=== PATIENT | female | born 1945 | race African-American/Black ===

== ENCOUNTER → 2016-11-25 | Outpatient (CLI) | payer MEDICARE ==
[~2016-11-25] MED LIST: ASPI81 PO; ASPI81CH CHEW; HUMA100I SC; HUMALOG SQ; IRON18TA2 PO; LANTUS2P SQ; LEVO.05 PO; PLAV75TA PO; SYNT50TA PO; blood pressure med
[2016-11-25 09:53] LABS: BACTERIA, URINE RARE /hpf; BLOOD, URINE NEG (NEG); GLUCOSE,URINE 70 mg/dL (NEG); KETONE, URINE NEG (NEG); MUCUS URINE FEW /lpf (OCC); NITRITE,URINE NEG (NEG); PH, URINE 5.5 (5.0-8.5); URINE COLOR LIGHT-YELLOW (YELLW/STRAW)
[2016-11-25 09:56] LABS: BASOPHIL % 0.6 % (0.0-2.0); EOSINOPHIL # 0.1 TH/MM3 (0-0.4); EOSINOPHIL % 1.3 % (0.0-4.0); HEMO FLAGS DIFF FINAL; LYMPH % 29.7 % (9.0-44.0); MEAN CELL VOLUME 88.9 FL (80.0-100.0); MEAN CORPUSCULAR HEMOGLOBIN 28.8 PG (27.0-34.0); MEAN CORPUSCULAR HGB CONC 32.4 % (32.0-36.0); MONO % 8.4 % (0.0-8.0); PLATELET COUNT 146 TH/MM3 (150-450); RED BLOOD COUNT 4.49 MIL/MM3 (4.00-5.30); RED CELL DISTRIBUTION WIDTH 13.6 % (11.6-17.2); WHITE BLOOD COUNT 6.7 TH/MM3 (4.0-11.0)
[2016-11-25 10:50] LABS: ALKALINE PHOSPHATASE 163 U/L (45-117); ALT (GPT) 17 U/L (10-53); ANION GAP 7 MEQ/L (5-15); AST (GOT) 6 U/L (15-37); BICARBONATE 31.7 MEQ/L (21.0-32.0); BLOOD UREA NITROGEN 31 MG/DL (7-18); CHLORIDE 100 MEQ/L (98-107); GLOMERULAR FILTRATION RATE 48 ML/MIN (>89); GLUCOSE,FASTING 184 MG/DL (74-99); POTASSIUM 3.5 MEQ/L (3.5-5.1); SODIUM (NA) 139 MEQ/L (136-145); TOTAL BILIRUBIN ADULT 0.2 MG/DL (0.2-1.0)
[2016-11-25 15:51] LABS: HEMOGLOBIN A1a 1.2 %; HEMOGLOBIN A1b 1.3 %; HEMOGLOBIN Ao 75.2 %; HEMOGLOBIN F 1.8 %; HEMOGLOBIN LA1C 2.8 %
== END ==
LOC: CLAB 08:57
PROVIDERS: ATTEND Family Medicine
DX: E03.8 Other specified hypothyroidism (principal); E11.65 Type 2 diabetes mellitus with hyperglycemia; E53.8 Deficiency of other specified B group vitamins
CPT/HCPCS: 36415; 80053; 81001; 82043; 82306; 82607; 82746; 83036; 84443; 85025

== ENCOUNTER → 2017-02-16 | Outpatient (CLI) | payer MEDICARE ==
[2017-02-16 09:38] LABS: ANION GAP 5 MEQ/L (5-15); BICARBONATE 30.2 MEQ/L (21.0-32.0); BLOOD UREA NITROGEN 21 MG/DL (7-18); CHLORIDE 107 MEQ/L (98-107); GLOMERULAR FILTRATION RATE 57 ML/MIN (>89); GLUCOSE,FASTING 275 MG/DL (74-99); POTASSIUM 4.2 MEQ/L (3.5-5.1); SODIUM (NA) 142 MEQ/L (136-145)
[2017-02-16 16:41] LABS: HEMOGLOBIN A1a 1.1 %; HEMOGLOBIN A1b 1.1 %; HEMOGLOBIN Ao 78.4 %; HEMOGLOBIN F 1.4 %; HEMOGLOBIN LA1C 3.3 %
== END ==
LOC: CLAB 08:42
DX: E10.65 Type 1 diabetes mellitus with hyperglycemia (principal)
CPT/HCPCS: 36415; 80048; 83036

== ENCOUNTER 2017-03-20 07:55 | Emergency (ER) | payer MEDICARE ==
[~2017-03-20] VITALS: Ht 165.1 cm; Wt 95.0 kg
[~2017-03-20 07:55] MED LIST changes: -ASPI81CH CHEW; -HUMALOG SQ; -IRON18TA2 PO; -LEVO.05 PO
[2017-03-20 07:57] VITALS: BP 175/92; PULSE 82; RESP 16; TEMP 98.2; O2SAT 99
[2017-03-20] MEDS ORDERED: HUMALOG SQ (08:20)
[2017-03-20] MEDS ORDERED: LANTUS2P SQ (08:20)
[2017-03-20] MEDS ORDERED: LEVO.05 PO (08:20)
[2017-03-20] MEDS ORDERED: IRON18TA2 PO (08:20)
[2017-03-20] MEDS ORDERED: ASPI81CH CHEW (08:20)
[2017-03-20 08:22] VITALS: BP 175/81; PULSE 73; RESP 18; O2SAT 95
[2017-03-20] MEDS ORDERED: SODIUM CHLOR 0.9% 1000 ML INJ 1,000 ML IV ONE (08:36)
--- NOTE | 2017-03-20 08:43 | PD ---
HPI . Leg cramps Chief Complaint: Neuro Symptoms/ Deficits Time Seen by Provider: 08:30 Travel History International Travel<30 days: No Contact w/Intl Traveler<30days: No Traveled to known affect area: No History of Present Illness HPI Patient presents complaining with leg cramps. Onset 3 days ago. Symptoms occur mainly at night. No obvious causative factor. Unrelieved by a muscle relaxant. No exacerbating factor. Symptoms are severe. She does report a positive previous similar history. Patient reports that she is currently on an antibiotic for urinary tract infection. Otherwise, there have been no recent changes to her medications. She is not having any vomiting or diarrhea. She has not been exerting herself excessively in the heat. PFSH Past Medical History Heart Rhythm Problems: No Cancer: No Cardiac Catheterization: Yes (thinks possibly) Cardiovascular Problems: Yes High Cholesterol: Yes Chest Pain: Yes Congestive Heart Failure: No Coronary Artery Disease: Yes Diabetes: Yes Patient Takes Glucophage: No Diminished Hearing: No GERD: Yes Glaucoma: Yes Genitourinary: No Hepatitis: No Hiatal Hernia: Yes Heparin Induced Thrombocytopen: No Hypertension: Yes Medical other: No Musculoskeletal: No Neurologic: Yes (NEUROPATHY) Psychiatric: No Reproductive: No Respiratory: No Thyroid Disease: Yes ?: Not Menopausal: Yes Past Surgical History Abdominal Surgery: Yes (CHOLECYSTECTOMY) Cholecystectomy: Yes Coronary Artery Bypass Graft: No Eye Surgery: Yes (LASER SURGERY BOTH EYES,CATARACT SX RIGHT EYE) Gynecologic Surgery: Yes (HYSTERECTOMY) Hysterectomy: Yes Pacemaker: No Other Surgery: Yes Family History Family Myocardial Infarction: No Social History Alcohol Use: No Tobacco Use: No Substance Use: No Allergies-Medications (Allergen,Severity, Reaction): Uncoded Allergies: DYE (Allergy, Severe, DYE GIVEN TO HER BY DR FRAZIER-PT WILL FIND OUT NAME OF DYE , 02/04/16) 08-19-09 "iv dye", "throat swelling, itching" Reported Meds & Prescriptions Reported Meds & Active Scripts Active Reported Iron (Ferrous Fumarate) 18 Mg Tab 18 Mg PO BID Synthroid (Levothyroxine Sodium) 50 Mcg Tab 50 Mcg PO DAILY Lantus Inj (Insulin Glargine) 1,000 Unit/10 Ml Vial 20 Units SQ BID Humalog Inj (Insulin Human Lispro) 1,000 Unit/10 Ml Vial 15 Units SQ TIDAC Aspirin 81 Mg Chew 81 Mg CHEW DAILY Review of Systems Except as stated in HPI: all other systems reviewed are Neg General / Constitutional: No: Fever, Chills Gastrointestinal: Positive: Nausea, No: Vomiting, Diarrhea Musculoskeletal: Positive: Cramping Physical Exam Narrative GENERAL: Patient is awake and alert and does not appear to be in any distress. SKIN: Warm and dry. HEAD: Atraumatic. Normocephalic. EYES: Pupils equal and round. Extraocular movements are intact. ENT: No nasal bleeding or discharge. Mucous membranes pink and moist. NECK: Trachea midline. Neck is supple. CARDIOVASCULAR: Regular rate and rhythm. Heart sounds are normal. RESPIRATORY: No accessory muscle use. Lungs are clear with full air movement throughout. GASTROINTESTINAL: Abdomen soft, non-tender, nondistended. MUSCULOSKELETAL: No obvious deformities. No edema. Legs are nontender to palpation. No swelling noted. No abnormal coloration. NEUROLOGICAL: Awake and alert. No obvious cranial nerve deficits. Motor grossly within normal limits. Normal speech. PSYCHIATRIC: Appropriate mood and affect; insight and judgment normal. Data Data Last Documented VS Vital Signs Date Time Temp Pulse Resp B/P Pulse Ox O2 Delivery O2 Flow Rate FiO2 03/20/17 08:22 73 18 175/81 95 03/20/17 07:57 98.2 Orders Electrocardiogram (03/20/17 ) Basic Metabolic Panel (Bmp) (03/20/17 08:36) Complete Blood Count With Diff (03/20/17 08:36) Magnesium (Mg) (03/20/17 08:36) Urinalysis - C+S If Indicated (03/20/17 08:36) Iv Access Insert/Monitor (03/20/17 08:36) Sodium Chloride 0.9% Flush (Ns Flush) (03/20/17 08:45) Sodium Chlor 0.9% 1000 Ml Inj (Ns 1000 M (03/20/17 08:36) Lorazepam Inj (Ativan Inj) (03/20/17 08:45) Urine Culture (03/20/17 08:46) Labs Laboratory Tests Test 03/20/17 08:46 White Blood Count 9.5 TH/MM3 Red Blood Count 4.37 MIL/MM3 Hemoglobin 12.9 GM/DL Hematocrit 38.8 % Mean Corpuscular Volume 88.8 FL Mean Corpuscular Hemoglobin 29.6 PG Mean Corpuscular Hemoglobin 33.3 % Concent Red Cell Distribution Width 14.0 % Platelet Count 176 TH/MM3 Mean Platelet Volume 10.8 FL Neutrophils (%) (Auto) 72.6 % Lymphocytes (%) (Auto) 19.6 % Monocytes (%) (Auto) 5.8 % Eosinophils (%) (Auto) 1.6 % Basophils (%) (Auto) 0.4 % Neutrophils # (Auto) 6.9 TH/MM3 Lymphocytes # (Auto) 1.9 TH/MM3 Monocytes # (Auto) 0.6 TH/MM3 Eosinophils # (Auto) 0.1 TH/MM3 Basophils # (Auto) 0.0 TH/MM3 CBC Comment DIFF FINAL Differential Comment Urine Color ORANGE Urine Turbidity CLEAR Urine pH 5.5 Urine Specific [place] 1.014 Urine Protein 100 mg/dL Urine Glucose (UA) NEG mg/dL Urine Ketones NEG mg/dL Urine Occult Blood TRACE Urine Nitrite POS Urine Bilirubin NEG Urine Urobilinogen 2.0 MG/DL Urine Leukocyte Esterase NEG Urine RBC 2 /hpf Urine WBC 3 /hpf Urine Squamous Epithelial 1 /hpf Cells Urine Bacteria RARE /hpf Urine Mucus FEW /lpf Microscopic Urinalysis Comment CULTURE INDICATED Sodium Level 140 MEQ/L Potassium Level 4.1 MEQ/L Chloride Level 104 MEQ/L Carbon Dioxide Level 31.5 MEQ/L Anion Gap 5 MEQ/L Blood Urea Nitrogen 29 MG/DL Creatinine 1.46 MG/DL Estimat Glomerular Filtration 43 ML/MIN Rate Random Glucose 76 MG/DL Calcium Level 8.6 MG/DL Magnesium Level 2.1 MG/DL [facility] Medical Decision Making Medical Screen Exam Complete: Yes Emergency Medical Condition: Yes Medical Record Reviewed: Yes (medical history is significant for hypertension, diabetes, hyperlipidemia, CHF, TIA, coronary artery disease and diverticulosis) Interpretation(s) EKG shows a sinus rhythm with left ventricular hypertrophy. Differential Diagnosis Differential diagnosis of leg pain includes but is not limited to lumbar radiculopathy, arthritis, myalgias, DVT. Narrative Course Patient presents for evaluation of nocturnal leg cramps. CBC & BMP Diagram 03/20/17 08:46 UA shows positive nitrite with rare bacteria and 3 white cells. The patient is currently being treated for a UTI. I have not found any electrolyte abnormalities to explain her nocturnal leg cramps. She will be advised to do stretching exercises prior to bed and to take a vitamin B complex supplement. Diagnosis Primary Impression: Nocturnal leg cramps Patient Instructions: General Instructions, Leg Cramps (ED) Additional Instructions: Stretcher leg muscles nightly before bed. By an [id number] B complex vitamin and take as directed. Disposition: 01 DISCHARGE HOME Condition: Stable Irene Armas MD March 20, 2017 08:43
[2017-03-20] MEDS ORDERED: SODIUM CHLORIDE 0.9% FLUSH 10 ML FLUSH IVF PRN (08:45)
[2017-03-20] MEDS ORDERED: LORazepam 2 MG/ML VIAL IV PUSH ONE (08:45)
[2017-03-20 09:13] LABS: AUTOMATED NEUTROPHIL # 6.9 TH/MM3 (1.8-7.7); BASOPHIL % 0.4 % (0.0-2.0); EOSINOPHIL # 0.1 TH/MM3 (0-0.4); EOSINOPHIL % 1.6 % (0.0-4.0); HEMATOCRIT 38.8 % (35.0-46.0); HEMO FLAGS DIFF FINAL; LYMPH % 19.6 % (9.0-44.0); LYMPHOCYTE # 1.9 TH/MM3 (1.0-4.8); MEAN CELL VOLUME 88.8 FL (80.0-100.0); MEAN CORPUSCULAR HEMOGLOBIN 29.6 PG (27.0-34.0); MEAN CORPUSCULAR HGB CONC 33.3 % (32.0-36.0); MONO % 5.8 % (0.0-8.0); NEUT % 72.6 % (16.0-70.0); PLATELET COUNT 176 TH/MM3 (150-450); RED BLOOD COUNT 4.37 MIL/MM3 (4.00-5.30); WHITE BLOOD COUNT 9.5 TH/MM3 (4.0-11.0)
[2017-03-20 09:22] LABS: BACTERIA, URINE RARE /hpf; BLOOD, URINE TRACE (NEG); COMMENT (UR) CULTURE INDICATED; CULTURE IF INDICATED CULTURE INDICATED; GLUCOSE,URINE NEG (NEG); KETONE, URINE NEG (NEG); MUCUS URINE FEW /lpf (OCC); NITRITE,URINE POS (NEG); PH, URINE 5.5 (5.0-8.5); SQUAMOUS EPITHELIAL CELL URINE 1 /hpf (0-5); URINE COLOR ORANGE (YELLW/STRAW)
[2017-03-20 09:35] LABS: BICARBONATE 31.5 MEQ/L (21.0-32.0); MAGNESIUM 2.1 MG/DL (1.5-2.5); POTASSIUM 4.1 MEQ/L (3.5-5.1)
[2017-03-20 10:21] VITALS: BP 160/64
--- NOTE | 2017-03-20 15:03 | EKG ---
Date Performed: 03/20/2017 Time Performed: 08:14:26 PTAGE: 71 years EKG: Sinus rhythm WITH MARKED SINUS ARRHYTHMIA LEFT VENTRICULAR HYPERTROPHY AND ST-T CHANGE When compared to previous tracing, the marked sinus arrhythmia Is new. There has been improvement in the previously noted nonsp ecific ST-T wave changes. ABNORMAL ECG PREVIOUS TRACING : 05/07/2016 21.50.54 DOCTOR: Ashleigh Moulton Interpretating Date/Time 03/20/2017 15:02:46
== END 2017-03-20 10:07 | disposition home or self-care (01) ==
LOC: NEPC 07:55
DX: R25.2 Cramp and spasm (principal); E78.00 Pure hypercholesterolemia, unspecified; I25.10 Atherosclerotic heart disease of native coronary artery without angina pectoris; E11.9 Type 2 diabetes mellitus without complications; I10 Essential (primary) hypertension; Z79.4 Long term (current) use of insulin; Z79.82 Long term (current) use of aspirin; B96.89 Other specified bacterial agents as the cause of diseases classified elsewhere; R94.31 Abnormal electrocardiogram [ECG] [EKG]
CPT/HCPCS: 80048; 81001; 83735; 85025; 87086; 93005; 96374; 99283; J2060; J7030

== ENCOUNTER → 2017-04-14 | Outpatient (CLI) | payer MEDICARE ==
[~2017-04-14] MED LIST changes: -ASPI81 PO; +ASPI81CH CHEW; -HUMA100I SC; +HUMALOG SQ; +IRON18TA2 PO; +LEVO.05 PO; -PLAV75TA PO; -SYNT50TA PO; -blood pressure med
[2017-04-14 09:05] LABS: BACTERIA, URINE RARE /hpf; BLOOD, URINE NEG (NEG); COMMENT (UR) CULT NOT INDICATED; CULTURE IF INDICATED CULT NOT INDICATED; GLUCOSE,URINE NEG (NEG); KETONE, URINE NEG (NEG); NITRITE,URINE NEG (NEG); PH, URINE 5.5 (5.0-8.5); SQUAMOUS EPITHELIAL CELL URINE 2 /hpf (0-5); URINE COLOR LIGHT-YELLOW (YELLW/STRAW)
[2017-04-14 09:35] LABS: ALT (GPT) 26 U/L (10-53); ANION GAP 6 MEQ/L (5-15); BICARBONATE 29.4 MEQ/L (21.0-32.0); BLOOD UREA NITROGEN 36 MG/DL (7-18); CHLORIDE 105 MEQ/L (98-107); GLOMERULAR FILTRATION RATE 50 ML/MIN (>89); GLUCOSE,FASTING 234 MG/DL (74-99); SODIUM (NA) 140 MEQ/L (136-145)
[2017-04-14 10:00] LABS: HDL CHOLESTEROL 75.5 MG/DL (40.0-60.0); LDL CHOLESTEROL 146 MG/DL (0-99)
[2017-04-14 10:55] LABS: HEMOGLOBIN A1a 1.1 %; HEMOGLOBIN Ao 78.7 %; HEMOGLOBIN F 1.5 %; HEMOGLOBIN LA1C 2.9 %; HEMOGLOBIN P3 5.1 %
== END ==
LOC: CLAB 08:33
DX: E03.4 Atrophy of thyroid (acquired) (principal); E10.65 Type 1 diabetes mellitus with hyperglycemia; I10 Essential (primary) hypertension; E78.2 Mixed hyperlipidemia; E55.9 Vitamin D deficiency, unspecified; E53.9 Vitamin B deficiency, unspecified
CPT/HCPCS: 36415; 80048; 80061; 81001; 82043; 82306; 82607; 83036; 84443; 84460

== ENCOUNTER → 2017-05-25 | Outpatient (CLI) | payer MEDICARE ==
[2017-05-25 12:05] LABS: AUTOMATED NEUTROPHIL # 4.3 TH/MM3 (1.8-7.7); BASOPHIL % 0.6 % (0.0-2.0); EOSINOPHIL # 0.1 TH/MM3 (0-0.4); EOSINOPHIL % 1.2 % (0.0-4.0); HEMATOCRIT 38.2 % (35.0-46.0); HEMO FLAGS DIFF FINAL; LYMPH % 20.9 % (9.0-44.0); LYMPHOCYTE # 1.2 TH/MM3 (1.0-4.8); MEAN CELL VOLUME 90.8 FL (80.0-100.0); MEAN CORPUSCULAR HEMOGLOBIN 29.4 PG (27.0-34.0); MEAN CORPUSCULAR HGB CONC 32.4 % (32.0-36.0); MONO % 5.6 % (0.0-8.0); NEUT % 71.7 % (16.0-70.0); PLATELET COUNT 168 TH/MM3 (150-450); RED BLOOD COUNT 4.21 MIL/MM3 (4.00-5.30); RED CELL DISTRIBUTION WIDTH 14.1 % (11.6-17.2)
[2017-05-25 12:22] LABS: BICARBONATE 29.5 MEQ/L (21.0-32.0); POTASSIUM 3.9 MEQ/L (3.5-5.1)
[2017-05-26 21:57] LABS: ALBUMIN SPE 3.75 GM/DL (3.50-5.00); ALPHA 1 GLOBULIN 0.24 GM/DL (0.11-0.29); ALPHA 2 GLOBULIN 0.89 GM/DL (0.22-1.00); BETA GLOBULINS (SPE) 1.06 GM/DL (0.53-1.03)
[2017-05-27 03:50] LABS: MYELOPEROXIDASE LESS THAN 1.0 AI (<1.0); PROTEINASE-3 LESS THAN 1.0 AI (<1.0)
[2017-05-29 03:50] LABS: KAPPA/LAMBDA FREE 1.58 (0.26-1.65)
== END ==
LOC: CLAB 10:58
PROVIDERS: ATTEND Internal Medicine Nephrology
DX: D35.00 Benign neoplasm of unspecified adrenal gland (principal); E55.9 Vitamin D deficiency, unspecified; I12.9 Hypertensive chronic kidney disease with stage 1 through stage 4 chronic kidney disease, or unspecified chronic kidney disease; N18.3 Chronic kidney disease, stage 3 (moderate)
CPT/HCPCS: 36415; 80069; 82088; 82306; 83883; 83970; 84165; 84244; 85025; 86021; 86160; 86803

== ENCOUNTER → 2017-05-26 | Outpatient (CLI) | payer MEDICARE ==
[2017-05-26 10:11] LABS: BLOOD, URINE NEG (NEG); GLUCOSE,URINE 70 mg/dL (NEG); KETONE, URINE NEG (NEG); MUCUS URINE FEW /lpf (OCC); NITRITE,URINE NEG (NEG); PH, URINE 5.5 (5.0-8.5); URINE COLOR YELLOW (YELLW/STRAW)
== END ==
LOC: CLAB 07:50
PROVIDERS: ATTEND Internal Medicine Nephrology
DX: D35.00 Benign neoplasm of unspecified adrenal gland (principal); I12.9 Hypertensive chronic kidney disease with stage 1 through stage 4 chronic kidney disease, or unspecified chronic kidney disease; N18.3 Chronic kidney disease, stage 3 (moderate); E55.9 Vitamin D deficiency, unspecified
CPT/HCPCS: 81001; 82570; 84156; 86335

== ENCOUNTER → 2017-07-27 | Outpatient (CLI) | payer MEDICARE ==
[2017-07-27 08:44] LABS: BACTERIA, URINE MOD /hpf; BLOOD, URINE TRACE (NEG); GLUCOSE,URINE 150 mg/dL (NEG); KETONE, URINE NEG (NEG); NITRITE,URINE NEG (NEG); PH, URINE 5.5 (5.0-8.5); SQUAMOUS EPITHELIAL CELL URINE 1 /hpf (0-5); URINE COLOR YELLOW (YELLW/STRAW)
[2017-07-27 09:08] LABS: ANION GAP 6 MEQ/L (5-15); BICARBONATE 29.1 MEQ/L (21.0-32.0); BLOOD UREA NITROGEN 25 MG/DL (7-18); CHLORIDE 104 MEQ/L (98-107); GLOMERULAR FILTRATION RATE 48 ML/MIN (>89); GLUCOSE,FASTING 277 MG/DL (74-99); SODIUM (NA) 139 MEQ/L (136-145)
[2017-07-27 09:09] LABS: ALT (GPT) 17 U/L (10-53)
[2017-07-27 09:34] LABS: HDL CHOLESTEROL 67.9 MG/DL (40.0-60.0); LDL CHOLESTEROL 166 MG/DL (0-99)
[2017-07-27 16:50] LABS: HEMOGLOBIN A1a 1.2 %; HEMOGLOBIN A1b 1.1 %; HEMOGLOBIN Ao 77.3 %; HEMOGLOBIN F 1.6 %; HEMOGLOBIN LA1C 3.4 %; HEMOGLOBIN P3 5.4 %
== END ==
LOC: CLAB 08:05
DX: E78.2 Mixed hyperlipidemia (principal); E10.65 Type 1 diabetes mellitus with hyperglycemia; I10 Essential (primary) hypertension; E55.9 Vitamin D deficiency, unspecified; E53.9 Vitamin B deficiency, unspecified; E03.4 Atrophy of thyroid (acquired)
CPT/HCPCS: 36415; 80048; 80061; 81001; 82043; 82306; 82607; 83036; 84443; 84460

== ENCOUNTER → 2017-10-10 | Outpatient (CLI) | payer MEDICARE ==
[~2017-10-10] MED LIST changes: +ASPI-516 CHEW; -ASPI81CH CHEW
[2017-10-10 10:11] LABS: BICARBONATE 27.9 MEQ/L (21.0-32.0); POTASSIUM 3.9 MEQ/L (3.5-5.1)
[2017-10-10 10:20] LABS: HDL CHOLESTEROL 80.3 MG/DL (40.0-60.0)
== END ==
LOC: CLAB 08:50
PROVIDERS: ATTEND Family Medicine
DX: E78.2 Mixed hyperlipidemia (principal); E55.9 Vitamin D deficiency, unspecified; N18.9 Chronic kidney disease, unspecified; E11.22 Type 2 diabetes mellitus with diabetic chronic kidney disease; E11.65 Type 2 diabetes mellitus with hyperglycemia
CPT/HCPCS: 36415; 80048; 80061; 82306; 84460; 84681

== ENCOUNTER 2017-10-18 16:10 | Observation (INO) | payer MEDICARE ==
[2017-10-18] VITALS (9 sets, daily range): BP systolic 131–192; BP diastolic 58–84; PULSE 76–85; RESP 15–20; TEMP 98.5; O2SAT 93–96
[2017-10-18] MEDS ORDERED: SODIUM CHLOR 0.9% 1000 ML INJ 1,000 ML IV ONE (17:20)
[2017-10-18] MEDS ORDERED: SODIUM CHLORIDE 0.9% FLUSH 10 ML FLUSH IVF PRN (17:30)
[2017-10-18] MEDS ORDERED: ONDANSETRON HCL 4 MG/2 ML VIAL IVP ONE (17:30)
--- NOTE | 2017-10-18 17:38 | RADRPT ---
EXAM DATE/TIME: 10/18/2017 17:29 [facility] COMPARISON: CHEST SINGLE AP, May 07, 2016, 14:16. INDICATIONS : Syncope. MEDICAL HISTORY : Hypertension. SURGICAL HISTORY : None. ENCOUNTER: Initial ACUITY: 1 day PAIN SCORE: 0/10 LOCATION: Bilateral chest FINDINGS: The heart is mildly to moderately enlarged. Lungs are free of significant congestion or consolidating airspace disease. There are no pleural effu sions. Osseous structures are intact. CONCLUSION: No acute disease. Mild to moderate cardiomegaly. Arnulfo Morales MD on October 18, 2017 at 17:36 Board Certified Radiologist. This report was verified electronically.
[2017-10-18] MEDS ORDERED: DEXTROSE 50% IN WATER 50 ML SYRINGE ONE ×2 (17:56→18:01)
--- NOTE | 2017-10-18 18:00 | PD ---
HPI Chief Complaint: Neuro Symptoms/ Deficits Time Seen by Provider: 17:09 Travel History International Travel<30 days: No Contact w/Intl Traveler<30days: No Traveled to known affect area: No History of Present Illness HPI 72-year-old Afro-[place] female presents the emergency department with question of syncopal episode in her home earlier this morning. Patient reports that she was on the phone with her sister when she felt generally weak and unwell. She hung up with her sister and then is unsure if she may have had a syncopal episode. She states she woke up with food on her chest but does not recall vomiting. Patient is a diabetic, and is unsure of her blood sugar has been high recently as her blood sugar monitor has not been working appropriately. She states she did not feel well last evening, but nonspecific symptoms are noted. Patient went to see her physician who referred her here for further workup of syncopal episode. She denies significant headache, or pain at this time. Patient denies liver issues, or pancreatitis in the past. Patient states increased urination the last several days. She denies pain with urination however. Patient has had some mild leg cramps recently, but no other specific complaints are noted. Patient states right now she feels weak but otherwise fine. No recent fevers are noted. Patient is allergic to dye. PFSH Past Medical History Heart Rhythm Problems: No Cancer: No Cardiac Catheterization: Yes (thinks possibly) Cardiovascular Problems: Yes High Cholesterol: Yes Chest Pain: Yes Congestive Heart Failure: No Coronary Artery Disease: Yes Diabetes: Yes Patient Takes Glucophage: No Diminished Hearing: No GERD: Yes Glaucoma: Yes Genitourinary: No Hepatitis: No Hiatal Hernia: Yes Heparin Induced Thrombocytopen: No Hypertension: Yes Musculoskeletal: No Neurologic: Yes (NEUROPATHY) Psychiatric: No Reproductive: No Respiratory: No Thyroid Disease: Yes Menopausal: Yes Past Surgical History Abdominal Surgery: Yes (CHOLECYSTECTOMY) Cholecystectomy: Yes Coronary Artery Bypass Graft: No Eye Surgery: Yes (LASER SURGERY BOTH EYES,CATARACT SX RIGHT EYE) Gynecologic Surgery: Yes (HYSTERECTOMY) Hysterectomy: Yes Pacemaker: No Other Surgery: Yes Social History Alcohol Use: No Tobacco Use: No Substance Use: No Allergies-Medications (Allergen,Severity, Reaction): Uncoded Allergies: DYE (Allergy, Unknown, DYE GIVEN TO HER BY DR FRAZIER-PT WILL FIND OUT NAME OF DYE , 10/18/17) 08-19-09 "iv dye", "throat swelling, itching" Reported Meds & Prescriptions Reported Meds & Active Scripts Active Reported Simvastatin 10 Mg Tab 10 Mg PO DAILY [b/p med] 1 Tab PO DAILY Vitamin D-3 (Cholecalciferol) 1,000 Unit Cap 1 Cap PO DAILY Humalog Inj (Insulin Human Lispro) 1,000 Unit/10 Ml Vial 2-12 Units SQ ACHS PRN Max dose at bedtime:( )units; sugars < 70,(0)units; sugars 150-199,(2)units; sugars 200-249,(4)units; sugars 250-299,(7)units; sugars 300-349,(10)units; sugars more than 349,(12)units. Synthroid (Levothyroxine Sodium) 50 Mcg Tab 50 Mcg PO DAILY Aspirin 81 Mg Chew 81 Mg CHEW DAILY Review of Systems Except as stated in HPI: all other systems reviewed are Neg General / Constitutional: No: Fever, Chills Eyes: No: Visual changes HENT: Positive: Rhinitis, No: Headaches, Vertigo, Lightheadedness, Sore Throat , Rhinorrhea, Congestion, Nosebleed, Neck Stiffness, Neck Pain (recently), Gingival Bleeding, Dental Difficulties, Ear Discharge, Earache Cardiovascular: No: Chest Pain or Discomfort, Palpitations, Irregular Rhythm, Tachycardia, Diaphoresis Respiratory: No: Cough, Shortness of Breath, Wheezing Gastrointestinal: Positive: Vomiting, No: Nausea, Diarrhea (presumed this morning.), Abdominal Pain Genitourinary: Positive: Frequency, No: Urgency, Dysuria Musculoskeletal: No: Pain Skin: No Rash Neurologic: No: Weakness Psychiatric: No: Depression Endocrine: Positive: Polyuria, No: Polydipsia Hematologic/Lymphatic: No: Easy Bruising Physical Exam Narrative GENERAL: Patient is lying comfortably on the exam table in no acute distress. SKIN: Warm and dry. Normal color. Somewhat decreased turgor. HEAD: Atraumatic. Normocephalic. EYES: Pupils equal and round. Possible Mild scleral icterus. No injection or drainage. ENT: No nasal bleeding or discharge. Mucous membranes pink and moist. Pharynx is clear. Airway is patent. TMs are clear bilaterally. NECK: Trachea midline. Supple and nontender. CARDIOVASCULAR: Regular rate and rhythm. No murmurs gallops or rubs. RESPIRATORY: No accessory muscle use. Clear to auscultation. Breath sounds equal bilaterally. GASTROINTESTINAL: Abdomen soft, non-tender, nondistended. Hepatic and splenic margins not palpable. MUSCULOSKELETAL: Extremities without clubbing, cyanosis, or edema. No obvious deformities. NEUROLOGICAL: Awake and alert. No obvious cranial nerve deficits. Motor grossly within normal limits. Five out of 5 muscle strength in the arms and legs. Normal speech. PSYCHIATRIC: Appropriate mood and affect; insight and judgment normal. Data Data Last Documented VS Vital Signs Date Time Temp Pulse Resp B/P (MAP) Pulse Ox O2 Delivery O2 Flow Rate FiO2 10/18/17 20:04 76 18 173/76 (108) 93 Room Air 10/18/17 16:11 98.5 Orders Orders Electrocardiogram (10/18/17 17:20) Complete Blood Count With Diff (10/18/17 17:20) Comprehensive Metabolic Panel (10/18/17 17:20) Magnesium (Mg) (10/18/17 17:20) Ckmb (Isoenzyme) Profile (10/18/17 17:20) Troponin I (10/18/17 17:20) Act Partial Throm Time (Ptt) (10/18/17 17:20) Prothrombin Time / Inr (Pt) (10/18/17 17:20) Urinalysis - C+S If Indicated (10/18/17 17:20) Chest, Single Ap (10/18/17 17:20) Blood Glucose (10/18/17 17:20) Ecg Monitoring (10/18/17 17:20) Iv Access Insert/Monitor (10/18/17 17:20) Oximetry (10/18/17 17:20) Ondansetron Inj (Zofran Inj) (10/18/17 17:30) Sodium Chloride 0.9% Flush (Ns Flush) (10/18/17 17:30) Sodium Chlor 0.9% 1000 Ml Inj (Ns 1000 M (10/18/17 17:20) Dextrose 50% In Wendy (Syr) Inj (D50w (Syr (10/18/17 17:56) Dextrose 50% In Wendy (Syr) Inj (D50w (Syr (10/18/17 18:01) CKMB (10/18/17 18:27) CKMB% (10/18/17 18:27) Orthostatic Vital Signs (10/18/17 19:31) Admit Order (Ed Use Only) (10/18/17 21:13) Labs Laboratory Tests Test 10/18/17 18:27 10/18/17 19:50 White Blood Count 12.3 TH/MM3 Red Blood Count 4.38 MIL/MM3 Hemoglobin 12.9 GM/DL Hematocrit 39.4 % Mean Corpuscular Volume 90.0 FL Mean Corpuscular Hemoglobin 29.5 PG Mean Corpuscular Hemoglobin Concent 32.8 % Red Cell Distribution Width 13.9 % Platelet Count 160 TH/MM3 Mean Platelet Volume 11.5 FL Neutrophils (%) (Auto) 79.5 % Lymphocytes (%) (Auto) 14.6 % Monocytes (%) (Auto) 4.8 % Eosinophils (%) (Auto) 0.5 % Basophils (%) (Auto) 0.6 % Neutrophils # (Auto) 9.8 TH/MM3 Lymphocytes # (Auto) 1.8 TH/MM3 Monocytes # (Auto) 0.6 TH/MM3 Eosinophils # (Auto) 0.1 TH/MM3 Basophils # (Auto) 0.1 TH/MM3 CBC Comment DIFF FINAL Differential Comment Prothrombin Time 10.0 SEC Prothromb Time International Ratio 1.0 RATIO Activated Partial Thromboplast Time 29.1 SEC Blood Urea Nitrogen 31 MG/DL Creatinine 1.49 MG/DL Random Glucose 130 MG/DL Total Protein 7.6 GM/DL Albumin 3.0 GM/DL Calcium Level 9.4 MG/DL Magnesium Level 1.7 MG/DL Alkaline Phosphatase 122 U/L Aspartate Amino Transf (AST/SGOT) 28 U/L Alanine Aminotransferase (ALT/SGPT) 18 U/L Total Bilirubin 0.4 MG/DL Sodium Level 139 MEQ/L Potassium Level 4.0 MEQ/L Chloride Level 104 MEQ/L Carbon Dioxide Level 27.8 MEQ/L Anion Gap 7 MEQ/L Estimat Glomerular Filtration Rate 42 ML/MIN Total Creatine Kinase 159 U/L Creatine Kinase MB 2.1 NG/ML Troponin I LESS THAN 0.02 NG/ML Urine Color YELLOW Urine Turbidity CLEAR Urine pH 5.5 Urine Specific [place] 1.013 Urine Protein 100 mg/dL Urine Glucose (UA) NEG mg/dL Urine Ketones NEG mg/dL Urine Occult Blood NEG Urine Nitrite NEG Urine Bilirubin NEG Urine Urobilinogen LESS THAN 2.0 MG/DL Urine Leukocyte Esterase NEG Urine RBC 1 /hpf Urine WBC 1 /hpf Urine Squamous Epithelial Cells 1 /hpf Urine Bacteria RARE /hpf Urine Hyaline Casts 3 /lpf Urine Mucus FEW /lpf Microscopic Urinalysis Comment CULT NOT INDICATED MDM Medical Decision Making Medical Screen Exam Complete: Yes Emergency Medical Condition: Yes Medical Record Reviewed: Yes Differential Diagnosis Generalized weakness. Syncopal episode. Electrolyte imbalance. Hypoglycemia. Cardiac syndrome. Hepatic disease. Narrative Course Patient is medically stable at time of exam. EKG and chest x-ray are ordered. EKG shows sinus rhythm with marked sinus arrhythmia. Nonspecific ST abnormality. This is unchanged from previous EKG of March 2017. Labs ordered including CBC, CMP, lactic acid, lipase, urinalysis. Cardiac panel is ordered as well. IV access is obtained patient is given thousand and a normal saline bolus as well as 4 mg Zofran IV. Fingerstick glucose is taken and found to be 135. CBC shows slight leukocytosis of 12.3. Coagulation studies are normal. CMP shows normal electrolytes, BUN of 31 with creatinine of 1.49. This is slightly higher than previous, which was 1.20. First troponin is less than 0.02. LFTs are normal. Alkaline phosphatase is slightly elevated at 122. Urinalysis shows no signs of acute infection. Patient is symptomatically orthostatic by nursing staff. Patient is felt to warrant observation as she lives alone is a fall risk with positive orthostasis with weakness. Call was placed to the hospitalist and the patient is accepted for observation. Diagnosis Primary Impression: Orthostatic lightheadedness Additional Impression: Weakness Admitting Information Admitting Physician Requests: Observation Condition: Stable Keenan Monten[place] Oct 18, 2017 18:00
[2017-10-18 18:39] LABS: AUTOMATED NEUTROPHIL # 9.8 TH/MM3 (1.8-7.7); BASOPHIL # 0.1 TH/MM3 (0-0.2); BASOPHIL % 0.6 % (0.0-2.0); EOSINOPHIL # 0.1 TH/MM3 (0-0.4); EOSINOPHIL % 0.5 % (0.0-4.0); HEMATOCRIT 39.4 % (35.0-46.0); HEMO FLAGS DIFF FINAL; LYMPH % 14.6 % (9.0-44.0); LYMPHOCYTE # 1.8 TH/MM3 (1.0-4.8); MEAN CORPUSCULAR HEMOGLOBIN 29.5 PG (27.0-34.0); MEAN CORPUSCULAR HGB CONC 32.8 % (32.0-36.0); MONO % 4.8 % (0.0-8.0); NEUT % 79.5 % (16.0-70.0); PLATELET COUNT 160 TH/MM3 (150-450); RED BLOOD COUNT 4.38 MIL/MM3 (4.00-5.30); RED CELL DISTRIBUTION WIDTH 13.9 % (11.6-17.2); WHITE BLOOD COUNT 12.3 TH/MM3 (4.0-11.0)
[2017-10-18 18:53] LABS: APTT (PATIENT) 29.1 SEC (24.3-30.1)
[2017-10-18] MEDS ORDERED: b/p med PO (19:11)
[2017-10-18] MEDS ORDERED: HUMALOG SQ (19:11)
[2017-10-18] MEDS ORDERED: D31000CA3 PO (19:11)
[2017-10-18] MEDS ORDERED: SIMV10TA PO (19:11)
[2017-10-18 19:16] LABS: ALT (GPT) 18 U/L (10-53); ANION GAP 7 MEQ/L (5-15); AST (GOT) 28 U/L (15-37); BICARBONATE 27.8 MEQ/L (21.0-32.0); BLOOD UREA NITROGEN 31 MG/DL (7-18); CHLORIDE 104 MEQ/L (98-107); GLOMERULAR FILTRATION RATE 42 ML/MIN (>89); MAGNESIUM 1.7 MG/DL (1.5-2.5); SODIUM (NA) 139 MEQ/L (136-145)
[2017-10-18 19:25] LABS: ALKALINE PHOSPHATASE 122 U/L (45-117); CREATINE KINASE 159 U/L (26-192); TOTAL BILIRUBIN ADULT 0.4 MG/DL (0.2-1.0)
[2017-10-18 19:38] LABS: CKMB 2.1 NG/ML (0.5-3.6)
[2017-10-18 20:34] LABS: BACTERIA, URINE RARE /hpf; BLOOD, URINE NEG (NEG); COMMENT (UR) CULT NOT INDICATED; CULTURE IF INDICATED CULT NOT INDICATED; GLUCOSE,URINE NEG (NEG); HYALINE CAST, URINE 3 /lpf (RARE); KETONE, URINE NEG (NEG); MUCUS URINE FEW /lpf (OCC); NITRITE,URINE NEG (NEG); PH, URINE 5.5 (5.0-8.5); SQUAMOUS EPITHELIAL CELL URINE 1 /hpf (0-5); URINE COLOR YELLOW (YELLW/STRAW)
[2017-10-18] MEDS ORDERED: SODIUM CHLORIDE 0.9% FLUSH 10 ML FLUSH IV FLUSH PRN (22:30)
[2017-10-18] MEDS ORDERED: DEXTROSE 50% IN WATER 50 ML VIAL(D50) IV PUSH PRN (22:30)
[2017-10-18] MEDS ORDERED: GLUCAGON 1 MG/ML VIAL OTHER PRN (22:30)
--- NOTE | 2017-10-18 23:01 | HHI.HP ---
[facility] Physician Venkatesh Rodriguez MD Admission Diagnosis Weakness/Orthostatic Diagnoses: Travel History International Travel<30 Days: No Contact w/Intl Traveler <30 Da: No Traveled to Known Affected Are: No History of Present Illness 72-year-old female with a past medical history significant for hypertension, hyperlipidemia and insulin-dependent diabetes mellitus presents to the emergency department with a history of fatigue and generalized weakness. The patient reports that she lost consciousness after having the phone with her sister. She awoke to find emesis on her chest but has no memory of vomiting. She is sleeping at the time of our interview and obtaining information is incredibly difficult. She denies chest pain, shortness of breath. Denies any other associated symptoms. Creatinine 1.49, was 1.2 on 10/10/17. Review of Systems Denies fever or chills Denies blurry vision, otorrhea, rhinorrhea Denies sore throat and cough No chest pain, palpitations, shortness of breath No abdominal pain Denies constipation/diarrhea/nausea. Positive vomiting Denies muscle pain/weakness No rashes Past Family Social History Past Medical History Hypertension Insulin-dependent diabetes mellitus Hyperlipidemia Hypothyroidism Past Surgical History Hysterectomy Reported Medications Reported Meds & Active Scripts Active Reported Simvastatin 10 Mg Tab 10 Mg PO DAILY [b/p med] 1 Tab PO DAILY Vitamin D-3 (Cholecalciferol) 1,000 Unit Cap 1 Cap PO DAILY Humalog Inj (Insulin Human Lispro) 1,000 Unit/10 Ml Vial 2-12 Units SQ ACHS PRN Max dose at bedtime:( )units; sugars < 70,(0)units; sugars 150-199,(2)units; sugars 200-249,(4)units; sugars 250-299,(7)units; sugars 300-349,(10)units; sugars more than 349,(12)units. Synthroid (Levothyroxine Sodium) 50 Mcg Tab 50 Mcg PO DAILY Aspirin 81 Mg Chew 81 Mg CHEW DAILY Allergies: Uncoded Allergies: DYE (Allergy, Unknown, DYE GIVEN TO HER BY DR FRAZIER-PT WILL FIND OUT NAME OF DYE , 10/18/17) 08-19-09 "iv dye", "throat swelling, itching" Family History Mother with diabetes mellitus. Social History Denies alcohol, tobacco and illicit drugs Physical Exam Vital Signs Vital Signs Date Time Temp Pulse Resp B/P (MAP) Pulse Ox O2 Delivery O2 Flow Rate FiO2 10/18/17 22:04 81 16 131/58 (82) 93 Room Air 10/18/17 21:18 80 18 160/70 (100) 93 Room Air 10/18/17 20:04 76 18 173/76 (108) 93 Room Air 10/18/17 19:45 89 18 152/71 (98) 10/18/17 19:44 81 20 192/84 (120) 10/18/17 19:43 76 18 173/84 (113) 10/18/17 19:04 76 16 178/83 (114) 93 Room Air 10/18/17 17:04 79 16 96 Room Air 10/18/17 16:11 98.5 82 15 177/83 (114) 96 Physical Exam GENERAL: The [place]oth[place] female lying in bed sleeping SKIN: No rashes, ecchymoses or lesions. Cool and dry. HEAD: Atraumatic. Normocephalic. No temporal or scalp tenderness. EYES: Pupils equal round and reactive. Extraocular motions intact. No scleral icterus. No injection or drainage. ENT: Nose without bleeding, purulent drainage or septal hematoma. Throat without erythema, tonsillar hypertrophy or exudate. Uvula midline. Airway patent. NECK: Trachea midline. No JVD or lymphadenopathy. Supple, nontender, no meningeal signs. CARDIOVASCULAR: Regular rate and rhythm without murmurs, gallops, or rubs. RESPIRATORY: Clear to auscultation. Breath sounds equal bilaterally. No wheezes , rales, or rhonchi. GASTROINTESTINAL: Abdomen soft, non-tender, nondistended. No hepato-splenomegaly , or palpable masses. No guarding. MUSCULOSKELETAL: Extremities without clubbing, cyanosis, or edema. No joint tenderness, effusion, or edema noted. No calf tenderness. NEUROLOGICAL: Awake and alert. Cranial nerves II through XII intact. Motor and sensory grossly within normal limits. Five out of 5 muscle strength in all muscle groups. Normal speech. Laboratory Laboratory Tests Test 10/18/17 18:27 10/18/17 19:50 White Blood Count 12.3 Red Blood Count 4.38 Hemoglobin 12.9 Hematocrit 39.4 Mean Corpuscular Volume 90.0 Mean Corpuscular Hemoglobin 29.5 Mean Corpuscular Hemoglobin Concent 32.8 Red Cell Distribution Width 13.9 Platelet Count 160 Mean Platelet Volume 11.5 Neutrophils (%) (Auto) 79.5 Lymphocytes (%) (Auto) 14.6 Monocytes (%) (Auto) 4.8 Eosinophils (%) (Auto) 0.5 Basophils (%) (Auto) 0.6 Neutrophils # (Auto) 9.8 Lymphocytes # (Auto) 1.8 Monocytes # (Auto) 0.6 Eosinophils # (Auto) 0.1 Basophils # (Auto) 0.1 CBC Comment DIFF FINAL Differential Comment Prothrombin Time 10.0 Prothromb Time International Ratio 1.0 Activated Partial Thromboplast Time 29.1 Blood Urea Nitrogen 31 Creatinine 1.49 Random Glucose 130 Total Protein 7.6 Albumin 3.0 Calcium Level 9.4 Magnesium Level 1.7 Alkaline Phosphatase 122 Aspartate Amino Transf (AST/SGOT) 28 Alanine Aminotransferase (ALT/SGPT) 18 Total Bilirubin 0.4 Sodium Level 139 Potassium Level 4.0 Chloride Level 104 Carbon Dioxide Level 27.8 Anion Gap 7 Estimat Glomerular Filtration Rate 42 Total Creatine Kinase 159 Creatine Kinase MB 2.1 Troponin I LESS THAN 0.02 Urine Color YELLOW Urine Turbidity CLEAR Urine pH 5.5 Urine Specific Clements 1.013 Urine Protein 100 Urine Glucose (UA) NEG Urine Ketones NEG Urine Occult Blood NEG Urine Nitrite NEG Urine Bilirubin NEG Urine Urobilinogen LESS THAN 2.0 Urine Leukocyte Esterase NEG Urine RBC 1 Urine WBC 1 Urine Squamous Epithelial Cells 1 Urine Bacteria RARE Urine Hyaline Casts 3 Urine Mucus FEW Microscopic Urinalysis Comment CULT NOT INDICATED Result Diagram: 10/18/17182610/18/171826 Caprini VTE Risk Assessment Caprini VTE Risk Assessment: Mod/High Risk (score >= 2) Caprini Risk Assessment Model Point Value = 1 Point Value = 2 Point Value = 3 Point Value = 5 Age 41-60 Minor surgery BMI > 25 kg/m2 Swollen legs Varicose veins or History of unexplained or recurrent spontaneous Oral contraceptives or hormone replacement Sepsis (< 1 month) Serious lung disease, including pneumonia (< 1 month) Abnormal pulmonary function Acute myocardial infarction Congestive heart failure (< 1 month) History of inflammatory bowel disease Medical patient at bed rest Age 61-74 Arthroscopic surgery Major open surgery (> 45 min) Laparoscopic surgery (> 45 min) Malignancy Confined to bed (> 72 hours) Immobilizing plaster cast Central venous access Age >= 75 History of VTE Family history of VTE Factor V Leiden Prothrombin [id number] Lupus anticoagulant Anticardiolipin antibodies Elevated serum homocysteine Heparin-induced thrombocytopenia Other congenital or acquired thrombophilia Stroke (< 1 month) Elective arthroplasty Hip, pelvis, or leg fracture Acute spinal cord injury (< 1 month) Prophylaxis Regimen Total Risk Factor Score Risk Level Prophylaxis Regimen 0-1 Low Early ambulation 2 Moderate Order ONE of the following: *Sequential Compression Device (SCD) *Heparin 5000 units SQ BID 3-4 Higher Order ONE of the following medications: *Heparin 5000 units SQ TID *Enoxaparin/Lovenox 40 mg SQ daily (WT < 150 kg, CrCl > 30 mL/min) *Enoxaparin/Lovenox 30 mg SQ daily (WT < 150 kg, CrCl > 10-29 mL/min) *Enoxaparin/Lovenox 30 mg SQ BID (WT < 150 kg, CrCl > 30 mL/min) AND/OR *Sequential Compression Device (SCD) 5 or more Highest Order ONE of the following medications: *Heparin 5000 units SQ TID (Preferred with Epidurals) *Enoxaparin/Lovenox 40 mg SQ daily (WT < 150 kg, CrCl > 30 mL/min) *Enoxaparin/Lovenox 30 mg SQ daily (WT < 150 kg, CrCl > 10-29 mL/min) *Enoxaparin/Lovenox 30 mg SQ BID (WT < 150 kg, CrCl > 30 mL/min) AND *Sequential Compression Device (SCD) Assessment and Plan Assessment and Plan Assessment/plan: 1. Possible syncopal episode Syncopal workup pending including echo, carotid ultrasound, TSH and orthostatic vital signs 2. Insulin-dependent diabetes mellitus Per patient report she takes 85 units of long-acting insulin at night, current blood sugar 130 Holding home long-acting insulin to prevent hypoglycemia SSI Monitor blood glucose 3. AK I Creatinine 1.49, 1.20 on 10/10/17 NS at 70 cc/hour Monitor renal function Avoid nephrotoxic agents 4. Hypertension Patient takes blood pressure medication but she cannot remember the name of it Normotensive at this time Monitor BP and treat when necessary 5. Hyperlipidemia Continue home statin 6. Hypothyroidism Continue home Synthroid TSH pending FEN Heart healthy diet NS at 70 cc/hr Electrolytes: monitor and replete prn Heparin Case discussed with ER physician Susan Meade MD Oct 18, 2017 23:01
--- NOTE | 2017-10-18 23:33 | RADRPT ---
EXAM DATE/TIME: 10/18/2017 22:47 [facility] COMPARISON: No previous studies available for comparison. INDICATIONS : Syncope. MEDICAL HISTORY : Hypercholesterolemia. Gastroesophageal reflux disease. Hypertension. Glaucoma. Thyroid disease. Coron mika artery disease. Hiatal hernia. Diabetes. Neuropathy. SURGICAL HISTORY : Cholecystectomy. Hysterectomy. Laser eye surgery. Right cataract removal. ENCOUNTER: Initial ACUITY: 1 day PAIN SCORE: 0/10 LOCATION: Bilateral neck PEAK SYSTOLIC VELOCITIES (cm/sec): ICA/CCA RATIO: Right: 1.0 Left: 1.5 ICA: Right: 94 Left: 123 CCA: Right: 90 Left: 84 ECA: Right: 68 Left: 52 VERTEBRAL: Right: 43 antegrade Left: 57 antegrade Elevated flow velocities and ICA/CCA ratios have been found to correlate with increased degrees of vessel stenosis, calculated as percentage of diameter relative to a normal segment of distal ICA/CCA FINDINGS: RIGHT CAROTID: No significant stenosis is visualized. The waveforms are within normal limits. LEFT CAROTID: Mild luminal thickening in the common and internal carotid artery without evidence of shadowing plaqu e. Velocity waveforms are within normal limits. VERTEBRAL ARTERIES: Antegrade flow is seen in both vertebral arteries. MISCELLANEOUS: None. CONCLUSION: Mild plaque formation in the left carotid with hemodynamic profile on both sides characteristic of le ss than 50% stenosis. Dre Mims MD on October 18, 2017 at 23:30 Board Certified Radiologist. This report was verified electronically.
[2017-10-19] VITALS (11 sets, daily range): BP systolic 123–168; BP diastolic 57–84; PULSE 73–85; RESP 16–20; TEMP 97.4–98.6; O2SAT 93–98
[2017-10-19] MEDS: SODIUM CHLOR 0.9% 1000 ML INJ 1,000 ML IV SCH ×2 (00:02→13:41)
[2017-10-19] MEDS: LEVOTHYROXINE SODIUM 50 MCG TAB PO SCH (06:09)
[2017-10-19] MEDS: HEPARIN SODIUM - SQ 10,000 UNITS/ML VIAL SQ SCH ×3 (06:10→21:58)
[2017-10-19] MEDS: ASPIRIN 81 MG CHEW TAB CHEW SCH (08:48)
[2017-10-19] MEDS: PRAVASTATIN SOD 20 MG TAB PO SCH (08:48)
[2017-10-19] MEDS: INSULIN ASPART SUPPLEMENTAL SCALE SQ SCH ×4 (08:49→21:58)
[2017-10-19] MEDS: SODIUM CHLORIDE 0.9% FLUSH 10 ML FLUSH IV FLUSH SCH ×2 (08:49→21:00)
[2017-10-19 12:14] LABS: AUTOMATED NEUTROPHIL # 7.5 TH/MM3 (1.8-7.7); BASOPHIL % 0.4 % (0.0-2.0); EOSINOPHIL # 0.2 TH/MM3 (0-0.4); HEMATOCRIT 38.4 % (35.0-46.0); HEMO FLAGS DIFF FINAL; LYMPH % 11.6 % (9.0-44.0); LYMPHOCYTE # 1.1 TH/MM3 (1.0-4.8); MEAN CELL VOLUME 90.2 FL (80.0-100.0); MEAN CORPUSCULAR HEMOGLOBIN 30.2 PG (27.0-34.0); MEAN CORPUSCULAR HGB CONC 33.4 % (32.0-36.0); MONO % 5.5 % (0.0-8.0); NEUT % 80.5 % (16.0-70.0); PLATELET COUNT 160 TH/MM3 (150-450); RED BLOOD COUNT 4.26 MIL/MM3 (4.00-5.30); RED CELL DISTRIBUTION WIDTH 14.4 % (11.6-17.2); WHITE BLOOD COUNT 9.3 TH/MM3 (4.0-11.0)
--- NOTE | 2017-10-19 13:03 | HHI.PR ---
Subjective Remarks Patient denied chest pain headache or blurry vision, no dizziness or lightheaded She reported extreme fatigue Objective Vitals Vital Signs Date Time Temp Pulse Resp B/P (MAP) Pulse Ox O2 Delivery O2 Flow Rate FiO2 10/19/17 11:49 98.6 80 16 163/82 (109) 98 10/19/17 09:33 80 10/19/17 07:29 98.4 80 16 168/80 (109) 96 136/75 (95) 137/66 (89) 10/19/17 04:54 98.3 85 20 131/61 (84) 93 10/19/17 04:28 81 10/19/17 01:23 98.5 80 20 150/72 (98) 93 10/19/17 01:13 81 10/19/17 00:03 80 18 123/57 (79) 93 10/18/17 22:44 85 18 139/62 (87) 93 Room Air 10/18/17 22:04 81 16 131/58 (82) 93 Room Air 10/18/17 21:18 80 18 160/70 (100) 93 Room Air 10/18/17 20:04 76 18 173/76 (108) 93 Room Air 10/18/17 19:45 89 18 152/71 (98) 10/18/17 19:44 81 20 192/84 (120) 10/18/17 19:43 76 18 173/84 (113) 10/18/17 19:04 76 16 178/83 (114) 93 Room Air 10/18/17 17:04 79 16 96 Room Air 10/18/17 16:11 98.5 82 15 177/83 (114) 96 I/O 10/18/17 10/18/17 10/18/17 10/19/17 10/19/17 10/19/17 07:00 15:00 23:00 07:00 15:00 23:00 Intake Total 1000 ml Balance 1000 ml Intake IV Total 1000 ml Result Diagram: 10/19/17 1120 10/19/17 1120 Objective Remarks GENERAL: This is a frail elderly female, in no apparent distress. SKIN: No rashes, warm and dry HEAD: Atraumatic. Normocephalic. EYES: Pupils equal round and reactive. Extraocular motions intact. No scleral icterus. ENT: Nose without bleeding, or drainage, Airway patent. NECK: Trachea midline. Supple CARDIOVASCULAR: Regular rate and rhythm without murmurs, gallops, or rubs. RESPIRATORY: Fair air entry bilaterally. No wheezes, rales, or rhonchi. GASTROINTESTINAL: Abdomen soft, non-tender, nondistended. Positive bowel sounds MUSCULOSKELETAL: Extremities without clubbing, cyanosis, or edema. Pedal pulses appreciated NEUROLOGICAL: Awake and alert. Moves all extremity. Normal speech.no focal neurological deficit A/P Assessment and Plan Syncopal episodes with vomiting rule out seizure versus CVA versus ACS ? Questionable history of vascular catheterization and stenting when patient was in her early 20s Worsening anemia hemoglobin dropped from 12-9.8 Thrombocytopenia platelet 119 DEVON on CKD: Creatinine dropped from 1. 49-1.34 Hypertension with relatively positive orthostatic number Diabetes mellitus Hypothyroidism DVT prophylaxis Plan: Carotid ultrasound unremarkable I will also CT of the head, EEG, as well as a set of cardiac enzymes with EKG need to rule out CVA/seizure versus ACS TSH reviewed within normal limit Continue monitoring electrolytes BMP, avoid nephrotoxin Continue Synthroid and statin DVT prophylaxis with SCD, heparin however will need to rule out leading CT head Trevor Palacio MD Oct 19, 2017 13:03
[2017-10-19 15:03] LABS: CREATINE KINASE 99 U/L (26-192)
--- NOTE | 2017-10-19 15:30 | ECHRPT ---
Indication: syncope CONCLUSIONS Normal left ventricular size. Wall thickness is normal. The left ventricular systolic function is low normal with an estimated ejection fraction in the rang e of 50- 55%. Mild mitral valve regurgitation. There is mild tricuspid valve regurgitation. The estimated pulmonary arterial pressure is 38 mmHg. BP: / HR: Rhythm: MEASUREMENTS (Male / Female) Normal Values Technical Quality:Good 2D ECHO LV Diastolic Diameter PLAX 4.8 cm 4.2 - 5.9 / 3.9 - 5.3 cm LV Systolic Diameter PLAX 3.6 cm IVS Diastolic Thickness 1.0 cm 0.6 - 1.0 / 0.6 - 0.9 cm LVPW Diastolic Thickness 0.7 cm 0.6 - 1.0 / 0.6 - 0.9 cm LV Relative Wall Thickness 0.4 RV Internal Dim ED PLAX 2.1 cm LA Systolic Diameter LX 3.6 cm 3.0 - 4.0 / 2.7 - 3.8 cm M-MODE Aortic Root Diameter MM 3.1 cm AV Cusp Separation MM 1.8 cm DOPPLER MR Peak Velocity 521.0 cm/s MR Peak Gradient 108.6 mmHg Mitral E Point Velocity 82.4 cm/s Mitral A Point Velocity 110.0 cm/s Mitral E to A Ratio 0.7 TR Peak Velocity 285.0 cm/s TR Peak Gradient 32.5 mmHg Right Atrial Pressure 5.0 mmHg Pulmonary Artery Systolic Pressu 37.5 mmHg Right Ventricular Systolic Press 37.5 mmHg FINDINGS LEFT VENTRICLE Normal left ventricular size. Wall thickness is normal. The left ventricular systolic function is low normal with an estimated ejection fraction in the rang e of 50- 55%. RIGHT VENTRICLE Normal right ventricular size and systolic function. LEFT ATRIUM The left atrial size is normal. RIGHT ATRIUM The right atrial size is normal. ATRIAL SEPTUM Normal atrial septal thickness without atrial level shunting by limited color doppler interrogation. AORTA The aortic root and proximal ascending aorta are normal in size on limited imaging. MITRAL VALVE Mild mitral valve regurgitation. AORTIC VALVE Trileaflet aortic valve. No aortic valve stenosis or regurgitation. TRICUSPID VALVE There is mild tricuspid valve regurgitation. The estimated pulmonary arterial pressure is 37.5 mmHg. PULMONARY VALVE No pulmonary valve regurgitation or stenosis. VESSELS The inferior vena cava is normal in size. PERICARDIUM No pericardial effusion. Yelitza Nesbitt MD, FACC (Electronically Signed) Final Date:19 October 2017 15:30
--- NOTE | 2017-10-19 15:46 | EKG ---
Date Performed: 10/18/2017 Time Performed: 19:41:31 PTAGE: 72 years EKG: Sinus rhythm WITH MARKED SINUS ARRHYTHMIA NONSPECIFIC T-WAVE ABNORMALITY ABNORMAL ECG PREVIOUS TRACING : 03/20/2017 08.14 DOCTOR: Steve Roberts Interpretating Date/Time 10/19/2017 15:45:14
--- NOTE | 2017-10-19 18:14 | RADRPT ---
EXAM DATE/TIME: 10/19/2017 17:40 [facility] COMPARISON: No previous studies available for comparison. INDICATIONS : General weakness with syncope. RADIATION DOSE: 56.35 CTDIvol (mGy) MEDICAL HISTORY : Cardiovascular disease. Hypertension. Diabetes mellitus type 2. SURGICAL HISTORY : Hysterectomy. ENCOUNTER: Initial ACUITY: 4 - 6 days PAIN SCALE: 3/10 LOCATION: Bilateral cranial TECHNIQUE: Multiple contiguous axial images were obtained of the head. Using automated exposure control and adj ustment of the mA and/or kV according to patient size, radiation dose was kept as low as reasonably a chievable to obtain optimal diagnostic quality images. DICOM format image data is available electro nically for review and comparison. FINDINGS: CEREBRUM: The ventricles are normal for age. No evidence of midline shift, mass lesion, hemorrhage or acute in farction. No extra-axial fluid collections are seen. POSTERIOR FOSSA: The cerebellum and brainstem are intact. The 4th ventricle is midline. The cerebellopontine angle i s unremarkable. EXTRACRANIAL: The visualized portion of the orbits is intact. SKULL: The calvaria is intact. No evidence of skull fracture. CONCLUSION: 1. No acute findings. Mild white matter ischemic changes. Kelby Tristan MD on October 19, 2017 at 18:10 Board Certified Radiologist. This report was verified electronically.
--- NOTE | 2017-10-19 19:11 | MG ---
cc: MITZI MATTHEWS M.D. Lab No: Date: 10/19/2017 Age: Sex: F Race: REQUESTING PHYSICIAN Dr. Palacio INDICATION An EEG was obtained on this 72-year-old patient being evaluated for syncope versus seizure. DESCRIPTION This EEG is showing a mixture of alpha rhythms with beta activity. There are some theta rhythms. The left hemisphere rhythms are intermittently possibly slower than right but this is not a very consistent finding. There is some intermittent artifact. There are some sharp waves but no distinct paroxysmal or epileptiform discharges. The patient drowses and there is some theta activity. There is more widespread beta rhythms. Photic stimulation shows mild driving response bilaterally. Hyperventilation was not performed. INTERPRETATION Mildly abnormal EEG because of mild slowing, questionably more so on the left than right. No epileptiform features present. Mitzi Matthews MD OFC/KK /6:17 PM /6:59 PM
[2017-10-20] VITALS (7 sets, daily range): BP systolic 121–185; BP diastolic 71–88; PULSE 68–78; RESP 15–28; TEMP 97.8–98.4; O2SAT 95–98
[2017-10-20] MEDS: SODIUM CHLOR 0.9% 1000 ML INJ 1,000 ML IV SCH ×2 (03:36→16:05)
[2017-10-20] MEDS: LEVOTHYROXINE SODIUM 50 MCG TAB PO SCH (05:57)
[2017-10-20] MEDS: HEPARIN SODIUM - SQ 10,000 UNITS/ML VIAL SQ SCH ×3 (05:57→21:34)
[2017-10-20] MEDS: PRAVASTATIN SOD 20 MG TAB PO SCH (09:57)
[2017-10-20] MEDS: INSULIN ASPART SUPPLEMENTAL SCALE SQ SCH ×4 (09:57→21:34)
[2017-10-20] MEDS: ASPIRIN 81 MG CHEW TAB CHEW SCH (09:58)
[2017-10-20] MEDS: SODIUM CHLORIDE 0.9% FLUSH 10 ML FLUSH IV FLUSH SCH ×2 (09:58→21:00)
--- NOTE | 2017-10-20 13:48 | EKG ---
Date Performed: 10/19/2017 Time Performed: 13:34:34 PTAGE: 72 years EKG: Sinus rhythm WITH MARKED SINUS ARRHYTHMIA NONSPECIFIC T-WAVE ABNORMALITY ABNORMAL ECG NO PREVIOUS TRACING DOCTOR: Ashleigh Moulton Interpretating Date/Time 10/20/2017 13:47:16
--- NOTE | 2017-10-20 16:29 | HHI.PR ---
Subjective Remarks patient resting in bed, she reported feeling lightheaded when changing position , her blood pressure significantly positive orthostatic, Afebrile no chest pain or short of breath Objective Vitals Vital Signs Date Time Temp Pulse Resp B/P (MAP) Pulse Ox O2 Delivery O2 Flow Rate FiO2 10/20/17 16:26 98.4 77 16 185/88 (120) 96 10/20/17 08:18 97.8 70 16 178/81 (113) 95 146/76 (99) 155/74 (101) 10/20/17 04:37 97.8 74 15 166/84 (111) 97 10/20/17 00:14 98.2 72 18 121/71 (88) 95 10/19/17 19:54 97.4 75 18 159/72 (101) 98 140/84 (102) 149/67 (94) I/O 10/19/17 10/19/17 10/19/17 10/20/17 10/20/17 10/20/17 07:00 15:00 23:00 07:00 15:00 23:00 # Voids 3 Result Diagram: 10/19/17 1120 10/19/17 1120 Objective Remarks GENERAL: This is a frail elderly female, in no apparent distress. SKIN: No rashes, warm and dry HEAD: Atraumatic. Normocephalic. EYES: Pupils equal round and reactive. Extraocular motions intact. No scleral icterus. ENT: Nose without bleeding, or drainage, Airway patent. NECK: Trachea midline. Supple CARDIOVASCULAR: Regular rate and rhythm without murmurs, gallops, or rubs. RESPIRATORY: Fair air entry bilaterally. No wheezes, rales, or rhonchi. GASTROINTESTINAL: Abdomen soft, non-tender, nondistended. Positive bowel sounds MUSCULOSKELETAL: Extremities without clubbing, cyanosis, or edema. Pedal pulses appreciated NEUROLOGICAL: Awake and alert. Moves all extremity. Normal speech.no focal neurological deficit A/P Assessment and Plan Syncopal episodes with vomiting rule out seizure versus CVA versus ACS ? Questionable history of vascular catheterization and stenting when patient was in her early 20s Worsening anemia hemoglobin dropped from 12-9.8 Thrombocytopenia platelet 119 DEVON on CKD: Creatinine dropped from 1. 49-1.34 Uncontrolled Hypertension with with orthostatic changes Diabetes mellitus Hypothyroidism DVT prophylaxis Plan: Carotid ultrasound unremarkable I personally reviewed CT head unremarkable, EEG showed slowing wave especially on left side but no epileptic activity, cardiac enzymes with EKG unremarkable, consulted neurology 2-D echo showed EF 50-55% with pulmonary arterial pressure 38 mmHg Will check cortisol level in a.m., consider starting Florinef I will increase iv fluid I will add lisinopril 5 mg twice a day with Vasotec as needed for a blood pressure of 182 systolic today TSH reviewed within normal limit Continue monitoring electrolytes BMP, avoid nephrotoxin Continue Synthroid and statin DVT prophylaxis with SCD, heparin however will need to rule out leading CT head Discharge Planning Hopefully in a.m. if symptoms improved and cleared by neurology Trevor Palacio MD Oct 20, 2017 16:29
[2017-10-20] MEDS ORDERED: ENALAPRILAT 1.25 MG/ML VIAL IV PUSH PRN (16:45)
[2017-10-20] MEDS: LISINOPRIL 5 MG TAB PO SCH (21:34)
--- NOTE | 2017-10-20 21:40 | MB ---
cc: NAS ABREU MD DATE OF CONSULTATION 10/20/17 REASON FOR CONSULTATION Syncope versus seizures. HISTORY OF PRESENT ILLNESS Ms. Mon is a 72-year-old -[place] female with past medical history significant for hypertension, hyperlipidemia, insulin dependent diabetes mellitus who presented to the emergency room at [facility] with history of generalized weakness and fatigue. She states that "I felt bad" where she felt as if her sugar went down, mildly lightheaded. She denies convulsions, loss of consciousness, loss of bowel or bladder control, tongue biting. The patient denies any history of seizures in the past or family history of seizures, stroke or TIA. No history of recent trauma. REVIEW OF SYSTEMS A 12-point review of systems is negative except for what is stated in HPI. PAST MEDICAL HISTORY 1. Hypertension, 2. Insulin dependent diabetes mellitus, 3. Hyperlipidemia, 4. Hypothyroidism. PAST SURGICAL HISTORY Hysterectomy. MEDICATIONS 1. Simvastatin 2. Vitamin D3 3. Insulin. 5. Synthroid. 6. Aspirin 81 mg. ALLERGIES DYE FAMILY HISTORY Mother with diabetes. SOCIAL HISTORY Denies alcohol, tobacco or illicit drugs. PHYSICAL EXAMINATION GENERAL: Awake, alert, good historian, pleasant not in acute distress. HEENT: Atraumatic, normocephalic. Intact hearing and intact vision. NECK: Supple. No signs of meningeal irritation. RESPIRATORY: Clear to auscultation. No wheezes. CARDIOVASCULAR: Regular rate and rhythm. GASTROINTESTINAL: Soft, abdomen not tender. MUSCULOSKELETAL: Without clubbing, cyanosis, or edema. NEUROLOGIC: Awake, alert, oriented to time, person and place. No dysarthria. No dysphasia. Cranial nerves II-XII are grossly intact. Motor strength 5/5 bilateral symmetrical. No abnormal movement, normal tone. Sensation is intact throughout but for glove and stocking solution decreased light sensation. Reflexes 2+ bilateral symmetrical, bilateral suppressed ankle reflexes. Plantars are bilaterally downgoing. PSYCHIATRIC: Pleasant and cooperative. Normal mood. No hallucinations. LABORATORY DATA White blood cells 9.3, hemoglobin 12.9, platelet was 60,000.Sodium 140, potassium four, anion gap four, BUN 23, creatinine 1.34, random glucose 296, alkaline phosphatase 122, normal AST and ALT, TSH 0.453, INR one. IMAGING STUDIES - Head CT scan without contrast reported with no acute findings but with white matter ischemic changes. Carotid ultrasounds - mild plaque formation in the left carotid with hemodynamic profile on both sides characteristic of less than 50% stenosis. DIAGNOSTIC IMPRESSION 1. Generalized weakness 2. Presyncope 3. No clinical evidence of seizure disorder and the electroencephalographic picture is unremarkable for epileptiform activity. ASSESSMENT/PLAN 1. There is no indication for anti-seizure medication at this time. 2. Check orthostatic vitals. 3. Continue supportive medical therapy 4. No need for further neurologic workup. 5. Sign off the case, please call for question Thank you for the opportunity to participate in the care of your patient. MD ROSEY Nova/ /8:30 PM /9:20 PM MTDLudivina
[2017-10-21 00:38] VITALS: BP 159/77; PULSE 75; RESP 24; TEMP 98.1; O2SAT 98
[2017-10-21] MEDS: SODIUM CHLOR 0.9% 1000 ML INJ 1,000 ML IV SCH (02:05)
[2017-10-21 03:49] VITALS: PULSE 74
[2017-10-21] MEDS: HEPARIN SODIUM - SQ 10,000 UNITS/ML VIAL SQ SCH (04:58)
[2017-10-21] MEDS: LEVOTHYROXINE SODIUM 50 MCG TAB PO SCH ×2 (04:58→09:06)
[2017-10-21 05:45] VITALS: BP 162/88; PULSE 76; RESP 22; TEMP 97.6; O2SAT 97
[2017-10-21 07:53] VITALS: PULSE 75
[2017-10-21] MEDS: SODIUM CHLORIDE 0.9% FLUSH 10 ML FLUSH IV FLUSH SCH (09:00)
[2017-10-21] MEDS: ASPIRIN 81 MG CHEW TAB CHEW SCH (09:05)
[2017-10-21] MEDS: LISINOPRIL 5 MG TAB PO SCH (09:05)
[2017-10-21] MEDS: PRAVASTATIN SOD 20 MG TAB PO SCH (09:06)
[2017-10-21] MEDS: INSULIN ASPART SUPPLEMENTAL SCALE SQ SCH (09:07)
[2017-10-21] MEDS ORDERED: LISI-519 PO (10:19)
--- NOTE | 2017-10-21 12:08 | HHI.DS ---
Discharge Summary Admission Date Oct 18, 2017 at 21:15 Discharge Date: Oct 18, 2017 Admitting Diagnosis Weakness/Orthostatic (1) Syncope ICD Code: R55 - Syncope and collapse (2) Hypertension ICD Code: I10 - Essential (primary) hypertension Status: Acute (3) Obesity ICD Code: E66.9 - Obesity, unspecified Status: Acute (4) Type 2 diabetes mellitus ICD Code: E11.9 - Type 2 diabetes mellitus without complications Status: Acute (5) Atypical chest pain ICD Code: R07.89 - Other chest pain Status: Acute Procedures see below Brief History - From Admission 72-year-old female with a past medical history significant for hypertension, hyperlipidemia and insulin-dependent diabetes mellitus presents to the emergency department with a history of fatigue and generalized weakness. The patient reports that she lost consciousness after having the phone with her sister. She awoke to find emesis on her chest but has no memory of vomiting. She is sleeping at the time of our interview and obtaining information is incredibly difficult. She denies chest pain, shortness of breath. Denies any other associated symptoms. Creatinine 1.49, was 1.2 on 10/10/17. CBC/BMP: 10/19/17 1120 10/19/17 1120 Significant Findings Laboratory Tests Test 10/18/17 18:27 10/18/17 19:50 10/19/17 04:30 10/19/17 11:20 White Blood Count 12.3 TH/MM3 (4.0-11.0) Mean Platelet Volume 11.5 FL (7.0-11.0) Neutrophils (%) (Auto) 79.5 % (16.0-70.0) 80.5 % (16.0-70.0) Neutrophils # (Auto) 9.8 TH/MM3 (1.8-7.7) Blood Urea Nitrogen 31 MG/DL (7-18) 23 MG/DL (7-18) Creatinine 1.49 MG/DL (0.50-1.00) 1.34 MG/DL (0.50-1.00) Random Glucose 130 MG/DL (74-106) 296 MG/DL (74-106) Albumin 3.0 GM/DL (3.4-5.0) Alkaline Phosphatase 122 U/L (45-117) Estimat Glomerular Filtration Rate 42 ML/MIN (>89) 47 ML/MIN (>89) Troponin I LESS THAN 0.02 NG/ML Urine Protein 100 mg/dL (NEG-TRACE) Urine Bacteria RARE /hpf (NONE) Urine Mucus FEW /lpf (OCC) Anion Gap 4 MEQ/L (5-15) Test 10/19/17 13:50 Troponin I LESS THAN 0.02 NG/ML PE at Discharge GENERAL: This is a frail elderly female, in no apparent distress. SKIN: No rashes, warm and dry HEAD: Atraumatic. Normocephalic. EYES: Pupils equal round and reactive. Extraocular motions intact. No scleral icterus. ENT: Nose without bleeding, or drainage, Airway patent. NECK: Trachea midline. Supple CARDIOVASCULAR: Regular rate and rhythm without murmurs, gallops, or rubs. RESPIRATORY: Fair air entry bilaterally. No wheezes, rales, or rhonchi. GASTROINTESTINAL: Abdomen soft, non-tender, nondistended. Positive bowel sounds MUSCULOSKELETAL: Extremities without clubbing, cyanosis, or edema. Pedal pulses appreciated NEUROLOGICAL: Awake and alert. Moves all extremity. Normal speech.no focal neurological deficit Hospital Course 72 years old female admitted with Syncopal episodes with vomiting rule out seizure versus CVA versus ACS, ? Questionable history of vascular catheterization and stenting when patient was in her early 20s Worsening anemia hemoglobin dropped from 12-9.8, Thrombocytopenia platelet 119, DEVON on CKD: Creatinine dropped from 1. 49-1.34 Uncontrolled Hypertension with with orthostatic changes,Diabetes mellitus, lHypothyroidism Patient started with syncope workup, Carotid ultrasound unremarkable CT head unremarkable, EEG showed slowing wave especially on left side but no epileptic activity, cardiac enzymes with EKG unremarkable, consulted neurology 2-D echo showed EF 50-55% with pulmonary arterial pressure 38 mmHg Will check cortisol level in a.m., consider starting Florinef Patient placed on iv fluid and added lisinopril 5 mg twice a day with Vasotec as needed, TSH reviewed within normal limit PT OT, patient becomes stable and discharged to follow up as an outpatient [id number] encounter performed with the patient on discharge day, as well as physical exam, summary of hospitalization course and postdischarge plan has been D/W the patient. D/W nurse D/W medical case manager. Discharge medications reviewed and printed and signed, post discharge follow up visit with PCP and other specialist as well as Brief hospital course and discharge summary has been placed. Pt Condition on Discharge: Fair Discharge Disposition: Discharge Home Discharge Time: > 30 minutes Discharge Instructions DIET: Follow Instructions for: Heart Healthy Diet, Diabetic Diet Activities you can perform: Weight Bearing as Anthony Other Activity Instructions: Fall precaution, no swimming driving or operating heavy machinery New Medications: Lisinopril (Lisinopril) 5 Mg Tab 5 MG PO Q12HR for htn, #30 TAB Continued Medications: Aspirin (Aspirin) 81 Mg Chew 81 MG CHEW DAILY, TAB 0 Refills Cholecalciferol (Vitamin D-3) 1,000 Unit Cap 1 CAP PO DAILY Insulin Lispro (Human) Inj (Humalog Inj) 1,000 Unit/10 Ml Vial 2-12 UNITS SQ ACHS PRN for sliding scale, #1 VIAL 0 Refills Max dose at bedtime:( )units; sugars < 70,(0)units; sugars 150-199,(2)units; sugars 200-249,(4)units; sugars 250-299,(7)units; sugars 300-349,(10)units; sugars more than 349,(12)units. Levothyroxine (Synthroid) 50 Mcg Tab 50 MCG PO DAILY for Thyroid, #30 TAB 0 Refills Simvastatin (Simvastatin) 10 Mg Tab 10 MG PO DAILY for Cholesterol Management, #30 TAB 0 Refills Trevor Palacio MD Oct 21, 2017 12:08
== END 2017-10-21 13:24 | disposition home or self-care (01) ==
LOC: NEPC 16:10 → NEDA 21:15 → NEPFCDU 10-19 00:28
PROVIDERS: ADMIT Hospitalist; ATTEND Hospitalist
DX: R53.1 Weakness (principal); R55 Syncope and collapse; I25.10 Atherosclerotic heart disease of native coronary artery without angina pectoris; I12.9 Hypertensive chronic kidney disease with stage 1 through stage 4 chronic kidney disease, or unspecified chronic kidney disease; E11.22 Type 2 diabetes mellitus with diabetic chronic kidney disease; N18.3 Chronic kidney disease, stage 3 (moderate); E11.40 Type 2 diabetes mellitus with diabetic neuropathy, unspecified; E03.9 Hypothyroidism, unspecified; R11.10 Vomiting, unspecified; I49.9 Cardiac arrhythmia, unspecified; R94.31 Abnormal electrocardiogram [ECG] [EKG]; N17.9 Acute kidney failure, unspecified; R53.83 Other fatigue; D64.9 Anemia, unspecified; D69.6 Thrombocytopenia, unspecified; R42 Dizziness and giddiness; R25.2 Cramp and spasm; E78.00 Pure hypercholesterolemia, unspecified; K21.9 Gastro-esophageal reflux disease without esophagitis; H40.9 Unspecified glaucoma; E66.9 Obesity, unspecified; Z79.899 Other long term (current) drug therapy; Z79.82 Long term (current) use of aspirin; Z79.4 Long term (current) use of insulin; Z90.710 Acquired absence of both cervix and uterus
CPT/HCPCS: 70450; 71010; 80048; 80053; 81001; 82550; 82552; 82948; 83735; 84443; 84484; 85025; 85610; 85730; 93005; 93306; 93880; 95819; 96361; 96372; 96374; 96375; 97163; 99285; G0378; G8987; G8988; J1644; J1815; J2405; J7030

== ENCOUNTER → 2017-12-15 | Outpatient (CLI) | payer MEDICARE ==
[~2017-12-15] MED LIST changes: +D31000CA3 PO; -IRON18TA2 PO; -LANTUS2P SQ; +LISI-519 PO; +SIMV10TA PO; +b/p med PO
[2017-12-15 09:19] LABS: HEMOGLOBIN 12.3 GM/DL (11.6-15.3); MEAN CELL VOLUME 89.4 FL (80.0-100.0); MEAN CORPUSCULAR HGB CONC 32.5 % (32.0-36.0); MEAN PLATELET VOLUME 10.4 FL (7.0-11.0); PLATELET COUNT 195 TH/MM3 (150-450); RED BLOOD COUNT 4.25 MIL/MM3 (4.00-5.30); RED CELL DISTRIBUTION WIDTH 14.3 % (11.6-17.2); WHITE BLOOD COUNT 5.9 TH/MM3 (4.0-11.0)
[2017-12-15 09:22] LABS: BILIRUBIN, URINE NEG (NEG); BLOOD, URINE NEG (NEG); GLUCOSE,URINE NEG (NEG); KETONE, URINE NEG (NEG); MUCUS URINE FEW /lpf (OCC); NITRITE,URINE NEG (NEG); SQUAMOUS EPITHELIAL CELL URINE <1 /hpf (0-5); URINE COLOR LIGHT-YELLOW (YELLW/STRAW); URINE LEUKOCYTE ESTERASE NEG (NEG)
[2017-12-15 09:31] LABS: BICARBONATE 31.1 MEQ/L (21.0-32.0); CALCIUM 9.4 MG/DL (8.5-10.1); CREATININE 1.24 MG/DL (0.50-1.00); PHOSPHORUS 3.7 MG/DL (2.5-4.9)
== END ==
LOC: CLAB 08:28
PROVIDERS: ATTEND Physician Assistant
DX: N25.81 Secondary hyperparathyroidism of renal origin (principal); N18.3 Chronic kidney disease, stage 3 (moderate); E55.9 Vitamin D deficiency, unspecified
CPT/HCPCS: 36415; 80069; 81001; 82306; 82570; 83970; 84156; 85027

== ENCOUNTER 2018-02-22 14:13 | Emergency (ER) | payer MEDICARE ==
[~2018-02-22] VITALS: Ht 165.1 cm; Wt 90.0 kg
[~2018-02-22 14:13] MED LIST changes: -ASPI-516 CHEW; +ASPI-516 PO
[2018-02-22 14:25] VITALS: BP 131/89; PULSE 78; RESP 17; TEMP 97.9; O2SAT 96
[2018-02-22] MEDS ORDERED: SODIUM CHLORIDE 0.9% FLUSH 10 ML FLUSH IVF PRN (15:00)
--- NOTE | 2018-02-22 15:04 | PD ---
HPI Chief Complaint: Skin Problem Time Seen by Provider: 14:41 Travel History International Travel<30 days: No Contact w/Intl Traveler<30days: No Traveled to known affect area: No History of Present Illness HPI 72-year-old female presents to the emergency department for evaluation of swelling to her posterior neck that she states she noticed last night. She states that she also has an unstable gait that started last night as well. She denies any fevers or chills. She states that she has a slight ache to her left shoulder which she feels is a muscle strain. No shortness of breath. Patient denies any abdominal pain. No vomiting. She states that she has not had swelling to her posterior neck before. Patient is a poor historian. She is unsure of her medications or her medical history. She denies any exacerbating or alleviating factors. Moderate severity. PFSH Past Medical History Heart Rhythm Problems: No Cancer: No Cardiac Catheterization: Yes (thinks possibly) Cardiovascular Problems: Yes High Cholesterol: Yes Chest Pain: Yes Congestive Heart Failure: No Coronary Artery Disease: Yes Diabetes: Yes Patient Takes Glucophage: No Diminished Hearing: No GERD: Yes Glaucoma: Yes Genitourinary: No Hepatitis: No Hiatal Hernia: Yes Heparin Induced Thrombocytopen: No Hypertension: Yes Musculoskeletal: No Neurologic: Yes (NEUROPATHY) Psychiatric: No Reproductive: No Respiratory: No Thyroid Disease: Yes Influenza Vaccination: No Menopausal: Yes Past Surgical History Abdominal Surgery: Yes (CHOLECYSTECTOMY) Cholecystectomy: Yes Coronary Artery Bypass Graft: No Coronary Stent: Yes (says yes "back in the 70's") Eye Surgery: Yes (LASER SURGERY BOTH EYES,CATARACT SX RIGHT EYE) Gynecologic Surgery: Yes (HYSTERECTOMY) Hysterectomy: Yes Pacemaker: No Other Surgery: Yes Social History Alcohol Use: No Tobacco Use: No Substance Use: No Allergies-Medications (Allergen,Severity, Reaction): Uncoded Allergies: DYE (Allergy, Unknown, DYE GIVEN TO HER BY DR FRAZIER-PT WILL FIND OUT NAME OF DYE , 10/18/17) 08-19-09 "iv dye", "throat swelling, itching" Reported Meds & Prescriptions Reported Meds & Active Scripts Active Reported Pravastatin 40 Mg Tab 40 Mg PO DAILY Chlorthalidone 25 Mg Tab 25 Mg PO EVERY OTHER DAY Lisinopril 10 Mg Tab 10 Mg PO DAILY Levothyroxine (Levothyroxine Sodium) 25 Mcg Tab 25 Mcg PO DAILY Vitamin D-3 (Cholecalciferol) 1,000 Unit Cap 1,000 Units PO DAILY Humalog Inj (Insulin Human Lispro) 1,000 Unit/10 Ml Vial 15 Units SQ TIDAC Aspirin 81 Mg Chew 81 Mg PO DAILY Review of Systems Except as stated in HPI: all other systems reviewed are Neg Physical Exam Narrative GENERAL: Well-nourished, well-developed female patient, afebrile. SKIN: Focused skin assessment warm/dry. Patient has swelling posterior neck without fluctuance or induration, feels like fatty tissue. No erythema. HEAD: Normocephalic. Atraumatic. ENT: Mucosa pink and moist. No erythema or exudates. No uvular edema. No uvular , palatal, or tonsillar deviation. Airway patent. Nasal turbinates appear normal without nasal blood, purulent drainage or septal hematoma. Bilateral tympanic membranes are clear without erythema or perforation. EYES: No scleral icterus. No injection or drainage. NECK: Supple, trachea midline. No JVD or lymphadenopathy. CARDIOVASCULAR: Regular rate and rhythm without murmurs, gallops, or rubs. RESPIRATORY: Breath sounds equal bilaterally. No accessory muscle use. Lungs sounds are clear to auscultation. GASTROINTESTINAL: Abdomen soft, non-tender, nondistended. MUSCULOSKELETAL: No cyanosis, or edema. BACK: Nontender without obvious deformity. No CVA tenderness. Data Data Last Documented VS Vital Signs Date Time Temp Pulse Resp B/P (MAP) Pulse Ox O2 Delivery O2 Flow Rate FiO2 02/22/18 17:32 71 14 213/96 (135) 79 16 213/99 (137) 74 15 191/88 (122) 02/22/18 14:25 97.9 96 Orders Orders Electrocardiogram (02/22/18 14:53) Basic Metabolic Panel (Bmp) (02/22/18 14:53) Ckmb (Isoenzyme) Profile (02/22/18 14:53) Complete Blood Count With Diff (02/22/18 14:53) Magnesium (Mg) (02/22/18 14:53) Prothrombin Time / Inr (Pt) (02/22/18 14:53) Act Partial Throm Time (Ptt) (02/22/18 14:53) Troponin I (02/22/18 14:53) Ecg Monitoring (02/22/18 14:53) Bilateral Bp Monitoring (02/22/18 14:53) Iv Access Insert/Monitor (02/22/18 14:53) Oximetry (02/22/18 14:53) Oxygen Administration (02/22/18 14:53) Sodium Chloride 0.9% Flush (Ns Flush) (02/22/18 15:00) Ct Soft Tiss Neck W/O Iv Cont (02/22/18 ) Orthostatic Vital Signs (02/22/18 14:53) Dextrose 50% In Wendy (Syr) Inj (D50w (Syr (02/22/18 17:15) Sodium Chlor 0.9% 1000 Ml Inj (Ns 1000 M (02/22/18 18:00) Sodium Chlorid 0.9% 500 Ml Inj (Ns 500 M (02/22/18 18:00) CKMB (02/22/18 17:05) CKMB% (02/22/18 17:05) Blood Glucose (02/22/18 18:37) Labs Laboratory Tests Test 02/22/18 15:06 02/22/18 17:05 White Blood Count 6.9 TH/MM3 Red Blood Count 4.36 MIL/MM3 Hemoglobin 12.5 GM/DL Hematocrit 38.2 % Mean Corpuscular Volume 87.6 FL Mean Corpuscular Hemoglobin 28.7 PG Mean Corpuscular Hemoglobin Concent 32.8 % Red Cell Distribution Width 13.9 % Platelet Count 200 TH/MM3 Mean Platelet Volume 10.6 FL Neutrophils (%) (Auto) 60.7 % Lymphocytes (%) (Auto) 28.0 % Monocytes (%) (Auto) 7.9 % Eosinophils (%) (Auto) 2.6 % Basophils (%) (Auto) 0.8 % Neutrophils # (Auto) 4.2 TH/MM3 Lymphocytes # (Auto) 1.9 TH/MM3 Monocytes # (Auto) 0.5 TH/MM3 Eosinophils # (Auto) 0.2 TH/MM3 Basophils # (Auto) 0.1 TH/MM3 CBC Comment DIFF FINAL Differential Comment Prothrombin Time 10.1 SEC Prothromb Time International Ratio 1.0 RATIO Activated Partial Thromboplast Time 24.8 SEC Blood Urea Nitrogen 25 MG/DL Creatinine 1.22 MG/DL Random Glucose 53 MG/DL Calcium Level 8.8 MG/DL Magnesium Level 2.2 MG/DL Sodium Level 145 MEQ/L Potassium Level 4.0 MEQ/L Chloride Level 110 MEQ/L Carbon Dioxide Level 31.2 MEQ/L Anion Gap 4 MEQ/L Estimat Glomerular Filtration Rate 53 ML/MIN Total Creatine Kinase 138 U/L Creatine Kinase MB 2.0 NG/ML Troponin I LESS THAN 0.02 NG/ML MDM Medical Decision Making Medical Screen Exam Complete: Yes Emergency Medical Condition: Yes Medical Record Reviewed: Yes Interpretation(s) Last Impressions Neck CT 02/22/18 0000 Signed Impressions: Service Date/Time: Thursday, February 22, 2018 15:31 - CONCLUSION: Negative. I do not see discrete mass. Lack of intravenous contrast makes detection of subtle are not is difficult. Followup is suggested if the patient remains symptomatic. Dileep Webb MD FACR Differential Diagnosis abscess vs. cellulitis vs. lipoma vs. electrolyte abnormality vs. orthostatic hypotension Narrative Course 72-year-old female presents to the emergency department for evaluation of swelling to her posterior neck as feeling as if her gait is unstable. No falls or syncope. IV access obtained. EKG, CBC, BMP, CK, troponin, magnesium, PTT, PT/INR are ordered and pending. Orthostatic vital signs are ordered and pending. CT soft tissue neck without contrast due to allergy to dye is ordered and pending. EKG shows sinus rhythm, heart rate 70, no acute ST changes. CBC is unremarkable. BMP shows BUN 25, creatinine 1.22, hypoglycemia 53. Magnesium is 2.2. CK is 138. Troponin is less than 0.02. Coags are unremarkable. CT soft tissue neck is negative. No acute abnormality is seen. Patient is given or issues and abiola crackers for her hypoglycemia. She states that she does not like abiola crackers and will not eat them. I offered to give her steroids, which she also declines. I then ordered dextrose IV, which the patient also declined. She finally agreed to some saltine crackers and peanut butter. Patient was ordered normal saline for slight orthostatic hypotension. However, she originally declined this. She did finally agree to it. She is ambulatory with a steady gait. She has no complaints at this time. Patient is instructed to follow up with her primary care physician. Recheck blood sugar is 93. Diagnosis Primary Impression: Neck complaint Additional Impression: Hypoglycemia Referrals: Primary Care Physician call for appointment Patient Instructions: General Instructions, Hypoglycemia in a Person with Diabetes (ED) Additional Instructions: Monitor blood glucose. Follow-up with your primary care physician. Return to the emergency department for any acute worsening of symptoms. Med/Other Pt SpecificInfo: No Change to Meds Disposition: 01 DISCHARGE HOME Condition: Stable Jody Ortiz Feb 22, 2018 15:04
[2018-02-22 15:48] LABS: AUTOMATED NEUTROPHIL # 4.2 TH/MM3 (1.8-7.7); BASOPHIL # 0.1 TH/MM3 (0-0.2); BASOPHIL % 0.8 % (0.0-2.0); EOSINOPHIL # 0.2 TH/MM3 (0-0.4); EOSINOPHIL % 2.6 % (0.0-4.0); HEMATOCRIT 38.2 % (35.0-46.0); HEMOGLOBIN 12.5 GM/DL (11.6-15.3); LYMPHOCYTE # 1.9 TH/MM3 (1.0-4.8); MEAN CELL VOLUME 87.6 FL (80.0-100.0); MEAN CORPUSCULAR HEMOGLOBIN 28.7 PG (27.0-34.0); MEAN CORPUSCULAR HGB CONC 32.8 % (32.0-36.0); MEAN PLATELET VOLUME 10.6 FL (7.0-11.0); MONO % 7.9 % (0.0-8.0); MONOCYTE # 0.5 TH/MM3 (0-0.9); NEUT % 60.7 % (16.0-70.0); PLATELET COUNT 200 TH/MM3 (150-450); RED BLOOD COUNT 4.36 MIL/MM3 (4.00-5.30); RED CELL DISTRIBUTION WIDTH 13.9 % (11.6-17.2); WHITE BLOOD COUNT 6.9 TH/MM3 (4.0-11.0)
--- NOTE | 2018-02-22 15:55 | RADRPT ---
EXAM DATE/TIME: 02/22/2018 15:31 [facility] COMPARISON: No previous studies available for comparison. INDICATIONS : Patient state firmness of posterior neck roll RADIATION DOSE: 16.33 CTDIvol (mGy) MEDICAL HISTORY : Hypertension. Diabetes mellitus type 1. Cardiovascular disease SURGICAL HISTORY : Hysterectomy. ENCOUNTER: Initial ACUITY: 1 day PAIN SCORE: 0/10 LOCATION: posterior neck TECHNIQUE: Volumetric scanning of the neck was performed. Using automated exposure control and adjustment of th e mA and/or kV according to patient size, radiation dose was kept as low as reasonably achievable to obtain optimal diagnostic quality images. DICOM format image data is available electronically for re view and comparison. FINDINGS: NASOPHARYNX: The nasopharyngeal airway has a normal configuration. No mucosal thickening or mass is seen. OROPHARYNX: The intrinsic muscles of the tongue are symmetric. The tonsillar pillars are intact. The prevertebr al soft tissues are not thickened. LARYNX: The supraglottic, glottic, and infraglottic structures are intact. PARAPHARYNGEAL: The parapharyngeal space is intact. SALIVARY GLANDS: The parotid and submandibular glands are intact. LYMPH NODES: No enlarged or necrotic-appearing nodes. THYROID: Homogeneous enhancement without evidence of nodule. BONES: Unremarkable. CONCLUSION: Negative. I do not see discrete mass. Lack of intravenous contrast makes detection of subtle are not is difficult. Followup is suggested if the patient remains symptomatic. Dileep Webb MD FACR on February 22, 2018 at 15:50 Board Certified Radiologist. This report was verified electronically.
[2018-02-22 16:06] LABS: PROTHROMBIN TIME - PATIENT 10.1 SEC (9.8-11.6)
[2018-02-22] MEDS ORDERED: CHLO25TA2 PO (16:14)
[2018-02-22] MEDS ORDERED: PRAV40TA2 PO (16:14)
[2018-02-22] MEDS ORDERED: LISI10TA3 PO (16:14)
[2018-02-22] MEDS ORDERED: LEVO25TA4 PO (16:14)
[2018-02-22] MEDS ORDERED: DEXTROSE 50% IN WATER 50 ML SYRINGE IV PUSH ONE (17:15)
[2018-02-22 17:32] VITALS: BP_SYST 191; BP_SYST 213; BP_DIAS 88; BP_DIAS 96; BP_DIAS 99; RESP 14; RESP 15; RESP 16
[2018-02-22] MEDS ORDERED: SODIUM CHLOR 0.9% 1000 ML INJ 1,000 ML IV ONE (18:00)
[2018-02-22] MEDS ORDERED: SODIUM CHLORID 0.9% 500 ML INJ 500 ML IV ONE (18:00)
[2018-02-22 18:14] LABS: BICARBONATE 31.2 MEQ/L (21.0-32.0); BLOOD UREA NITROGEN 25 MG/DL (7-18); CALCIUM 8.8 MG/DL (8.5-10.1); CHLORIDE 110 MEQ/L (98-107); CREATININE 1.22 MG/DL (0.50-1.00); GLOMERULAR FILTRATION RATE 53 ML/MIN (>89); GLUCOSE,RANDOM 53 MG/DL (74-106); MAGNESIUM 2.2 MG/DL (1.5-2.5); SODIUM (NA) 145 MEQ/L (136-145); TROPONIN I LESS THAN 0.02 NG/ML (0.02-0.05)
--- NOTE | 2018-02-23 13:37 | EKG ---
Date Performed: 02/22/2018 Time Performed: 15:51:28 PTAGE: 72 years EKG: Sinus rhythm WITH MARKED SINUS ARRHYTHMIA NONSPECIFIC T-WAVE ABNORMALITY ABNORMAL ECG Since the PREVIOUS TRACING , no significant change noted PREVIOUS TRACIN10/19/2017 13.34 DOCTOR: Brayan Glass Interpretating Date/Time 02/23/2018 13:34:53
== END 2018-02-22 19:22 | disposition home or self-care (01) ==
LOC: NEPC 14:13
DX: R22.1 Localized swelling, mass and lump, neck (principal); E11.649 Type 2 diabetes mellitus with hypoglycemia without coma; E07.9 Disorder of thyroid, unspecified; E78.00 Pure hypercholesterolemia, unspecified; I10 Essential (primary) hypertension; I25.10 Atherosclerotic heart disease of native coronary artery without angina pectoris; R94.31 Abnormal electrocardiogram [ECG] [EKG]; Z79.4 Long term (current) use of insulin; Z79.82 Long term (current) use of aspirin
CPT/HCPCS: 70490; 80048; 82550; 82552; 83735; 84484; 85025; 85610; 85730; 93005; 96360; 99285; J7040

== ENCOUNTER → 2018-03-30 | Outpatient (CLI) | payer MEDICARE ==
[~2018-03-30] MED LIST changes: +CHLO25TA2 PO; -LEVO.05 PO; +LEVO25TA4 PO; -LISI-519 PO; +LISI10TA3 PO; +PRAV40TA2 PO; -SIMV10TA PO; -b/p med PO
[2018-03-30 08:10] LABS: BASOPHIL % 0.5 % (0.0-2.0); EOSINOPHIL # 0.1 TH/MM3 (0-0.4); HEMATOCRIT 35.2 % (35.0-46.0); HEMOGLOBIN 11.3 GM/DL (11.6-15.3); LYMPH % 25.4 % (9.0-44.0); LYMPHOCYTE # 1.6 TH/MM3 (1.0-4.8); MEAN CELL VOLUME 89.2 FL (80.0-100.0); MEAN CORPUSCULAR HEMOGLOBIN 28.6 PG (27.0-34.0); MEAN CORPUSCULAR HGB CONC 32.1 % (32.0-36.0); MONO % 6.9 % (0.0-8.0); MONOCYTE # 0.4 TH/MM3 (0-0.9); NEUT % 65.2 % (16.0-70.0); PLATELET COUNT 165 TH/MM3 (150-450); RED BLOOD COUNT 3.94 MIL/MM3 (4.00-5.30); RED CELL DISTRIBUTION WIDTH 14.8 % (11.6-17.2); WHITE BLOOD COUNT 6.1 TH/MM3 (4.0-11.0)
[2018-03-30 08:31] LABS: ALT (GPT) 17 U/L (10-53); CHOLESTEROL 245 MG/DL (120-200); TRIGLYCERIDES 140 MG/DL (42-150)
[2018-03-30 08:40] LABS: ALKALINE PHOSPHATASE 129 U/L (45-117); CHOLESTEROL/ HDL RATIO 3.22 RATIO; FREE T3 2.36 PG/ML (2.18-3.98); FREE T4 0.72 NG/DL (0.76-1.46); HDL CHOLESTEROL 75.9 MG/DL (40.0-60.0); LDL CHOLESTEROL 141 MG/DL (0-99); TOTAL BILIRUBIN ADULT 0.2 MG/DL (0.2-1.0); TOTAL PROTEIN 6.9 GM/DL (6.4-8.2)
[2018-03-30 08:41] LABS: ALBUMIN 3.1 GM/DL (3.4-5.0); AST (GOT) 16 U/L (15-37); BICARBONATE 26.5 MEQ/L (21.0-32.0); BLOOD UREA NITROGEN 31 MG/DL (7-18); CALCIUM 8.9 MG/DL (8.5-10.1); CHLORIDE 107 MEQ/L (98-107); DIRECT BILIRUBIN ADULT 0.1 MG/DL (0.0-0.2); GLOMERULAR FILTRATION RATE 45 ML/MIN (>89); GLUCOSE,FASTING 232 MG/DL (74-99); INDIRECT BILIRUBIN 0.1 MG/DL (0.0-0.8); SODIUM (NA) 142 MEQ/L (136-145)
[2018-03-31 16:49] LABS: INTACT PRO INSULIN 42 pmol/L (3.6-22)
[2018-04-01 19:52] LABS: C-PEPTIDE 2.13 ng/mL (0.80-3.85)
== END ==
LOC: CLAB 07:23
DX: E03.9 Hypothyroidism, unspecified (principal); E78.5 Hyperlipidemia, unspecified; E10.8 Type 1 diabetes mellitus with unspecified complications; K76.0 Fatty (change of) liver, not elsewhere classified; E88.81 Metabolic syndrome and other insulin resistance
CPT/HCPCS: 36415; 80048; 80061; 80076; 82043; 83036; 83525; 84206; 84439; 84443; 84481; 84681; 85025

== ENCOUNTER 2018-04-05 19:19 | Inpatient (IN) | payer MEDICARE ==
[~2018-04-05] VITALS: Ht 165.1 cm; Wt 93.0 kg
[2018-04-05 19:28] VITALS: O2SAT 96
[2018-04-05 19:30] VITALS: BP 164/79; PULSE 91; RESP 16; O2SAT 100
[2018-04-05] MEDS ORDERED: SODIUM CHLOR 0.9% 1000 ML INJ 1,000 ML IV ONE (19:31)
[2018-04-05 19:35] VITALS: O2SAT 100; O2SAT 96
[2018-04-05 19:48] VITALS: BP 164/93; PULSE 83; RESP 16; TEMP 97.5; O2SAT 100
--- NOTE | 2018-04-05 19:48 | RADRPT ---
EXAM DATE: 04/05/2018 7:44 PM EDT AGE/SEX: 72 years / Female INDICATIONS: Stroke alert, slurred speech. CLINICAL DATA: This is the patient's initial encounter. Patient reports that signs and symptoms have been present for 1 day and indicates a pain score of 0/10. MEDICAL/SURGICAL HISTORY: Hypertension. CAD. Diabetes. Coronary artery stent. RADIATION DOSE: 37.73 CTDI (mGy) COMPARISON: [facility] [place], CT BRAIN W/O CONTRAST, 10/19/2017. . Report was called by Dr. Fajardo to Dr. Hurt at 0745 PM] TECHNIQUE: CT of the head without contrast. Using automated exposure control and adjustment of the mA and/or kV according to patient size, radiation dose was kept as low as reasonably achievable to ob tain optimal diagnostic quality images. FINDINGS: Cerebrum: Moderate diffuse cerebral atrophy. The ventricles are normal for degree of atrophy. No edil dence of midline shift, mass lesion, hemorrhage or acute infarction. No extraaxial fluid collections are seen. Posterior Fossa: The cerebellum and brainstem are intact. The 4th ventricle is midline. The cerebe llopontine angle is unremarkable. Extracranial: The visualized portion of the orbits is intact. Skull: The calvaria is intact. No evidence of skull fracture. CONCLUSION: 1. Senescent changes without acute intracranial abnormality. Electronically signed by: Stefano Figueroa MD 04/05/2018 7:47 PM EDT
--- NOTE | 2018-04-05 19:52 | PD ---
HPI Chief Complaint: Neuro Symptoms/ Deficits Time Seen by Provider: 19:31 Travel History International Travel<30 days: No Contact w/Intl Traveler<30days: No Traveled to known affect area: No History of Present Illness HPI 72-year-old female with history of hypertension, diabetes, hyperlipidemia, brought in by her sister for evaluation of slurred speech. The patient believes that the symptoms started at around 4:00 PM, but is not exactly sure. She called her sister at around 6:00 PM, and when her sister arrived to take her to the emergency department, the patient was cleaning her house. Upon arrival to the emergency department the patient complains of perioral paresthesias as well as paresthesias to her right hand. There are no focal motor deficits. No visual disturbances. No headache. No chest pain or dyspnea. 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 PFSH Past Medical History Heart Rhythm Problems: No Cancer: No Cardiac Catheterization: Yes (thinks possibly) Cardiovascular Problems: Yes High Cholesterol: Yes Chest Pain: Yes Congestive Heart Failure: No Cerebrovascular Accident: Yes (TIA 2016) Coronary Artery Disease: Yes Diabetes: Yes Patient Takes Glucophage: No Diminished Hearing: No GERD: Yes Glaucoma: Yes Genitourinary: No Hepatitis: No Hiatal Hernia: Yes Heparin Induced Thrombocytopen: No Hypertension: Yes Musculoskeletal: No Neurologic: Yes (NEUROPATHY) Psychiatric: No Reproductive: No Respiratory: No Thyroid Disease: Yes Menopausal: Yes Past Surgical History Abdominal Surgery: Yes (CHOLECYSTECTOMY) Cholecystectomy: Yes Coronary Artery Bypass Graft: No Coronary Stent: Yes (says yes "back in the 70's") Eye Surgery: Yes (LASER SURGERY BOTH EYES,CATARACT SX RIGHT EYE) Gynecologic Surgery: Yes (HYSTERECTOMY) Hysterectomy: Yes Pacemaker: No Other Surgery: Yes (erin,hysterectomy) Family History Family Myocardial Infarction: No Social History Alcohol Use: No Tobacco Use: No Substance Use: No Allergies-Medications (Allergen,Severity, Reaction): Uncoded Allergies: DYE (Allergy, Unknown, DYE GIVEN TO HER BY DR FRAZIER-PT WILL FIND OUT NAME OF DYE , 10/18/17) 08-19-09 "iv dye", "throat swelling, itching" Reported Meds & Prescriptions Reported Meds & Active Scripts Active Reported Pravastatin 40 Mg Tab 40 Mg PO DAILY Chlorthalidone 25 Mg Tab 25 Mg PO EVERY OTHER DAY Levothyroxine (Levothyroxine Sodium) 25 Mcg Tab 25 Mcg PO DAILY Vitamin D-3 (Cholecalciferol) 1,000 Unit Cap 1,000 Units PO DAILY Humalog Inj (Insulin Human Lispro) 1,000 Unit/10 Ml Vial 15 Units SQ TIDAC Aspirin 81 Mg Chew 81 Mg PO DAILY Review of Systems Except as stated in HPI: all other systems reviewed are Neg Physical Exam Narrative GENERAL: Well-developed, well-nourished, awake, alert, GCS 15, no apparent distress. SKIN: Focused skin assessment warm/dry. HEAD: Atraumatic. Normocephalic. EYES: Pupils equal and round. No scleral icterus. No injection or drainage. ENT: Mucous membranes pink and moist. NECK: Trachea midline. No JVD. CARDIOVASCULAR: Regular rate and rhythm. No murmur appreciated. RESPIRATORY: No accessory muscle use. Clear to auscultation. Breath sounds equal bilaterally. GASTROINTESTINAL: Abdomen soft, non-tender, nondistended. Hepatic and splenic margins not palpable. MUSCULOSKELETAL: No obvious deformities. No clubbing. No cyanosis. No edema. NEUROLOGICAL: Slightly slurred speech, speaking in a low tone. Awake and alert. No obvious cranial nerve deficits. Motor grossly within normal limits. Normal speech. Normal nqmaoc-[id number] test bilaterally. No pronator drift. PSYCHIATRIC: Appropriate mood and affect; insight and judgment normal. Data Data Last Documented VS Vital Signs Date Time Temp Pulse Resp B/P (MAP) Pulse Ox O2 Delivery O2 Flow Rate FiO2 04/05/18 19:48 97.5 83 16 164/93 (116) 100 04/05/18 19:35 Nasal Cannula 2.00 Orders Orders Activity Bed Rest (04/05/18 ) Electrocardiogram (04/05/18 ) I-Stat Profile (04/05/18 19:31) Prothrombin Time / Inr (Pt) (04/05/18 19:31) Act Partial Throm Time (Ptt) (04/05/18 19:31) Complete Blood Count With Diff (04/05/18 19:31) Fibrinogen (04/05/18 19:31) Creatine Kinase (Cpk) (04/05/18 19:31) Troponin I (04/05/18 19:31) Ua Includes Microscopic (04/05/18 19:31) Drug Screen, Random Urine (04/05/18 19:31) Type And Screen (04/05/18 19:31) Ct Brain W/O Iv Contrast(Rout) (04/05/18 ) Consult Neurology (04/05/18 ) Blood Glucose (04/05/18 19:31) Ecg Monitoring (04/05/18 19:31) Neuro Checks Q2HX12,Q4H (04/05/18 19:31) Nursing Bedside Swallow Assess .ONCE (04/05/18 19:31) Iv Access Insert/Monitor (04/05/18 19:31) NPO (04/05/18 19:31) Oximetry (04/05/18 19:31) Resp Oxygen Nc Stroke (04/05/18 ) Sodium Chlor 0.9% 1000 Ml Inj (Ns 1000 M (04/05/18 19:31) Cath For Specimen (04/05/18 19:31) Aspirin Ec (Ecotrin Ec) (04/05/18 20:15) Admit Order (Ed Use Only) (04/05/18 20:24) Labs Laboratory Tests Test 04/05/18 19:38 04/05/18 19:57 White Blood Count 7.7 TH/MM3 Red Blood Count 4.31 MIL/MM3 Hemoglobin 12.4 GM/DL Bedside Hemoglobin 12.9 G/DL Hematocrit 37.3 % Bedside Hematocrit 38.0 % Mean Corpuscular Volume 86.5 FL Mean Corpuscular Hemoglobin 28.9 PG Mean Corpuscular Hemoglobin Concent 33.4 % Red Cell Distribution Width 14.4 % Platelet Count 163 TH/MM3 Mean Platelet Volume 10.6 FL Neutrophils (%) (Auto) 71.0 % Lymphocytes (%) (Auto) 19.7 % Monocytes (%) (Auto) 7.2 % Eosinophils (%) (Auto) 1.3 % Basophils (%) (Auto) 0.8 % Neutrophils # (Auto) 5.5 TH/MM3 Lymphocytes # (Auto) 1.5 TH/MM3 Monocytes # (Auto) 0.6 TH/MM3 Eosinophils # (Auto) 0.1 TH/MM3 Basophils # (Auto) 0.1 TH/MM3 CBC Comment DIFF FINAL Differential Comment Prothrombin Time 9.8 SEC Prothromb Time International Ratio 1.0 RATIO Activated Partial Thromboplast Time 32.4 SEC Fibrinogen 432 mg/dL Bedside Sodium 140 MMOL/L Bedside Potassium 3.7 MMOL/L Bedside Chloride 103 MMOL/L Bedside Blood Urea Nitrogen 30 MG/DL Bedside Creatinine 1.6 MG/DL Bedside Glucose 112 MG/DL Total Creatine Kinase 170 U/L Troponin I LESS THAN 0.02 NG/ML Urine Color YELLOW Urine Turbidity CLEAR Urine pH 5.5 Urine Specific [place] 1.012 Urine Protein 100 mg/dL Urine Glucose (UA) NEG mg/dL Urine Ketones NEG mg/dL Urine Occult Blood TRACE Urine Nitrite NEG Urine Bilirubin NEG Urine Urobilinogen LESS THAN 2.0 MG/DL Urine Leukocyte Esterase NEG Urine RBC LESS THAN 1 /hpf Urine WBC LESS THAN 1 /hpf Urine Squamous Epithelial Cells 1 /hpf Urine Amorphous Sediment OCC Urine Bacteria RARE /hpf Microscopic Urinalysis Comment CULT NOT INDICATED Urine Opiates Screen NEG Urine Barbiturates Screen NEG Urine Amphetamines Screen NEG Urine Benzodiazepines Screen NEG Urine Cocaine Screen NEG Urine Cannabinoids Screen NEG MDM Medical Screen Exam Complete: Yes Emergency Medical Condition: Yes Differential Diagnosis CVA, intracranial hemorrhage, metabolic abnormality, UTI Narrative Course 7:36 PM: I discussed the case with on-call neurologist Dr. Chu. Given that the time of onset is not clear and the deficits are very minimal consisting of slightly slurred speech, the patient is not a TPA candidate. 7:50 PM: I was called by the reading radiologist who states that the CT head shows no acute intracranial abnormality. Vital signs reviewed. CBC is unremarkable. BMP is remarkable for BUN 30, creatinine 1.6 Patient has already taking 162 mg of aspirin after her symptoms started. I will give her another 162 mg of aspirin. She will be admitted for further CVA workup. Case discussed with hospitalist Dr. Dalton who will admit the patient to her service. Stroke Alert NIHSS NIH Stroke Scale Result: 2 NIHSS Time Completed: 19:35 Thrombolytic Contraindications Contraindications Comment: Unknown exact time of onset. Minimal deficit. Diagnosis Diagnosis: Primary Impression: CVA (cerebral vascular accident) Qualified Codes: I63.9 - Cerebral infarction, unspecified Additional Impression: Slurred speech Reinier Hurt MD April 05, 2018 19:52
[2018-04-05 19:57] LABS: AUTOMATED NEUTROPHIL # 5.5 TH/MM3 (1.8-7.7); BASOPHIL # 0.1 TH/MM3 (0-0.2); BASOPHIL % 0.8 % (0.0-2.0); EOSINOPHIL # 0.1 TH/MM3 (0-0.4); EOSINOPHIL % 1.3 % (0.0-4.0); HEMATOCRIT 37.3 % (35.0-46.0); HEMOGLOBIN 12.4 GM/DL (11.6-15.3); LYMPH % 19.7 % (9.0-44.0); LYMPHOCYTE # 1.5 TH/MM3 (1.0-4.8); MEAN CELL VOLUME 86.5 FL (80.0-100.0); MEAN CORPUSCULAR HEMOGLOBIN 28.9 PG (27.0-34.0); MEAN CORPUSCULAR HGB CONC 33.4 % (32.0-36.0); MEAN PLATELET VOLUME 10.6 FL (7.0-11.0); MONO % 7.2 % (0.0-8.0); MONOCYTE # 0.6 TH/MM3 (0-0.9); PLATELET COUNT 163 TH/MM3 (150-450); RED BLOOD COUNT 4.31 MIL/MM3 (4.00-5.30); RED CELL DISTRIBUTION WIDTH 14.4 % (11.6-17.2); WHITE BLOOD COUNT 7.7 TH/MM3 (4.0-11.0)
[2018-04-05 20:06] LABS: PROTHROMBIN TIME - PATIENT 9.8 SEC (9.8-11.6)
[2018-04-05] MEDS ORDERED: ASPIRIN EC 81 MG TABEC PO ONE (20:15)
[2018-04-05 20:22] LABS: TROPONIN I LESS THAN 0.02 NG/ML (0.02-0.05)
[2018-04-05 20:24] LABS: AMORPHOUS SEDIMENT, URINE OCC; BACTERIA, URINE RARE /hpf; BILIRUBIN, URINE NEG (NEG); BLOOD, URINE TRACE (NEG); GLUCOSE,URINE NEG (NEG); KETONE, URINE NEG (NEG); NITRITE,URINE NEG (NEG); PH, URINE 5.5 (5.0-8.5); SQUAMOUS EPITHELIAL CELL URINE 1 /hpf (0-5); URINE COLOR YELLOW (YELLW/STRAW); URINE LEUKOCYTE ESTERASE NEG (NEG)
[2018-04-05 21:08] VITALS: BP 137/58; PULSE 81; RESP 16; O2SAT 99
[2018-04-05] MEDS: SODIUM CHLOR 0.9% 1000 ML INJ 1,000 ML IV SCH (22:05)
[2018-04-05] MEDS ORDERED: SODIUM CHLORIDE 0.9% FLUSH 10 ML FLUSH IV FLUSH PRN (22:15)
[2018-04-05] MEDS ORDERED: GLUCAGON 1 MG/ML VIAL OTHER PRN (22:15)
[2018-04-05] MEDS ORDERED: DEXTROSE 50% IN WATER 50 ML VIAL(D50) IV PUSH PRN (22:15)
--- NOTE | 2018-04-05 22:22 | HHI.HP ---
[facility] Venkatesh Rodriguez MD Admission Diagnosis CVA, Slurred Speech Diagnoses: Travel History International Travel<30 Days: No Contact w/Intl Traveler <30 Da: No Traveled to Known Affected Are: No History of Present Illness 72-year-old female with a past medical history significant for diabetes mellitus , coronary artery disease, hypertension and hyperlipidemia presents the emergency department for the evaluation of slurred speech. The patient states that her symptoms started around 4 PM when she was eating dinner. She states she was just not feeling right and called her sister around 6 PM. The patient complains of numbness around her mouth and in her right hand with a strange sensation in her left leg. No lateralizing signs/symptoms. Denies chest pain and shortness of breath. No abdominal pain. No nausea/vomiting/diarrhea. No fevers/chills. Review of Systems Except as stated in HPI: all other systems reviewed are Neg Past Family Social History Past Medical History Diabetes mellitus Coronary artery disease Hypertension Hyperlipidemia Past Surgical History Hysterectomy Cholecystectomy Reported Medications Reported Meds & Active Scripts Active Reported Pravastatin 40 Mg Tab 40 Mg PO DAILY Chlorthalidone 25 Mg Tab 25 Mg PO EVERY OTHER DAY Levothyroxine (Levothyroxine Sodium) 25 Mcg Tab 25 Mcg PO DAILY Vitamin D-3 (Cholecalciferol) 1,000 Unit Cap 1,000 Units PO DAILY Humalog Inj (Insulin Human Lispro) 1,000 Unit/10 Ml Vial 15 Units SQ TIDAC Aspirin 81 Mg Chew 81 Mg PO DAILY Allergies: Uncoded Allergies: DYE (Allergy, Unknown, DYE GIVEN TO HER BY DR FRAZIER-PT WILL FIND OUT NAME OF DYE , 10/18/17) 08-19-09 "iv dye", "throat swelling, itching" Family History Mother with diabetes mellitus Social History Denies alcohol, tobacco and illicit drugs Physical Exam Vital Signs Vital Signs Date Time Temp Pulse Resp B/P (MAP) Pulse Ox O2 Delivery O2 Flow Rate FiO2 04/05/18 21:08 81 16 137/58 (84) 99 Nasal Cannula 2.00 04/05/18 19:48 97.5 83 16 164/93 (116) 100 04/05/18 19:35 16 100 04/05/18 19:35 96 Nasal Cannula 2.00 04/05/18 19:35 100 Nasal Cannula 2.00 04/05/18 19:35 100 04/05/18 19:30 91 16 164/79 (107) 100 04/05/18 19:28 96 2.00 Physical Exam GENERAL: -[place] female lying in bed SKIN: No rashes, ecchymoses or lesions. Cool and dry. HEAD: Atraumatic. Normocephalic. No temporal or scalp tenderness. EYES: Pupils equal round and reactive. Extraocular motions intact. No scleral icterus. No injection or drainage. ENT: Nose without bleeding, purulent drainage or septal hematoma. Throat without erythema, tonsillar hypertrophy or exudate. Uvula midline. Airway patent. NECK: Trachea midline. No JVD or lymphadenopathy. Supple, nontender, no meningeal signs. CARDIOVASCULAR: Regular rate and rhythm without murmurs, gallops, or rubs. RESPIRATORY: Clear to auscultation. Breath sounds equal bilaterally. No wheezes , rales, or rhonchi. GASTROINTESTINAL: Abdomen soft, non-tender, nondistended. No hepato-splenomegaly , or palpable masses. No guarding. MUSCULOSKELETAL: Extremities without clubbing, cyanosis, or edema. No joint tenderness, effusion, or edema noted. No calf tenderness. Negative Homans sign bilaterally. NEUROLOGICAL: Awake and alert. Cranial nerves II through XII intact. Five out of 5 muscle strength in all muscle groups. Possible slurred speech although difficult to tell as patient's baseline unknown. Laboratory Laboratory Tests Test 04/05/18 19:38 04/05/18 19:57 White Blood Count 7.7 Red Blood Count 4.31 Hemoglobin 12.4 Bedside Hemoglobin 12.9 Hematocrit 37.3 Bedside Hematocrit 38.0 Mean Corpuscular Volume 86.5 Mean Corpuscular Hemoglobin 28.9 Mean Corpuscular Hemoglobin Concent 33.4 Red Cell Distribution Width 14.4 Platelet Count 163 Mean Platelet Volume 10.6 Neutrophils (%) (Auto) 71.0 Lymphocytes (%) (Auto) 19.7 Monocytes (%) (Auto) 7.2 Eosinophils (%) (Auto) 1.3 Basophils (%) (Auto) 0.8 Neutrophils # (Auto) 5.5 Lymphocytes # (Auto) 1.5 Monocytes # (Auto) 0.6 Eosinophils # (Auto) 0.1 Basophils # (Auto) 0.1 CBC Comment DIFF FINAL Differential Comment Prothrombin Time 9.8 Prothromb Time International Ratio 1.0 Activated Partial Thromboplast Time 32.4 Fibrinogen 432 Bedside Sodium 140 Bedside Potassium 3.7 Bedside Chloride 103 Bedside Blood Urea Nitrogen 30 Bedside Creatinine 1.6 Bedside Glucose 112 Total Creatine Kinase 170 Troponin I LESS THAN 0.02 Urine Color YELLOW Urine Turbidity CLEAR Urine pH 5.5 Urine Specific [place] 1.012 Urine Protein 100 Urine Glucose (UA) NEG Urine Ketones NEG Urine Occult Blood TRACE Urine Nitrite NEG Urine Bilirubin NEG Urine Urobilinogen LESS THAN 2.0 Urine Leukocyte Esterase NEG Urine RBC LESS THAN 1 Urine WBC LESS THAN 1 Urine Squamous Epithelial Cells 1 Urine Amorphous Sediment OCC Urine Bacteria RARE Microscopic Urinalysis Comment CULT NOT INDICATED Urine Opiates Screen NEG Urine Barbiturates Screen NEG Urine Amphetamines Screen NEG Urine Benzodiazepines Screen NEG Urine Cocaine Screen NEG Urine Cannabinoids Screen NEG Result Diagram: 04/05/181937 Caprini VTE Risk Assessment Caprini VTE Risk Assessment: Mod/High Risk (score >= 2) Caprini Risk Assessment Model Point Value = 1 Point Value = 2 Point Value = 3 Point Value = 5 Age 41-60 Minor surgery BMI > 25 kg/m2 Swollen legs Varicose veins or History of unexplained or recurrent spontaneous Oral contraceptives or hormone replacement Sepsis (< 1 month) Serious lung disease, including pneumonia (< 1 month) Abnormal pulmonary function Acute myocardial infarction Congestive heart failure (< 1 month) History of inflammatory bowel disease Medical patient at bed rest Age 61-74 Arthroscopic surgery Major open surgery (> 45 min) Laparoscopic surgery (> 45 min) Malignancy Confined to bed (> 72 hours) Immobilizing plaster cast Central venous access Age >= 75 History of VTE Family history of VTE Factor V Leiden Prothrombin [id number] Lupus anticoagulant Anticardiolipin antibodies Elevated serum homocysteine Heparin-induced thrombocytopenia Other congenital or acquired thrombophilia Stroke (< 1 month) Elective arthroplasty Hip, pelvis, or leg fracture Acute spinal cord injury (< 1 month) Prophylaxis Regimen Total Risk Factor Score Risk Level Prophylaxis Regimen 0-1 Low Early ambulation 2 Moderate Order ONE of the following: *Sequential Compression Device (SCD) *Heparin 5000 units SQ BID 3-4 Higher Order ONE of the following medications: *Heparin 5000 units SQ TID *Enoxaparin/Lovenox 40 mg SQ daily (WT < 150 kg, CrCl > 30 mL/min) *Enoxaparin/Lovenox 30 mg SQ daily (WT < 150 kg, CrCl > 10-29 mL/min) *Enoxaparin/Lovenox 30 mg SQ BID (WT < 150 kg, CrCl > 30 mL/min) AND/OR *Sequential Compression Device (SCD) 5 or more Highest Order ONE of the following medications: *Heparin 5000 units SQ TID (Preferred with Epidurals) *Enoxaparin/Lovenox 40 mg SQ daily (WT < 150 kg, CrCl > 30 mL/min) *Enoxaparin/Lovenox 30 mg SQ daily (WT < 150 kg, CrCl > 10-29 mL/min) *Enoxaparin/Lovenox 30 mg SQ BID (WT < 150 kg, CrCl > 30 mL/min) AND *Sequential Compression Device (SCD) Assessment and Plan Assessment and Plan Assessment/plan: 1. CVA versus TIA Head CT with no acute intracranial abnormality MRI/MRA brain pending Carotid ultrasound pending Echo pending Neurology consulted, appreciate recommendations 2. Diabetes mellitus Sliding-scale insulin Monitor blood glucose 3. Hypertension/hyperlipidemia/CAD Continue home medications FEN NPO NS at 70 cc/hr Electrolytes: monitor and replete prn Heparin Physician Certification 2 Midnight Certification Type: Admission for Inpatient Services Order for Inpatient Services The services are ordered in accordance with Medicare regulations or non- Medicare payer requirements, as applicable. In the case of services not specified as inpatient-only, they are appropriately provided as inpatient services in accordance with the 2-midnight benchmark. Estimated LOS (days): 2 2 days is the estimated time the patient will need to remain in the hospital, assuming treatment plan goals are met and no additional complications. Post-Hospital Plan: Not yet determined Susan Dalton MD April 05, 2018 22:22
[2018-04-05 22:23] VITALS: BP 126/57; PULSE 74; RESP 16; O2SAT 98
[2018-04-05] MEDS: HEPARIN SODIUM - SQ 10,000 UNITS/ML VIAL SQ SCH (22:23)
[2018-04-05] MEDS ORDERED: PILL SPLITTER OTHER PRN (22:30)
[2018-04-06] VITALS (10 sets, daily range): BP systolic 117–177; BP diastolic 68–83; PULSE 69–84; RESP 18–20; TEMP 97.9–98.3; O2SAT 93–98
[2018-04-06] MEDS: HEPARIN SODIUM - SQ 10,000 UNITS/ML VIAL SQ SCH ×3 (06:00→21:31)
[2018-04-06] MEDS: LEVOTHYROXINE SODIUM 25 MCG TAB PO SCH (06:00)
[2018-04-06 07:02] LABS: AUTOMATED NEUTROPHIL # 3.6 TH/MM3 (1.8-7.7); BASOPHIL % 0.8 % (0.0-2.0); EOSINOPHIL # 0.1 TH/MM3 (0-0.4); EOSINOPHIL % 2.2 % (0.0-4.0); HEMATOCRIT 36.7 % (35.0-46.0); LYMPH % 31.1 % (9.0-44.0); LYMPHOCYTE # 1.9 TH/MM3 (1.0-4.8); MEAN CORPUSCULAR HEMOGLOBIN 28.7 PG (27.0-34.0); MEAN CORPUSCULAR HGB CONC 32.6 % (32.0-36.0); MEAN PLATELET VOLUME 10.7 FL (7.0-11.0); MONO % 6.8 % (0.0-8.0); MONOCYTE # 0.4 TH/MM3 (0-0.9); NEUT % 59.1 % (16.0-70.0); PLATELET COUNT 144 TH/MM3 (150-450); RED BLOOD COUNT 4.18 MIL/MM3 (4.00-5.30); RED CELL DISTRIBUTION WIDTH 14.2 % (11.6-17.2); WHITE BLOOD COUNT 6.1 TH/MM3 (4.0-11.0)
[2018-04-06 07:18] LABS: CHOLESTEROL 354 MG/DL (120-200); TRIGLYCERIDES 228 MG/DL (42-150)
[2018-04-06 07:21] LABS: CHOLESTEROL/ HDL RATIO 5.16 RATIO; HDL CHOLESTEROL 68.6 MG/DL (40.0-60.0); LDL CHOLESTEROL 240 MG/DL (0-99)
[2018-04-06 07:28] LABS: BICARBONATE 25.8 MEQ/L (21.0-32.0); BLOOD UREA NITROGEN 28 MG/DL (7-18); CALCIUM 8.6 MG/DL (8.5-10.1); CHLORIDE 107 MEQ/L (98-107); CREATININE 1.28 MG/DL (0.50-1.00); GLOMERULAR FILTRATION RATE 50 ML/MIN (>89); GLUCOSE,RANDOM 141 MG/DL (74-106); SODIUM (NA) 142 MEQ/L (136-145)
[2018-04-06] MEDS: INSULIN ASPART SUPPLEMENTAL SCALE SQ SCH ×4 (08:27→21:32)
[2018-04-06] MEDS: ASPIRIN 325 MG TAB PO SCH (08:29)
[2018-04-06] MEDS: CHLORTHALIDONE 50 MG TAB PO SCH (08:29)
[2018-04-06] MEDS: SODIUM CHLOR 0.9% 1000 ML INJ 1,000 ML IV SCH (08:29)
[2018-04-06] MEDS ORDERED: SODIUM CHLORIDE 0.9% FLUSH 10 ML FLUSH IV FLUSH SCH (09:00)
[2018-04-06] MEDS ORDERED: PRAVASTATIN SOD 40 MG TAB PO SCH (09:00)
--- NOTE | 2018-04-06 09:49 | RADRPT ---
EXAM DATE: 04/06/2018 9:34 AM EDT AGE/SEX: 72 years / Female INDICATIONS: Slurred speech. History of Transient Ischemic Attack. CLINICAL DATA: This is the patient's initial encounter. Patient reports that signs and symptoms have been present for 2 days and indicates a pain score of 0/10. MEDICAL/SURGICAL HISTORY: Transient ischemic attack. Hypercholesterolemia. Gastroesophageal r eflux disease. Neuropathy bilateral legs. Coronary artery disease. Hypertension. Gall bladder diseas e. Hiatal hernia. Diabetes. Renal failure. Cholecystectomy. Hysterectomy. Cataract surgery. Laser e ye surgery. Cardiac catheterization with stent. COMPARISON: [facility] [place], CAR[place]ID ARTERIES[facility]. [facility] [place] [facility], 2015-[facility]12 VELOCITY PARAMETERS: ICA/CCA Ratio: Right 1.4 , Left 1.1 ICA: Right 98 cm/sec, Left 87 cm/sec CCA: Right 69 cm/sec, Left 81 cm/sec ECA: Right 47 cm/sec, Left 58 cm/sec Vertebral: Right 42 cm/sec antegrade, Left 62 cm/sec antegrade FINDINGS: Right Carotid: No significant stenosis is visualized. The waveforms are within normal limits. Left Carotid: No significant stenosis is visualized. The waveforms are within normal limits. Other: None. CONCLUSION: 1. Right Internal Carotid Artery: Minimal atherosclerotic plaquing. No hemodynamically significant s tenosis identified. 2. Left Internal Carotid Artery: Minimal atherosclerotic plaquing. No hemodynamically significant st enosis identified. Electronically signed by: Get Webb MD 04/06/2018 9:48 AM EDT
--- NOTE | 2018-04-06 11:43 | RADRPT ---
EXAM DATE: 04/06/2018 11:27 AM EDT AGE/SEX: 72 years / Female INDICATIONS: Slurred speech. Stroke CLINICAL DATA: This is the patient's subsequent encounter. Patient reports that signs and symptoms h ave been present for 2 days and indicates a pain score of 0/10. MEDICAL/SURGICAL HISTORY: . Kidney Disease, HTN, DM Cholecystectomy. Hysterectomy. COMPARISON: No prior Mobile exams available for comparison. TECHNIQUE: Multiplanar, multisequence examination of the brain was performed without contrast. FINDINGS: The diffusion restricted images demonstrate a small area of abnormal restricted diffusion signal in t he periventricular white matter on the left. This would be consistent with a very small area of corti demian infarct. T2-weighted imaging is provided. The ventricles are normal in size and configuration. There are scatt ered areas of increased T2 signal in the periventricular white matter most consistent with mild micro vascular ischemic demyelinative change. Sagittal T1-weighted images demonstrate normal formation of the corpus callosum and midline structure s. The cerebellar tonsils are in their appropriate location. No extra-axial fluid collections are identified. No mass lesion is present. The appearance of the pos terior fossa is unremarkable. The visualized portion of sinus and orbit are intact. CONCLUSION: 1. Small area of acute cortical infarction on the left. No evidence of hemorrhage within this. Electronically signed by: Get Webb MD 04/06/2018 11:42 AM EDT
--- NOTE | 2018-04-06 15:12 | EKG ---
Date Performed: 04/05/2018 Time Performed: 19:33:49 PTAGE: 72 years EKG: Sinus rhythm POSSIBLE LEFT ATRIAL ENLARGEMENT NONSPECIFIC ST & T-WAVE ABNORMALITY BORDERLINE ECG Since the PREVIOUS TRACING , no significant change noted PREVIOUS TRACIN02/22/2018 15.51 DOCTOR: Perfecto Colbert Interpretating Date/Time 04/06/2018 15:11:55
--- NOTE | 2018-04-06 15:30 | HHI.PR ---
Subjective Remarks Patient sitting on the chair denied having pain however to me she sounded noncoherent she was unable to answer specifically to my questions She looks comfortable Objective Vitals Vital Signs Date Time Temp Pulse Resp B/P (MAP) Pulse Ox O2 Delivery O2 Flow Rate FiO2 04/06/18 14:54 93 21 04/06/18 11:07 97.9 82 20 177/80 (112) 96 04/06/18 09:07 78 04/06/18 07:47 98.0 77 20 176/83 (114) 94 04/06/18 06:36 98.3 69 19 129/69 (89) 98 04/05/18 23:53 04/05/18 22:23 74 16 126/57 (80) 98 Nasal Cannula 2.00 04/05/18 21:08 81 16 137/58 (84) 99 Nasal Cannula 2.00 04/05/18 19:48 97.5 83 16 164/93 (116) 100 04/05/18 19:35 16 100 04/05/18 19:35 96 Nasal Cannula 2.00 04/05/18 19:35 100 Nasal Cannula 2.00 04/05/18 19:35 100 04/05/18 19:30 91 16 164/79 (107) 100 04/05/18 19:28 96 2.00 I/O 04/05/18 04/05/18 04/05/18 04/06/18 04/06/18 04/06/18 07:00 15:00 23:00 07:00 15:00 23:00 Intake Total 550 ml Balance 550 ml Intake Oral 550 ml # Voids 2 # Bowel Movements 0 Result Diagram: 04/06/18 0600 04/06/18 0600 Objective Remarks GENERAL: This is a well-nourished, well-developed patient, in no apparent distress. CARDIOVASCULAR: RRR, no gallops, or rubs. RESPIRATORY: Fair air entry bilaterally. No W, R, or R GASTROINTESTINAL: Abdomen soft, non-tender, nondistended. Positive bowel sounds MUSCULOSKELETAL: Extremities without clubbing, cyanosis, or edema. Pedal pulses appreciated NEUROLOGICAL: Awake and alert but not coherent. Moves all extremity. Normal speech.no focal neurological deficit A/P Assessment and Plan 04/06: Awaiting report of the MRI, LDL is significantly elevated patient need high intensity I will make her Pravachol dose 80 mg, also creatinine is increasing will avoid nephrotoxin, monitor CHAI 1. CVA versus TIA Head CT with no acute intracranial abnormality MRI/MRA brain pending Carotid ultrasound pending Echo pending Neurology consulted, appreciate recommendations 2. Diabetes mellitus Sliding-scale insulin Monitor blood glucose 3. Hypertension/hyperlipidemia/CAD Continue home medications 4. DEVON Continue hydration, avoid nephrotoxin, monitor BMP FEN NPO NS at 70 cc/hr Electrolytes: monitor and replete prn Heparin Trevor Palacio MD April 06, 2018 15:30
--- NOTE | 2018-04-06 16:50 | RADRPT ---
EXAM DATE: 04/06/2018 3:33 PM EDT AGE/SEX: 72 years / Female INDICATIONS: Slurred speech. Stroke CLINICAL DATA: This is the patient's subsequent encounter. Patient reports that signs and symptoms h ave been present for 2 days and indicates a pain score of 0/10. MEDICAL/SURGICAL HISTORY: . Kidney Disease, DM, HTN Hysterectomy. Cholecystectomy. COMPARISON: [facility] – [place], CT BRAIN W/O CONTRAST, 04/05/2018. . TECHNIQUE: 3D [id number] MRA was performed. Source images, multiplanar STS MIP, and 3D volum e MIP reconstructions were reviewed. FINDINGS: Anterior Circulation: Intracranial Carotid Arteries: Diffuse atherosclerotic calcifications with moderate right and mild le ft distal carotid stenosis. MARIA C: There is no evidence for aneurysm, vessel truncation or stenosis, and no evidence for vascular m alformation. MCA: There is no evidence for aneurysm, vessel truncation or stenosis, and no evidence for vascular m alformation. Posterior Circulation: Distal Vertebral Arteries: Distal Vertebral arteries are symetrical and patent. Basilar Artery: There is no evidence for aneurysm, vessel truncation or stenosis, and no evidence for vascular malformation. COLLISION REPAIRER and Cerebellar Branches: There is no evidence for aneurysm, vessel truncation or stenosis, and no evidence for vascular malformation. CONCLUSION: 1. Diffuse disease involving the carotid terminus bilaterally with moderate right and mild left sten osis. 2. Otherwise, unremarkable MRA examination of the havasupai of [place]. No large vessel occlusion. Electronically signed by: Stefano Figueroa MD 04/06/2018 4:49 PM EDT
[2018-04-06] MEDS ORDERED: DEXTROSE 50% IN WATER 50 ML VIAL(D50) IV PUSH PRN (19:00)
[2018-04-06] MEDS ORDERED: SODIUM CHLORIDE 0.9% FLUSH 10 ML FLUSH IV FLUSH PRN (19:00)
[2018-04-06] MEDS ORDERED: GLUCAGON 1 MG/ML VIAL OTHER PRN (19:00)
[2018-04-06] MEDS: CLOPIDOGREL 75 MG TAB PO SCH (19:10)
--- NOTE | 2018-04-06 19:36 | MB ---
cc: Lane Lay MD, PhD Lane Lay MD PhD DATE: 04/06/2018 REASON FOR CONSULTATION: Stroke. HISTORY OF PRESENT ILLNESS: Ms. Mon is a 72-year-old female who yesterday was in her usual state of health until yesterday afternoon. She started having slurring of her speech. She had no lateralizing symptoms. No focal weakness or numbness, vertigo or double vision. Her symptoms have persisted. PAST MEDICAL HISTORY: There is a history of stroke in the past. She has a history of diabetes, coronary artery disease, hypertension, hyperlipidemia, hysterectomy, cholecystectomy. MEDICATIONS AT HOME: 1. Pravastatin 40 mg daily. 2. Chlorthalidone 25 mg every other day. 3. Levothyroxine. 4. Vitamin D3 5. Humulin insulin. 6. Aspirin 81 mg daily. ALLERGIES: "DYE" SOCIAL HISTORY: Denies tobacco use or alcohol use. PHYSICAL EXAMINATION. VITAL SIGNS: Blood pressure is 163/77, pulse 81, respirations 20, temperature 97.9 degrees. Higher cortical function: She is alert and oriented. Speech is very dysarthric, but not aphasic. She follows commands. Cranial nerves 2-12 are normal. Motor exam reveals 5/5 strength of all groups. There is no drift. Fine motor skills are normal. Reflexes are symmetric. Cerebellar testing is normal. IMAGING STUDIES: CT brain: No acute change. MRI of the brain shows an acute infarction which is very small in the left periventricular white matter on the diffusion images otherwise normal. MRA of the brain shows atherosclerotic disease in the carotid terminus bilaterally. No large vessel occlusion. Carotid ultrasound reveals no evidence of any significant carotid artery stenosis. CARDIOLOGY STUDIES: EKG: Possible left atrial enlargement, normal sinus rhythm. No atrial fibrillation identified. LABORATORY DATA: The white count is 6100, hemoglobin 12, hematocrit 36.7%, platelet count is 144,000. Sodium is 142, potassium 3.9, chloride 107, CO2 of 25.8. The BUN is 28, creatinine 1.28, GFR 50, glucose 141. Hemoglobin A1c is 9. Triglycerides 228, cholesterol 354, LDL 240. Tox screen is negative. Urinalysis: The pH is 5.5, specific gravity 1.012, protein is 100. IMPRESSION: Small left ybarra radiata stroke. RECOMMENDATIONS: Start Plavix 75 mg daily. I also recommend statin given the elevated LDL. I will continue to monitor. Cardiac telemetry, rule out fibrillation. Also check an echocardiogram. She may benefit as an outpatient with a long-term campus monitor such as a loop recorder, to be sure she does not have intermittent atrial fibrillation. Thank you for asking me to see this nice patient. Lane Lay MD, PhD ANTELMO/ , 06:46 PM , 07:34 PM
[2018-04-06] MEDS: SODIUM CHLORIDE 0.9% FLUSH 10 ML FLUSH IV FLUSH SCH (21:32)
[2018-04-07] VITALS (11 sets, daily range): BP systolic 134–183; BP diastolic 65–86; PULSE 74–96; RESP 18–20; TEMP 97.7–98.2; O2SAT 94–98
[2018-04-07] MEDS: SODIUM CHLOR 0.9% 1000 ML INJ 1,000 ML IV SCH ×2 (03:34→16:00)
[2018-04-07] MEDS: HEPARIN SODIUM - SQ 10,000 UNITS/ML VIAL SQ SCH ×3 (05:31→21:48)
[2018-04-07] MEDS: LEVOTHYROXINE SODIUM 25 MCG TAB PO SCH (05:32)
[2018-04-07] MEDS: SODIUM CHLORIDE 0.9% FLUSH 10 ML FLUSH IV FLUSH SCH ×2 (08:22→21:46)
[2018-04-07] MEDS: INSULIN ASPART SUPPLEMENTAL SCALE SQ SCH ×4 (08:24→21:47)
[2018-04-07] MEDS: CLOPIDOGREL 75 MG TAB PO SCH (08:25)
[2018-04-07] MEDS: ASPIRIN 325 MG TAB PO SCH (08:26)
[2018-04-07] MEDS: PRAVASTATIN SOD 80 MG TAB PO SCH (08:26)
[2018-04-07 15:09] LABS: BICARBONATE 28.9 MEQ/L (21.0-32.0); CALCIUM 9.4 MG/DL (8.5-10.1); CREATININE 1.25 MG/DL (0.50-1.00)
--- NOTE | 2018-04-07 18:14 | HHI.PR ---
Review/Management Diagnosis small left parietal cva Plan continue plavix follow up echo continue speech therapy Allow permissive hypertension next 1-2 days, then reduce to normal. Diagnosis/Plan: Subjective Subjective Comments No acute events reported speech is still dysarthric without change Active Medications Current Medications Medications (Trade) Dose Ordered Sig/Efra Route Start Time Stop Time Status Last Admin Sodium Chloride 1,000 ml @ 70 mls/hr [id number] IV 04/05/18 22:05 04/07/18 03:34 (Aspirin) 325 mg DAILY PO 04/06/18 09:00 04/07/18 08:26 (Heparin Inj) 5,000 units Q8HR SQ 04/05/18 22:15 04/07/18 13:33 (Synthroid) 25 mcg DAILY@0600 PO 04/06/18 06:00 04/07/18 05:32 (Hygroton) 25 mg EVERY OTHER DAY PO 04/06/18 09:00 04/06/18 08:29 (Pill Splitter) 1 ea UNSCH PRN OTHER 04/05/18 22:30 (Pravachol) 80 mg DAILY PO 04/07/18 09:00 04/07/18 08:26 (NS Flush) 2 ml BID IV FLUSH 04/06/18 21:00 04/06/18 21:32 (NS Flush) 2 ml UNSCH PRN IV FLUSH 04/06/18 19:00 (Plavix) 75 mg DAILY PO 04/06/18 19:00 04/07/18 08:25 (NovoLOG SUPPLEMENTAL SCALE) 1 ACHS SQ 04/06/18 21:00 04/07/18 17:54 (D50w (Vial) Inj) 50 ml UNSCH PRN IV PUSH 04/06/18 19:00 (Glucagon Inj) 1 mg UNSCH PRN OTHER 04/06/18 19:00 Allergies Allergies Uncoded Allergies DYE ( Allergy, Unknown, DYE GIVEN TO HER BY DR FRAZIER-PT WILL FIND OUT NAME OF DYE , 10/18/17) Exam I&O / VS 04/07/18 04/07/18 04/08/18 15:00 23:00 07:00 Intake Total 360 ml Balance 360 ml Intake Oral 360 ml Vital Signs Date Time Temp Pulse Resp B/P (MAP) Pulse Ox O2 Delivery O2 Flow Rate FiO2 6/1/18 17:43 21 04/07/18 17:39 183/86 (118) 04/07/18 17:00 79 04/07/18 12:04 80 04/07/18 11:10 98.2 84 20 158/77 (104) 94 04/07/18 10:57 21 04/07/18 08:50 96 04/07/18 08:14 97.7 76 20 165/82 (109) 95 04/07/18 05:05 97.8 79 18 166/85 (112) 94 04/07/18 04:00 74 04/07/18 01:13 81 04/07/18 00:24 97.7 80 18 134/65 (88) 98 04/06/18 22:39 94 21 04/06/18 21:40 82 04/06/18 20:55 98.1 84 18 117/68 (84) 95 Exam Comments alert, speech is dysarthric CN intact MOTOR 5/5 BUE and BLE Objective Micro and Labs Laboratory Tests Test 04/07/18 14:08 Blood Urea Nitrogen 27 Creatinine 1.25 Random Glucose 238 Calcium Level 9.4 Sodium Level 140 Potassium Level 4.3 Chloride Level 102 Carbon Dioxide Level 28.9 Anion Gap 9 Estimat Glomerular Filtration Rate [address] Lay MD PhD Apr 07, 2018 18:14
--- NOTE | 2018-04-07 18:28 | HHI.PR ---
Subjective Remarks Patient is coughing, suspect aspiration will get speech therapy eval after the stroke No other complaint patient typically she does not answer questions coherently MRI showing small infarction in the left cortical , MRA diffuse carotid disease right and the left, appreciate neurology recommendation continue permissive hypertension for about 1 day or 2, continue Plavix and aspirin and follow 2D echo Objective Vitals Vital Signs Date Time Temp Pulse Resp B/P (MAP) Pulse Ox O2 Delivery O2 Flow Rate FiO2 04/07/18 17:43 21 04/07/18 17:39 183/86 (118) 04/07/18 17:00 79 04/07/18 12:04 80 04/07/18 11:10 98.2 84 20 158/77 (104) 94 04/07/18 10:57 21 04/07/18 08:50 96 04/07/18 08:14 97.7 76 20 165/82 (109) 95 04/07/18 05:05 97.8 79 18 166/85 (112) 94 04/07/18 04:00 74 04/07/18 01:13 81 04/07/18 00:24 97.7 80 18 134/65 (88) 98 04/06/18 22:39 94 21 04/06/18 21:40 82 04/06/18 20:55 98.1 84 18 117/68 (84) 95 I/O 04/06/18 04/06/18 04/06/18 04/07/18 04/07/18 04/07/18 06:59 14:59 22:59 06:59 14:59 22:59 Intake Total 550 ml 1270 ml 360 ml Balance 550 ml 1270 ml 360 ml Intake Oral 550 ml 600 ml 360 ml IV Total 670 ml # Voids 2 4 1 # Bowel Movements 0 0 Result Diagram: 04/06/18 0600 04/07/18 1408 Objective Remarks GENERAL: This is a well-nourished, well-developed patient, in no apparent distress. CARDIOVASCULAR: RRR, no gallops, or rubs. RESPIRATORY: Fair air entry bilaterally. No W, R, or R GASTROINTESTINAL: Abdomen soft, non-tender, nondistended. Positive bowel sounds MUSCULOSKELETAL: Extremities without clubbing, cyanosis, or edema. Pedal pulses appreciated NEUROLOGICAL: Awake and alert but not coherent. Moves all extremity. Normal speech.no focal neurological deficit A/P Assessment and Plan 04/06: Awaiting report of the MRI, LDL is significantly elevated patient need high intensity I will make her Pravachol dose 80 mg, also creatinine is increasing will avoid nephrotoxin, monitor CHAI 04/07:MRI showing small infarction in the left cortical , MRA diffuse carotid disease right and the left, appreciate neurology recommendation continue permissive hypertension for about 1 day or 2, continue Plavix and aspirin and follow 2D echo A/P: 1. CVA versus TIA Head CT with no acute intracranial abnormality MRI/MRA brain pending Carotid ultrasound pending Echo pending Neurology consulted, appreciate recommendations 2. Diabetes mellitus Sliding-scale insulin Monitor blood glucose 3. Hypertension/hyperlipidemia/CAD Continue home medications 4. DEVON Continue hydration, avoid nephrotoxin, monitor BMP FEN NPO NS at 70 cc/hr Electrolytes: monitor and replete prn Heparin Trevor Palacio MD Apr 07, 2018 18:28
--- NOTE | 2018-04-07 20:58 | ECHRPT ---
Indication: CVA/TIA CONCLUSIONS Mildly dilated left ventricle. Mild concentric left ventricular hypertrophy. The left ventricular systolic function is mildly reduced with an estimated ejection fraction in the range of 45- 50%. Mitral annular calcification is present. Trace mitral valve regurgitation. Aortic valve sclerosis is present. BP: / HR: Rhythm: MEASUREMENTS (Male / Female) Normal Values Technical Quality: 2D ECHO LV Diastolic Diameter PLAX 5.0 cm 4.2 - 5.9 / 3.9 - 5.3 cm LV Systolic Diameter PLAX 4.2 cm IVS Diastolic Thickness 1.6 cm 0.6 - 1.0 / 0.6 - 0.9 cm LVPW Diastolic Thickness 0.8 cm 0.6 - 1.0 / 0.6 - 0.9 cm LV Relative Wall Thickness 0.5 RV Internal Dim ED PLAX 2.1 cm M-MODE Aortic Root Diameter MM 2.8 cm AV Cusp Separation MM 1.8 cm DOPPLER MR Peak Velocity 521.0 cm/s MR Peak Gradient 108.6 mmHg TR Peak Velocity 261.0 cm/s TR Peak Gradient 27.2 mmHg Right Atrial Pressure 5.0 mmHg Pulmonary Artery Systolic Pressu 32.2 mmHg Right Ventricular Systolic Press 32.2 mmHg FINDINGS LEFT VENTRICLE Mildly dilated left ventricle. Mild concentric left ventricular hypertrophy. The left ventricular systolic function is mildly reduced with an estimated ejection fraction in the range of 45- 50%. RIGHT VENTRICLE Normal right ventricular size and systolic function. LEFT ATRIUM The left atrial size is normal. RIGHT ATRIUM The right atrial size is normal. ATRIAL SEPTUM Normal atrial septal thickness without atrial level shunting by limited color doppler interrogation. AORTA The aortic root and proximal ascending aorta are normal in size on limited imaging. MITRAL VALVE Mitral annular calcification is present. Trace mitral valve regurgitation. AORTIC VALVE Aortic valve sclerosis is present. TRICUSPID VALVE Structurally normal tricuspid valve. No tricuspid valve stenosis or regurgitation. PULMONARY VALVE No pulmonary valve regurgitation or stenosis. VESSELS The inferior vena cava is normal in size. PERICARDIUM No pericardial effusion. Steve Roberts MD, FACC (Electronically Signed) Final Date:07 April 2018 20:57
[2018-04-08] VITALS (8 sets, daily range): BP systolic 166–194; BP diastolic 73–90; PULSE 71–95; RESP 18–22; TEMP 97.5–98; O2SAT 96–100
[2018-04-08] MEDS: LEVOTHYROXINE SODIUM 25 MCG TAB PO SCH (05:09)
[2018-04-08] MEDS: HEPARIN SODIUM - SQ 10,000 UNITS/ML VIAL SQ SCH ×3 (05:10→21:58)
[2018-04-08] MEDS: SODIUM CHLOR 0.9% 1000 ML INJ 1,000 ML IV SCH ×2 (05:11→21:35)
[2018-04-08 07:48] LABS: BICARBONATE 28.3 MEQ/L (21.0-32.0); CALCIUM 9.4 MG/DL (8.5-10.1); CREATININE 1.18 MG/DL (0.50-1.00)
[2018-04-08] MEDS: CHLORTHALIDONE 50 MG TAB PO SCH (08:20)
[2018-04-08] MEDS: CLOPIDOGREL 75 MG TAB PO SCH (08:21)
[2018-04-08] MEDS: ASPIRIN 325 MG TAB PO SCH (08:21)
[2018-04-08] MEDS: PRAVASTATIN SOD 80 MG TAB PO SCH (08:21)
[2018-04-08] MEDS: INSULIN ASPART SUPPLEMENTAL SCALE SQ SCH ×4 (09:23→21:57)
[2018-04-08] MEDS: SODIUM CHLORIDE 0.9% FLUSH 10 ML FLUSH IV FLUSH SCH ×2 (10:28→21:00)
[2018-04-08] MEDS ORDERED: GADODIAMIDE PF 287 MG/ML 20 ML VIAL (for RAD MRI) IVCONTRAST ONE (11:55)
--- NOTE | 2018-04-08 12:21 | RADRPT ---
EXAM DATE: 04/08/2018 12:13 PM EDT AGE/SEX: 72 years / Female INDICATIONS: Altered mental status. CLINICAL DATA: This is the patient's subsequent encounter. Patient reports that signs and symptoms h ave been present for 4 - 6 days and indicates a pain score of 0/10. MEDICAL/SURGICAL HISTORY: . Kidney Disease, HTN, DM Cholecystectomy. Hysterectomy. COMPARISON: [facility] – [place], MRI BRAIN W/O CONTRAST, 04/06/2018. . TECHNIQUE: Multiplanar, multisequence examination of the brain was performed without and with 18 ml O mniscan (gadodiamide) contrast as a single exam dose. FINDINGS: Cerebrum: Stable focal area of restricted diffusion identified within the left periventricular white matter at the junction of the left frontal and parietal lobe. There is increased T2 signal and loss of T1 signal within this region. No evidence of adjacent enhancement or mass effect. This appears sli ghtly more prominent as compared to the exam of April 06, 2018. Gradient echo imaging demonstrates scat tered areas of blooming consistent with small microhemorrhages. White Matter: Periventricular white matter signal changes, prominent perivascular no spaces within t he basal ganglia. Posterior Fossa: The cerebellum and brainstem are intact. The 4th ventricle is midline. The cerebel lopontine angle is unremarkable. The cerebellar tonsils are normal in position. Diffusion Imaging: Focal restricted diffusion as noted above. Extracranial: The visualized portions of the orbits and paranasal sinuses are unremarkable. Post Contrast: No abnormal areas of parenchymal or dural enhancement. No evidence of blood-brain ba rrier breakdown. CONCLUSION: 1. Stable appearance of a small infarct within the periventricular white matter of the left frontal parietal lobe.. Electronically signed by: Cat Tucker MD 04/08/2018 12:19 PM EDT
--- NOTE | 2018-04-08 13:07 | HHI.PR ---
Subjective Remarks still c/o cough on nc 1 l no f/c concern about her BG Objective Vitals Vital Signs Date Time Temp Pulse Resp B/P (MAP) Pulse Ox O2 Delivery O2 Flow Rate FiO2 04/08/18 10:35 95 170/84 (112) 98 04/08/18 08:07 97.5 77 18 194/87 (122) 96 04/08/18 04:33 97.5 71 20 169/73 (105) 96 04/08/18 00:42 97.7 81 20 166/81 (109) 98 04/07/18 20:42 97.8 74 20 158/74 (102) 96 04/07/18 17:43 21 04/07/18 17:39 183/86 (118) 04/07/18 17:00 79 I/O 04/07/18 04/07/18 04/07/18 04/08/18 04/08/18 04/08/18 07:00 15:00 23:00 07:00 15:00 23:00 Intake Total 360 ml Balance 360 ml Intake Oral 360 ml # Voids 1 3 Result Diagram: 04/06/18 0600 04/08/18 06 Objective Remarks GENERAL: This is a well-nourished, well-developed patient, in no apparent distress. CARDIOVASCULAR: RRR, no gallops, or rubs. RESPIRATORY: crackles R base GASTROINTESTINAL: Abdomen soft, non-tender, nondistended. Positive bowel sounds MUSCULOSKELETAL: Extremities without clubbing, cyanosis, or edema. Pedal pulses appreciated NEUROLOGICAL: Awake and alert but not coherent. Moves all extremity. Normal speech.no focal neurological deficit A/P Assessment and Plan 04/06: Awaiting report of the MRI, LDL is significantly elevated patient need high intensity I will make her Pravachol dose 80 mg, also creatinine is increasing will avoid nephrotoxin, monitor CHAI 04/07:MRI showing small infarction in the left cortical , MRA diffuse carotid disease right and the left, appreciate neurology recommendation continue permissive hypertension for about 1 day or 2, continue Plavix and aspirin and follow 2D echo 04/08: MRI w renee showed left small parietal lobe infarct , neurology ff , continue permissive htn for 1 more day cough w sob , R basilar crackles >cxr now , cbc uncontrolled DM >>add levemir 5u bid , prebrandial novolog 2u tid A/P: 1. CVA versus TIA Head CT with no acute intracranial abnormality MRI/MRA brain pending Carotid ultrasound pending Echo pending Neurology consulted, appreciate recommendations 2. Diabetes mellitus Sliding-scale insulin Monitor blood glucose 3. Hypertension/hyperlipidemia/CAD Continue home medications 4. DEVON Continue hydration, avoid nephrotoxin, monitor BMP FEN NPO NS at 70 cc/hr Electrolytes: monitor and replete prn Heparin Trevor Palacio MD Apr 08, 2018 13:07
[2018-04-08] MEDS ORDERED: DOCUSATE SODIUM 50 MG/SENNA 8.6 MG TAB PO PRN (13:30)
[2018-04-08] MEDS ORDERED: MAGNESIUM HYDROXIDE SUSP 30 ML CUP PO PRN (13:30)
[2018-04-08] MEDS ORDERED: BISACODYL 10 MG SUPP RECTAL PRN (13:30)
--- NOTE | 2018-04-08 15:40 | RADRPT ---
EXAM DATE: 04/08/2018 3:29 PM EDT AGE/SEX: 72 years / Female INDICATIONS: Shortness of breath. CLINICAL DATA: This is the patient's initial encounter. Patient reports that signs and symptoms have been present for 1 day and indicates a pain score of 0/10. MEDICAL/SURGICAL HISTORY: Hypertension. Kidney Disease . Cholecystectomy. Hysterectomy. COMPARISON: [facility] – [place], CHEST SINGLE AP, 10/18/2017. . FINDINGS: A single AP view of the chest demonstrates the lungs to be symmetrically aerated without evidence of mass, infiltrate or effusion. The cardiomediastinal contours are unremarkable. Osseous structures a re intact. CONCLUSION: No evidence of acute cardiopulmonary disease. Electronically signed by: Miah Gage MD 04/08/2018 3:39 PM EDT
[2018-04-08 15:49] LABS: AUTOMATED NEUTROPHIL # 3.7 TH/MM3 (1.8-7.7); BASOPHIL % 0.6 % (0.0-2.0); EOSINOPHIL # 0.1 TH/MM3 (0-0.4); EOSINOPHIL % 1.9 % (0.0-4.0); HEMATOCRIT 38.2 % (35.0-46.0); HEMOGLOBIN 12.3 GM/DL (11.6-15.3); LYMPH % 26.6 % (9.0-44.0); LYMPHOCYTE # 1.6 TH/MM3 (1.0-4.8); MEAN CELL VOLUME 88.2 FL (80.0-100.0); MEAN CORPUSCULAR HEMOGLOBIN 28.4 PG (27.0-34.0); MEAN CORPUSCULAR HGB CONC 32.2 % (32.0-36.0); MEAN PLATELET VOLUME 10.4 FL (7.0-11.0); MONO % 8.2 % (0.0-8.0); MONOCYTE # 0.5 TH/MM3 (0-0.9); NEUT % 62.7 % (16.0-70.0); PLATELET COUNT 146 TH/MM3 (150-450); RED BLOOD COUNT 4.33 MIL/MM3 (4.00-5.30); RED CELL DISTRIBUTION WIDTH 14.1 % (11.6-17.2)
[2018-04-08] MEDS: INSULIN HUMAN NPH 1,000 UNITS/10 ML VIAL SQ SCH (18:28)
[2018-04-08] MEDS: INSULIN DETEMIR 100 UNITS/ML VIAL SQ SCH (21:56)
[2018-04-09] VITALS (9 sets, daily range): BP systolic 128–178; BP diastolic 74–84; PULSE 76–91; RESP 16–19; TEMP 97.8–98.3; O2SAT 95–99
[2018-04-09] MEDS: LEVOTHYROXINE SODIUM 25 MCG TAB PO SCH (05:07)
[2018-04-09] MEDS: HEPARIN SODIUM - SQ 10,000 UNITS/ML VIAL SQ SCH ×3 (05:07→21:07)
[2018-04-09] MEDS: SODIUM CHLOR 0.9% 1000 ML INJ 1,000 ML IV SCH (08:00)
[2018-04-09 08:36] LABS: BICARBONATE 24.7 MEQ/L (21.0-32.0); CALCIUM 9.8 MG/DL (8.5-10.1); CREATININE 1.16 MG/DL (0.50-1.00)
[2018-04-09] MEDS: PRAVASTATIN SOD 80 MG TAB PO SCH (08:50)
[2018-04-09] MEDS: ASPIRIN 325 MG TAB PO SCH (08:50)
[2018-04-09] MEDS: CLOPIDOGREL 75 MG TAB PO SCH (08:50)
[2018-04-09] MEDS: INSULIN HUMAN NPH 1,000 UNITS/10 ML VIAL SQ SCH ×3 (08:52→18:16)
[2018-04-09] MEDS: INSULIN DETEMIR 100 UNITS/ML VIAL SQ SCH ×2 (08:52→21:07)
[2018-04-09] MEDS: INSULIN ASPART SUPPLEMENTAL SCALE SQ SCH ×4 (08:53→21:07)
[2018-04-09] MEDS: SODIUM CHLORIDE 0.9% FLUSH 10 ML FLUSH IV FLUSH SCH ×2 (08:54→21:08)
--- NOTE | 2018-04-09 13:33 | HHI.PR ---
Subjective Remarks Patient is about to take a shower, nurse was at was at the bedside "what is going on with me "I explained to her the condition as far as the stroke Patient speech today sounds more clear to me We will start controlling blood pressure today after 2 days of permissive hypertension Objective Vitals Vital Signs Date Time Temp Pulse Resp B/P (MAP) Pulse Ox O2 Delivery O2 Flow Rate FiO2 04/09/18 08:07 97.8 78 17 174/84 (114) 96 04/09/18 04:00 98.0 80 16 178/80 (112) 98 04/09/18 00:00 97.9 76 18 175/80 (111) 96 04/08/18 20:15 98.0 83 19 188/84 (118) 98 04/08/18 16:30 86 04/08/18 16:07 97.8 75 18 174/90 (118) 100 I/O 04/08/18 04/08/18 04/08/18 04/09/18 04/09/18 04/09/18 07:00 15:00 23:00 07:00 15:00 23:00 Intake Total 1520 ml 500 ml Output Total 250 ml Balance -250 ml 1520 ml 500 ml Intake Oral 1520 ml 500 ml Output Urine Total 250 ml # Voids 3 1 5 3 # Bowel Movements 0 0 Result Diagram: 04/08/18 1528 04/09/18 0636 Objective Remarks GENERAL: This is a well-nourished, well-developed patient, in no apparent distress. CARDIOVASCULAR: RRR, no gallops, or rubs. RESPIRATORY: crackles R base GASTROINTESTINAL: Abdomen soft, non-tender, nondistended. Positive bowel sounds MUSCULOSKELETAL: Extremities without clubbing, cyanosis, or edema. Pedal pulses appreciated NEUROLOGICAL: Awake and alert but not coherent. Moves all extremity. Normal speech.no focal neurological deficit A/P Assessment and Plan 04/06: Awaiting report of the MRI, LDL is significantly elevated patient need high intensity I will make her Pravachol dose 80 mg, also creatinine is increasing will avoid nephrotoxin, monitor CHAI 04/07:MRI showing small infarction in the left cortical , MRA diffuse carotid disease right and the left, appreciate neurology recommendation continue permissive hypertension for about 1 day or 2, continue Plavix and aspirin and follow 2D echo 04/08: MRI w renee showed left small parietal lobe infarct , neurology ff , continue permissive htn for 1 more day cough w sob , R basilar crackles >cxr now , cbc uncontrolled DM >>add levemir 5u bid , prebrandial novolog 2u tid 04/09: Initiating blood pressure control I added Norvasc 5 mg she is on chlorthalidone every other day, monitor closely, Blood sugars still uncontrolled, we will increase Levemir to 8 units twice daily , continue preprandial and Accu-Chek with insulin sliding scale A/P: 1. CVA versus TIA Head CT with no acute intracranial abnormality MRI/MRA brain pending Carotid ultrasound pending Echo pending Neurology consulted, appreciate recommendations 2. Diabetes mellitus Sliding-scale insulin Monitor blood glucose 3. Hypertension/hyperlipidemia/CAD Continue home medications 4. DEVON Continue hydration, avoid nephrotoxin, monitor BMP FEN NPO NS at 70 cc/hr Electrolytes: monitor and replete prn Heparin Discharge Planning When blood pressure control and cleared by neurology Trevor Palacio MD Apr 09, 2018 13:33
--- NOTE | 2018-04-09 14:09 | HHI.FF ---
Face to Face Verification Diagnosis: (1) CVA (cerebral vascular accident) (2) Slurred speech (3) Type 2 diabetes mellitus (4) Obesity (5) Hypertension (6) Syncope Physical Therapy Order: Evaluate and Treat Occupational Therapy Order: Evaluate and Treat Home Health Nursing Order: Medical education Diabetic education Nursing assessment with vital signs I have seen patient Akilah Mon on 04/09/18. My clinical findings support the need for the requested home health care services because: Ltd mobility - disease progression Limited ability to care for self I certify that my clinical findings support that this patient is homebound because: Unsteady gait/balance Unsafe to leave home unassisted Trevor Palacio MD Apr 09, 2018 14:09
[2018-04-09] MEDS: amLODIPine BESYLATE 5 MG TAB PO SCH (14:30)
[2018-04-10] VITALS: BP 140/75; PULSE 80; RESP 18; TEMP 98.8; O2SAT 97
[2018-04-10 04:30] VITALS: BP 148/76; PULSE 80; RESP 20; TEMP 97.6; O2SAT 98
[2018-04-10] MEDS: SODIUM CHLOR 0.9% 1000 ML INJ 1,000 ML IV SCH (05:27)
[2018-04-10] MEDS: HEPARIN SODIUM - SQ 10,000 UNITS/ML VIAL SQ SCH (05:28)
[2018-04-10] MEDS: LEVOTHYROXINE SODIUM 25 MCG TAB PO SCH (05:28)
[2018-04-10 07:43] VITALS: BP 127/78; PULSE 77; RESP 20; TEMP 98.3; O2SAT 93
[2018-04-10] MEDS: CHLORTHALIDONE 50 MG TAB PO SCH (08:36)
[2018-04-10] MEDS: PRAVASTATIN SOD 80 MG TAB PO SCH (08:36)
[2018-04-10] MEDS: ASPIRIN 325 MG TAB PO SCH (08:36)
[2018-04-10] MEDS: amLODIPine BESYLATE 5 MG TAB PO SCH (08:36)
[2018-04-10] MEDS: CLOPIDOGREL 75 MG TAB PO SCH (08:37)
[2018-04-10] MEDS: INSULIN ASPART SUPPLEMENTAL SCALE SQ SCH (08:39)
[2018-04-10] MEDS: SODIUM CHLORIDE 0.9% FLUSH 10 ML FLUSH IV FLUSH SCH (08:39)
[2018-04-10] MEDS: INSULIN HUMAN NPH 1,000 UNITS/10 ML VIAL SQ SCH (08:39)
[2018-04-10] MEDS: INSULIN DETEMIR 100 UNITS/ML VIAL SQ SCH (08:40)
[2018-04-10] MEDS ORDERED: ASA325 PO (09:05)
[2018-04-10] MEDS ORDERED: NOVONP2 SQ (09:05)
[2018-04-10] MEDS ORDERED: PRAV80TA PO (09:05)
[2018-04-10] MEDS ORDERED: LEVEMIR SQ (09:05)
[2018-04-10] MEDS ORDERED: NOVOLOGSS SQ (09:05)
[2018-04-10] MEDS ORDERED: PLAV75TA29 PO (09:05)
[2018-04-10] MEDS ORDERED: AMLO5 PO (09:05)
[2018-04-10 10:39] VITALS: PULSE 82
--- NOTE | 2018-04-10 10:54 | HHI.PR ---
Subjective Remarks Patient doing well stable no event overnight She is requesting more physical therapy and speech therapy "I love to talk " Objective Vitals Vital Signs Date Time Temp Pulse Resp B/P (MAP) Pulse Ox O2 Delivery O2 Flow Rate FiO2 04/10/18 10:39 82 04/10/18 07:43 98.3 77 20 127/78 (94) 93 04/10/18 04:30 97.6 80 20 148/76 (100) 98 04/10/18 00:00 98.8 80 18 140/75 (96) 97 04/09/18 21:45 97.9 88 17 135/74 (94) 96 04/09/18 19:49 89 04/09/18 16:07 98.3 86 18 128/74 (92) 95 04/09/18 13:00 88 04/09/18 12:07 98.1 91 19 139/84 (102) 99 I/O 04/09/18 04/09/18 04/09/18 04/10/18 04/10/18 04/10/18 07:00 15:00 23:00 07:00 15:00 23:00 Intake Total 500 ml 1475 ml 1977 ml Balance 500 ml 1475 ml 1977 ml Intake Oral 500 ml 1475 ml 700 ml IV Total 1277 ml # Voids 3 2 3 # Bowel Movements 0 0 0 Result Diagram: 04/08/18 1528 04/09/18 0636 Objective Remarks GENERAL: This is a well-nourished, well-developed patient, in no apparent distress. CARDIOVASCULAR: RRR, no gallops, or rubs. RESPIRATORY: crackles R base GASTROINTESTINAL: Abdomen soft, non-tender, nondistended. Positive bowel sounds MUSCULOSKELETAL: Extremities without clubbing, cyanosis, or edema. Pedal pulses appreciated NEUROLOGICAL: Awake and alert but not coherent. Moves all extremity. Normal speech.no focal neurological deficit A/P Assessment and Plan 04/06: Awaiting report of the MRI, LDL is significantly elevated patient need high intensity I will make her Pravachol dose 80 mg, also creatinine is increasing will avoid nephrotoxin, monitor CHAI 04/07:MRI showing small infarction in the left cortical , MRA diffuse carotid disease right and the left, appreciate neurology recommendation continue permissive hypertension for about 1 day or 2, continue Plavix and aspirin and follow 2D echo 04/08: MRI w renee showed left small parietal lobe infarct , neurology ff , continue permissive htn for 1 more day cough w sob , R basilar crackles >cxr now , cbc uncontrolled DM >>add levemir 5u bid , prebrandial novolog 2u tid 04/09: Initiating blood pressure control I added Norvasc 5 mg she is on chlorthalidone every other day, monitor closely, Blood sugars still uncontrolled, we will increase Levemir to 8 units twice daily , continue preprandial and Accu-Chek with insulin sliding scale 04/10: Doing well stable blood pressure and blood sugar in a better controlled today will proceed with discharge with home health care per PT recommendation I also discussed with speech therapy they recommended regular diet but to continue outpatient speech therapy A/P: 1. CVA versus TIA Head CT with no acute intracranial abnormality MRI/MRA brain pending Carotid ultrasound pending Echo pending Neurology consulted, appreciate recommendations 2. Diabetes mellitus Sliding-scale insulin Monitor blood glucose 3. Hypertension/hyperlipidemia/CAD Continue home medications 4. DEVON Continue hydration, avoid nephrotoxin, monitor BMP FEN NPO NS at 70 cc/hr Electrolytes: monitor and replete prn Heparin Discharge Planning When blood pressure control and cleared by neurology Trevor Palacio MD Apr 10, 2018 10:54
--- NOTE | 2018-04-10 13:04 | HHI.DS ---
Discharge Summary Admission Date April 05, 2018 at 22:07 Discharge Date: Apr 10, 2018 Admitting Diagnosis CVA, Slurred Speech (1) CVA (cerebral vascular accident) ICD Code: I63.9 - Cerebral infarction, unspecified (2) Type 2 diabetes mellitus ICD Code: E11.9 - Type 2 diabetes mellitus without complications Status: Acute (3) Obesity ICD Code: E66.9 - Obesity, unspecified Status: Acute (4) Hypertension ICD Code: I10 - Essential (primary) hypertension Status: Acute (5) Syncope ICD Code: R55 - Syncope and collapse (6) Atypical chest pain ICD Code: R07.89 - Other chest pain Status: Acute Procedures See below Brief History - From Admission 72-year-old female with a past medical history significant for diabetes mellitus , coronary artery disease, hypertension and hyperlipidemia presents the emergency department for the evaluation of slurred speech. The patient states that her symptoms started around 4 PM when she was eating dinner. She states she was just not feeling right and called her sister around 6 PM. The patient complains of numbness around her mouth and in her right hand with a strange sensation in her left leg. No lateralizing signs/symptoms. Denies chest pain and shortness of breath. No abdominal pain. No nausea/vomiting/diarrhea. No fevers/chills. CBC/BMP: 04/08/18 1528 04/09/18 0636 Significant Findings Laboratory Tests Test 04/07/18 14:08 04/08/18 06:22 04/08/18 15:28 04/09/18 06:36 Blood Urea Nitrogen 27 MG/DL (7-18) 30 MG/DL (7-18) 28 MG/DL (7-18) Creatinine 1.25 MG/DL (0.50-1.00) 1.18 MG/DL (0.50-1.00) 1.16 MG/DL (0.50-1.00) Random Glucose 238 MG/DL (74-106) 208 MG/DL (74-106) 210 MG/DL (74-106) Estimat Glomerular Filtration Rate 51 ML/MIN (>89) 55 ML/MIN (>89) 56 ML/MIN (>89) Platelet Count 146 TH/MM3 (150-450) Monocytes (%) (Auto) 8.2 % (0.0-8.0) PE at Discharge GENERAL: This is a well-nourished, well-developed patient, in no apparent distress. CARDIOVASCULAR: RRR, no gallops, or rubs. RESPIRATORY: crackles R base GASTROINTESTINAL: Abdomen soft, non-tender, nondistended. Positive bowel sounds MUSCULOSKELETAL: Extremities without clubbing, cyanosis, or edema. Pedal pulses appreciated NEUROLOGICAL: Awake and alert but not coherent. Moves all extremity. Normal speech.no focal neurological deficit Hospital Course 72 years old female admitted for CVA neurology consulted, full CVA workup has been done patient is diabetic and has hypertension hyperlipidemia history of coronary artery disease, initially also admitted with DEVON. Placed on IV fluid permissive hypertension, neurology consulted as mentioned above MRI showed small cortical infarction on the left. PT OT and speech therapy consulted as well patient to be discharged with home health care, I discussed with PT and speech therapist Pt Condition on Discharge: Fair Discharge Disposition: Disch w/ Home Health Serv Discharge Time: > 30 minutes Discharge Instructions DIET: Follow Instructions for: Heart Healthy Diet, Diabetic Diet Activities you can perform: See Additionl Instruction Other Activity Instructions: Per PT Follow up Referrals: Neurology - 1 Week with Lane Lay MD PhD PCP Follow-up New Medications: Amlodipine (Norvasc) 5 Mg Tab 5 MG PO DAILY for htn, #30 TAB Aspirin (Px Aspirin) 325 Mg Tab 325 MG PO DAILY for cva, #30 TAB Clopidogrel (Plavix) 75 Mg Tab 75 MG PO DAILY for cva, #30 TAB Insulin Aspart Inj (Novolog Inj) 100 Unit/Ml Inj 1 UNIT SQ ACHS for dm for 30 Days, INJECTION Insulin Detemir Inj (Levemir Inj) 1,000 unit/ 10 ML Vial 10 UNITS SQ Q12HR for dm for 30 Days, INJECTION Do not mix with any other Insulin. Insulin Human NPH Inj (Novolin N Inj) 1,000 Unit/10 Ml Vial 2 UNITS SQ TIDAC for dm for 30 Days, INJECTION Pravastatin (Pravachol) 80 Mg Tab 80 MG PO DAILY for hld, #30 TAB Continued Medications: Chlorthalidone (Chlorthalidone) 25 Mg Tab 25 MG PO EVERY OTHER DAY, TAB 0 Refills Levothyroxine (Levothyroxine) 25 Mcg Tab 25 MCG PO DAILY for Thyroid, #30 TAB 0 Refills Trevor Palacio MD Apr 10, 2018 13:04
== END 2018-04-10 12:45 | disposition home health service (06) | DRG 65 ==
LOC: NEPE 19:19 → NEDA 20:26 → OBSVTOIN 22:07 → N05B 04-06 00:16
PROVIDERS: ADMIT Hospitalist; ATTEND Hospitalist
DX: I63.9 Cerebral infarction, unspecified (principal); N17.9 Acute kidney failure, unspecified; E11.65 Type 2 diabetes mellitus with hyperglycemia; Z79.4 Long term (current) use of insulin; R47.1 Dysarthria and anarthria; I10 Essential (primary) hypertension; E66.9 Obesity, unspecified; Z68.34 Body mass index [BMI] 34.0-34.9, adult; I25.10 Atherosclerotic heart disease of native coronary artery without angina pectoris; E78.5 Hyperlipidemia, unspecified; Z79.82 Long term (current) use of aspirin; Z86.73 Personal history of transient ischemic attack (TIA), and cerebral infarction without residual deficits; R05 Cough
CPT/HCPCS: 70450; 70544; 70551; 70553; 71045; 80048; 80061; 80307; 81001; 82550; 82948; 83036; 84484; 85025; 85384; 85610; 85730; 86850; 86900; 86901; 93005; 93306; 93880; A9579; J1644; J1815; J7030

== ENCOUNTER 2018-04-20 12:36 | Emergency (ER) | payer MEDICARE ==
[~2018-04-20 12:36] MED LIST changes: +AMLO5 PO; +ASA325 PO; +LEVEMIR SQ; -LISI10TA3 PO; +NOVOLOGSS SQ; +NOVONP2 SQ; +PLAV75TA29 PO; +PRAV80TA PO
[2018-04-20 13:13] VITALS: BP 121/72; PULSE 76; RESP 17; TEMP 97.8; O2SAT 96
[2018-04-20] MEDS ORDERED: SODIUM CHLORIDE 0.9% FLUSH 10 ML FLUSH IVF PRN (14:15)
--- NOTE | 2018-04-20 14:17 | PD ---
HPI Chief Complaint: Numbness/Tingling Time Seen by Provider: 14:01 Travel History International Travel<30 days: No Contact w/Intl Traveler<30days: No Traveled to known affect area: No History of Present Illness HPI 72-year-old female with PMH of DM, recent CVA presents to the ED for evaluation of right sided facial and scalp tingling. Onset at rest ~11am today. She denies headache, dizziness, vision changes, unilateral weakness of the extremities. Endorses mild difficulties with speech since last stroke, unchanged today. She denies chest pain, palpitations, shortness of breath, abdominal pain, nausea, vomiting, dysuria. Patient states that these symptoms are similar to the symptoms she had prior to her last CVA diagnosis. She endorses compliance with daily Plavix and aspirin. PFSH Past Medical History Hx Anticoagulant Therapy: Yes Anxiety: Yes Depression: Yes Heart Rhythm Problems: No Cancer: No Cardiac Catheterization: Yes (thinks possibly) Cardiovascular Problems: Yes High Cholesterol: Yes Chest Pain: Yes Congestive Heart Failure: No Cerebrovascular Accident: Yes Coronary Artery Disease: Yes Diabetes: Yes Diminished Hearing: No Endocrine: Yes GERD: Yes Glaucoma: Yes Genitourinary: No Hepatitis: No Hiatal Hernia: Yes Heparin Induced Thrombocytopen: No Hypertension: Yes Musculoskeletal: No Neurologic: Yes (NEUROPATHY LEGS BILATERALY ) Psychiatric: No Reproductive: No Respiratory: No ("NOT THAT I KNOW OF") Renal Failure: Yes Sickle Cell Disease: No Thyroid Disease: Yes Menopausal: Yes Past Surgical History Abdominal Surgery: Yes (CHOLECYSTECTOMY) Cholecystectomy: Yes Coronary Artery Bypass Graft: No Coronary Stent: Yes (says yes "back in the 70's") Eye Surgery: Yes (LASER SURGERY BOTH EYES,CATARACT SX RIGHT EYE) Gynecologic Surgery: Yes (HYSTERECTOMY) Hysterectomy: Yes Pacemaker: No Other Surgery: Yes (erin,hysterectomy) Social History Alcohol Use: No Tobacco Use: No Substance Use: No Allergies-Medications (Allergen,Severity, Reaction): Uncoded Allergies: DYE (Allergy, Unknown, DYE GIVEN TO HER BY DR FRAZIER-PT WILL FIND OUT NAME OF DYE , 10/18/17) 08-19-09 "iv dye", "throat swelling, itching" Reported Meds & Prescriptions Reported Meds & Active Scripts Active Novolog Inj (Insulin Aspart) 100 Unit/Ml Inj 1 Unit SQ ACHS 30 Days Novolin N Inj (Insulin Human NPH) 1,000 Unit/10 Ml Vial 2 Units SQ TIDAC 30 Days Levemir Inj (Insulin Detemir) 1,000 unit/ 10 ML Vial 10 Units SQ Q12HR 30 Days Do not mix with any other Insulin. Px Aspirin (Aspirin) 325 Mg Tab 325 Mg PO DAILY Norvasc (Amlodipine Besylate) 5 Mg Tab 5 Mg PO DAILY Pravachol (Pravastatin) 80 Mg Tab 80 Mg PO DAILY Plavix (Clopidogrel Bisulfate) 75 Mg Tab 75 Mg PO DAILY Reported Pravastatin 40 Mg Tab 40 Mg PO DAILY Chlorthalidone 25 Mg Tab 25 Mg PO EVERY OTHER DAY Levothyroxine (Levothyroxine Sodium) 25 Mcg Tab 25 Mcg PO DAILY Vitamin D-3 (Cholecalciferol) 1,000 Unit Cap 1,000 Units PO DAILY Humalog Inj (Insulin Human Lispro) 1,000 Unit/10 Ml Vial 15 Units SQ TIDAC Aspirin 81 Mg Chew 81 Mg PO DAILY Review of Systems Except as stated in HPI: all other systems reviewed are Neg Physical Exam Narrative GENERAL: Well-nourished, well-developed pleasant -Monegas[place] female no acute distress. SKIN: Focused skin assessment warm/dry. HEAD: Normocephalic. Atraumatic. EYES: No scleral icterus. No injection or drainage. PERRLA. EOMI. NECK: Supple, trachea midline. No JVD or lymphadenopathy. CARDIOVASCULAR: Regular rate and rhythm without murmurs, gallops, or rubs. RESPIRATORY: Breath sounds clear and equal bilaterally. No accessory muscle use. GASTROINTESTINAL: Abdomen soft, non-tender, nondistended. Active bowel sounds. MUSCULOSKELETAL: No cyanosis, or edema. NEUROLOGICAL: Awake and alert. Cranial nerves II through XII intact. Motor and sensory grossly within normal limits. Five out of 5 muscle strength in all muscle groups. Mildly slurred speech. BACK: Nontender without obvious deformity. No CVA tenderness. Data Data Last Documented VS Vital Signs Date Time Temp Pulse Resp B/P (MAP) Pulse Ox O2 Delivery O2 Flow Rate FiO2 04/20/18 14:17 98 Room Air 04/20/18 13:13 97.8 76 17 121/72 (88) Orders Orders Electrocardiogram (04/20/18 14:13) Prothrombin Time / Inr (Pt) (04/20/18 14:13) Act Partial Throm Time (Ptt) (04/20/18 14:13) Complete Blood Count With Diff (04/20/18 14:13) Comprehensive Metabolic Panel (04/20/18 14:13) Creatine Kinase (Cpk) (04/20/18 14:13) Troponin I (04/20/18 14:13) Urinalysis - C+S If Indicated (04/20/18 14:13) Ct Brain W/O Iv Contrast(Rout) (04/20/18 14:13) Ecg Monitoring (04/20/18 14:13) Iv Access Insert/Monitor (04/20/18 14:13) Oximetry (04/20/18 14:13) Sodium Chloride 0.9% Flush (Ns Flush) (04/20/18 14:15) Mri Brain W/O Contrast (04/20/18 15:45) Urine Culture (04/20/18 16:15) Ed Discharge Order (04/20/18 17:53) Labs Laboratory Tests Test 04/20/18 13:25 04/20/18 16:15 White Blood Count 7.3 TH/MM3 Red Blood Count 4.29 MIL/MM3 Hemoglobin 12.4 GM/DL Hematocrit 38.1 % Mean Corpuscular Volume 88.6 FL Mean Corpuscular Hemoglobin 28.8 PG Mean Corpuscular Hemoglobin Concent 32.5 % Red Cell Distribution Width 14.5 % Platelet Count 197 TH/MM3 Mean Platelet Volume 10.3 FL Neutrophils (%) (Auto) 65.0 % Lymphocytes (%) (Auto) 25.5 % Monocytes (%) (Auto) 6.2 % Eosinophils (%) (Auto) 2.6 % Basophils (%) (Auto) 0.7 % Neutrophils # (Auto) 4.8 TH/MM3 Lymphocytes # (Auto) 1.9 TH/MM3 Monocytes # (Auto) 0.5 TH/MM3 Eosinophils # (Auto) 0.2 TH/MM3 Basophils # (Auto) 0.1 TH/MM3 CBC Comment DIFF FINAL Differential Comment Prothrombin Time 10.0 SEC Prothromb Time International Ratio 1.0 RATIO Activated Partial Thromboplast Time 34.3 SEC Blood Urea Nitrogen 40 MG/DL Creatinine 1.54 MG/DL Random Glucose 67 MG/DL Total Protein 7.3 GM/DL Albumin 3.4 GM/DL Calcium Level 9.0 MG/DL Alkaline Phosphatase 108 U/L Aspartate Amino Transf (AST/SGOT) 17 U/L Alanine Aminotransferase (ALT/SGPT) 25 U/L Total Bilirubin 0.3 MG/DL Sodium Level 142 MEQ/L Potassium Level 4.7 MEQ/L Chloride Level 105 MEQ/L Carbon Dioxide Level 29.1 MEQ/L Anion Gap 8 MEQ/L Estimat Glomerular Filtration Rate 40 ML/MIN Total Creatine Kinase 134 U/L Troponin I LESS THAN 0.02 NG/ML Urine Color Straw Urine Turbidity CLEAR Urine pH 7.0 Urine Specific [place] 1.010 Urine Protein 30 mg/dL Urine Glucose (UA) NEG mg/dL Urine Ketones NEG mg/dL Urine Occult Blood NEG Urine Nitrite NEG Urine Bilirubin NEG Urine Leukocyte Esterase NEG Urine RBC LESS THAN 1 /hpf Urine WBC 1 /hpf Urine Squamous Epithelial Cells <1 /hpf Urine Bacteria RARE /hpf Microscopic Urinalysis Comment CATH-CULTURE IND MDM Medical Decision Making Medical Screen Exam Complete: Yes Emergency Medical Condition: Yes Differential Diagnosis Paresthesia versus CVA versus metabolic derangement versus hyperglycemia versus hypertension versus other Narrative Course 72-year-old female with PMH of DM, recent CVA presents to the ED for evaluation of right sided facial and scalp tingling. Onset at rest ~11am today. Patient is afebrile, BP 121/72 on presentation. On exam there are no focal neuro deficits. There is a mild slurred speech but according to chart review this is chronic. IV was established. EKG rate 71, sinus rhythm. SD interval 164, QRS 84, QTc 432 ms. Normal axis. No acute ST changes. Reviewed by Dr. Mckenzie Cardiac enzymes negative 1. CT brain: Deep white matter infarct in the left ybarra radiata which was not seen on previous patient study. Addendum reads comparison to her recent MRI confirms the presence of an evolving infarct in the deep white matter of the left cerebral hemisphere. CBC: No concerning abnormalities. INR: 1.0. CMP: BUN 40, creatinine 1.54. UA: Rare bacteria, culture pending. I spoke with Dr. Lay, on-call neurologist. He is familiar with the patient. He recommends stat MRI of the brain without contrast. If this is negative he feels that the patient is safe for discharge and can see her in the outpatient setting. MRI brain: Stable 1 cm lacunar style infarction involving the left ybarra radiata. No hemorrhage or mass-effect. Small chronic vessel ischemic change per radiology read. I discussed the patient, workup and plan with Dr. Mckenzie. He is in agreement with discharge. I discussed the results of the workup with the patient and her daughter at bedside. They are relieved by today's findings. Patient's instructed to resume at home medications, call Dr. Lay's office tomorrow for a follow-up appointment, return for worsening symptoms. The patient and her daughter indicated understanding of the instructions and are agreeable with the care plan. The patient is stable and discharged home. Diagnosis Primary Impression: Paresthesias/numbness Referrals: Lane Lay MD PhD Additional Instructions: Rest, hydrate. Resume at home medications as previously prescribed. Follow-up with Dr. Lay this week. Return to the ED for worsening symptoms or any urgent or emergent medical condition. Disposition: 01 DISCHARGE HOME Condition: Stable Kamille Payne Apr 20, 2018 14:17
--- NOTE | 2018-04-20 14:46 | RADRPT ---
EXAM DATE: 04/20/2018 2:39 PM EDT AGE/SEX: 72 years / Female INDICATIONS: Patient complains of right side face numbness. Patient has stroke one week ago. CLINICAL DATA: This is the patient's initial encounter. Patient reports that signs and symptoms have been present for 1 day and indicates a pain score of 0/10. MEDICAL/SURGICAL HISTORY: Cardiovascular disease. Hypertension. Renal disease. diabetic. None. RADIATION DOSE: 36.25 CTDI (mGy) [place] [facility] [place]. . TECHNIQUE: CT of the head without contrast. Using automated exposure control and adjustment of the mA and/or kV according to patient size, radiation dose was kept as low as reasonably achievable to ob tain optimal diagnostic quality images. FINDINGS: Cerebrum: A 1.2 cm hypodensity has developed centrally within the deep white matter of the left cere bral hemisphere. This was not seen on previous study and is characteristic of a deep white matter inf arct. There is no significant mass effect, surrounding edema or evidence of hemorrhage. Posterior Fossa: The cerebellum and brainstem are intact. The 4th ventricle is midline. The cerebe llopontine angle is unremarkable. Extracranial: The visualized portion of the orbits is intact. Skull: The calvaria is intact. No evidence of skull fracture. CONCLUSION: 1. Deep white matter infarct in the left ybarra radiata which was not seen on the patient's previous study. 2. No evidence of significant edema, mass effect or hemorrhage. 3. Otherwise stable evaluation of the brain. Electronically signed by: Arnulfo Morales MD 04/20/2018 2:45 PM EDT
[2018-04-20 16:04] LABS: AUTOMATED NEUTROPHIL # 4.8 TH/MM3 (1.8-7.7); BASOPHIL # 0.1 TH/MM3 (0-0.2); BASOPHIL % 0.7 % (0.0-2.0); EOSINOPHIL # 0.2 TH/MM3 (0-0.4); EOSINOPHIL % 2.6 % (0.0-4.0); HEMATOCRIT 38.1 % (35.0-46.0); HEMOGLOBIN 12.4 GM/DL (11.6-15.3); LYMPH % 25.5 % (9.0-44.0); LYMPHOCYTE # 1.9 TH/MM3 (1.0-4.8); MEAN CELL VOLUME 88.6 FL (80.0-100.0); MEAN CORPUSCULAR HEMOGLOBIN 28.8 PG (27.0-34.0); MEAN CORPUSCULAR HGB CONC 32.5 % (32.0-36.0); MEAN PLATELET VOLUME 10.3 FL (7.0-11.0); MONO % 6.2 % (0.0-8.0); MONOCYTE # 0.5 TH/MM3 (0-0.9); PLATELET COUNT 197 TH/MM3 (150-450); RED BLOOD COUNT 4.29 MIL/MM3 (4.00-5.30); RED CELL DISTRIBUTION WIDTH 14.5 % (11.6-17.2); WHITE BLOOD COUNT 7.3 TH/MM3 (4.0-11.0)
[2018-04-20 16:20] LABS: ALBUMIN 3.4 GM/DL (3.4-5.0); ALT (GPT) 25 U/L (10-53); AST (GOT) 17 U/L (15-37); BICARBONATE 29.1 MEQ/L (21.0-32.0); BLOOD UREA NITROGEN 40 MG/DL (7-18); CHLORIDE 105 MEQ/L (98-107); CREATININE 1.54 MG/DL (0.50-1.00); GLOMERULAR FILTRATION RATE 40 ML/MIN (>89); GLUCOSE,RANDOM 67 MG/DL (74-106); SODIUM (NA) 142 MEQ/L (136-145)
[2018-04-20 16:23] LABS: ALKALINE PHOSPHATASE 108 U/L (45-117); TOTAL BILIRUBIN ADULT 0.3 MG/DL (0.2-1.0); TOTAL PROTEIN 7.3 GM/DL (6.4-8.2); TROPONIN I LESS THAN 0.02 NG/ML (0.02-0.05)
[2018-04-20 16:43] LABS: BACTERIA, URINE RARE /hpf; BILIRUBIN, URINE NEG (NEG); BLOOD, URINE NEG (NEG); GLUCOSE,URINE NEG (NEG); KETONE, URINE NEG (NEG); NITRITE,URINE NEG (NEG); SQUAMOUS EPITHELIAL CELL URINE <1 /hpf (0-5); URINE COLOR Straw (YELLW/STRAW); URINE LEUKOCYTE ESTERASE NEG (NEG)
--- NOTE | 2018-04-20 17:47 | RADRPT ---
EXAM DATE: 04/20/2018 5:35 PM EDT AGE/SEX: 72 years / Female INDICATIONS: CVA. Abnormal CT. CLINICAL DATA: This is the patient's subsequent encounter. Patient reports that signs and symptoms h ave been present for 1 day and indicates a pain score of 0/10. MEDICAL/SURGICAL HISTORY: Hypertension. Diabetes mellitus type II. Hysterectomy. Cholecystect melvina. Coronary artery stent. [place] [facility] [place]/2018 and MRI of the brain 04/08/2018. . . TECHNIQUE: Multiplanar, multisequence examination of the brain was performed without contrast. FINDINGS: Cerebrum: The ventricles are normal for age. No evidence of midline shift, mass lesion, hemorrhage or acute infarction. No extraaxial fluid collections are seen. The pituitary gland and suprasellar cistern are normal in configuration. White Matter: Periventricular high FLAIR signal abnormality involving both cerebral hemispheres. An approximate 1 cm rounded focus of high FLAIR signal involving the left ybarra radiata. This shows res tricted diffusion. This is stable from the prior exams.. Posterior Fossa: The cerebellum and brainstem are intact. The 4th ventricle is midline. The cerebel lopontine angle is unremarkable. The cerebellar tonsils are normal in position. Diffusion Imaging: No focal areas of restricted diffusion are seen. No evidence of acute infarction . Extracranial: The visualized portions of the orbits and paranasal sinuses are unremarkable. CONCLUSION: 1. Stable 1 cm lacunar style infarction involving the left ybarra radiata. 2. No hemorrhage or mass effect. 3. Chronic small vessel ischemic change. Electronically signed by: Dre Guerrero MD 04/20/2018 5:46 PM EDT
--- NOTE | 2018-04-20 20:55 | EKG ---
Date Performed: 04/20/2018 Time Performed: 14:27:31 PTAGE: 72 years EKG: Sinus rhythm WITH SINUS ARRHYTHMIA NONSPECIFIC T-WAVE ABNORMALITY BORDERLINE ECG PREVIOUS TRACING : 04/05/2018 19.33 No significant change from previous tracing noted. DOCTOR: Gutierrez Snider Interpretating Date/Time 04/20/2018 20:53:49
== END 2018-04-20 18:20 | disposition home or self-care (01) ==
LOC: NEPC 12:36
DX: R20.2 Paresthesia of skin (principal); R20.0 Anesthesia of skin; R82.99 Other abnormal findings in urine; R94.31 Abnormal electrocardiogram [ECG] [EKG]; E11.9 Type 2 diabetes mellitus without complications; I10 Essential (primary) hypertension; E78.00 Pure hypercholesterolemia, unspecified; E07.9 Disorder of thyroid, unspecified; K21.9 Gastro-esophageal reflux disease without esophagitis; N19 Unspecified kidney failure; Z79.01 Long term (current) use of anticoagulants; Z79.4 Long term (current) use of insulin; Z86.79 Personal history of other diseases of the circulatory system; Z86.59 Personal history of other mental and behavioral disorders; Z86.69 Personal history of other diseases of the nervous system and sense organs; Z86.73 Personal history of transient ischemic attack (TIA), and cerebral infarction without residual deficits
CPT/HCPCS: 70450; 70551; 80053; 81001; 82550; 84484; 85025; 85610; 85730; 87086; 93005

== ENCOUNTER 2018-06-04 09:14 | Inpatient (IN) ==
[2018-06-04] MEDS ORDERED: Sod Chloride 0.9% Inj 1,000 ML IV.SIG ONE ×2 (10:10→13:00)
--- NOTE | 2018-06-04 10:51 | XR ---
EXAM DATE: 06/04/2018 10:36 AM EDT AGE/SEX: 72 years / Female INDICATIONS: Short of Breath and Facial numbness CLINICAL DATA: This is the patient's initial encounter. Patient reports that signs and symptoms have been present for 1 day and indicates a pain score of 0/10. MEDICAL/SURGICAL HISTORY: Diabetes mellitus type II. Hypertension. Stroke. Coronary artery st ent. Cholecystectomy. Hysterectomy. COMPARISON: [facility] – [place], CHEST SINGLE AP, 04/08/2018. . FINDINGS: Slight cardiomegaly has not changed. Slight opacity is present in right lower chest overlapping the c ardiac shadow questionable for slight consolidation. CONCLUSION: Slight cardiomegaly and questionable slight consolidation right lower lung. Electronically signed by: Silvino Carvajal MD 06/04/2018 10:49 AM EDT
[2018-06-04 10:58] LABS: Bilirubin,Urine Negative (Negative); Clarity,Urine Clear (Clear); Color,Urine Red (Yellw/Straw); Glucose,Urine (UA) 500 or Greater mg/dL (Negative); Leukocyte Esterase,Urine Negative (Negative); Mucus,Urine Few /lpf (Occasional); Nitrite,Urine Negative (Negative); Squamous Epithelial Cell,Urine <1 /hpf (0-5)
[2018-06-04 11:00] LABS: Baso % (Auto) 0.3 % (0.0-2.0); Eos % (Auto) 0.1 % (0.0-4.0); Hemoglobin 11.8 gm/dL (11.6-15.3); Lymph % (Auto) 9.3 % (9.0-44.0); Mean Corpuscular Hemoglobin 28.9 pg (27.0-34.0); Mean Corpuscular Volume 90.1 fL (80.0-100.0); Mean Platelet Volume 10.6 fL (7.0-11.0); Mono # (Auto) 0.6 th/mm3 (0.0-0.9); Mono % (Auto) 5.1 % (0.0-8.0); Neut # (Auto) 9.4 th/mm3 (1.8-7.7); Neut % (Auto) 85.2 % (16.0-70.0); Platelet Count 187 th/mm3 (150-450); Red Cell Distribution Width 14.3 % (11.6-17.2)
--- NOTE | 2018-06-04 11:02 | CT ---
EXAM DATE: 06/04/2018 10:45 AM EDT AGE/SEX: 72 years / Female INDICATIONS: Syncope last night, today has right side facial numbness CLINICAL DATA: This is the patient's initial encounter. Patient reports that signs and symptoms have been present for 1 day and indicates a pain score of 6/10. MEDICAL/SURGICAL HISTORY: Diabetes. Stroke. Hysterectomy. Cardiac cath RADIATION DOSE: 66.36 CTDI (mGy) COMPARISON: [facility], CT BRAIN W/O CONTRAST, 04/20/2018. [facility], MRI BRAIN W/O CONTRAST, 04/20/2018. [facility] , MRI BRAIN W & W/O CONTRAST, 04/08/2018. . TECHNIQUE: CT of the head without contrast. Using automated exposure control and adjustment of the mA and/or kV according to patient size, radiation dose was kept as low as reasonably achievable to ob tain optimal diagnostic quality images. DICOM format image data is available electronically for revi ew and comparison. FINDINGS: There is no evidence for intracranial hemorrhage, mass effect, mass lesions, or edema. The visualize d bony structures appear intact. Slight degree of brain atrophy is seen. Slight periventricular whit e matter changes are seen nonspecific mostly consistent with chronic small vessel ischemic changes. There are no signs of acute infarction for technique. There is old lacunar infarction in the left per iventricular white matter tracks not present on the study from 10/2017, however not significantly arnie nged since 04/2018. CONCLUSION: Slight chronic small vessel ischemic and atrophic changes and is stable area of lacunar type infarction left periventricular white matter tracks not significantly changed since 04/2018. Electronically signed by: Silvino Carvajal MD 06/04/2018 11:00 AM EDT
[2018-06-04 11:11] LABS: Albumin 3.3 g/dL (3.4-5.0); Anion Gap 7 meq/L (5-15); Aspartate Aminotransferase 27 U/L (15-37); Blood Urea Nitrogen 42 mg/dL (7-18); Calcium 8.8 mg/dL (8.5-10.1); Carbon Dioxide 25.1 meq/L (21.0-32.0); Chloride 109 meq/L (98-107); Glomerular Filtration Rate 40 mL/min (>89); Glucose,Random 357 mg/dL (74-106); Potassium 4.8 meq/L (3.5-5.1); Sodium 141 meq/L (136-145)
[2018-06-04 11:16] LABS: Alanine Aminotransferase 25 U/L (10-53); Alkaline Phosphatase 132 U/L (45-117); Total Protein 7.4 g/dL (6.4-8.2); Troponin I 0.04 ng/mL (0.02-0.05)
--- NOTE | 2018-06-04 12:41 | CT ---
EXAM DATE: 06/04/2018 12:34 PM EDT AGE/SEX: 72 years / Female INDICATIONS: Shortness of breath. CLINICAL DATA: This is the patient's initial encounter. Patient reports that signs and symptoms have been present for 1 day and indicates a pain score of 0/10. MEDICAL/SURGICAL HISTORY: Hepatitis C. Stroke. Diabetes. Hysterectomy. Coronary artery stent. RADIATION DOSE: 14.84 CTDI (mGy) COMPARISON: No prior exams available for comparison. TECHNIQUE: Multiple contiguous axial images were obtained through the chest without contrast. Image s were obtained in suspended respiration using multiple row detector helical technique. Using automa javi exposure control and adjustment of the mA and/or kV according to patient size, radiation dose was kept as low as reasonably achievable to obtain optimal diagnostic quality images. DICOM format imag e data is available electronically for review and comparison. FINDINGS: Slight parenchymal infiltrate is seen in the right midlung laterally most likely inflammatory process . Een in the right midlung laterally most likely inflammatory process. 4 to 5 mm in size most likely benign. There are tiny stones in the right kidney and there is an approximate 3.3 cm low attenuating mass in the right adrenal gland most likely an adenoma. There is no pleural effusion. No appreciable pathological adenopathy is seen within the mediastinum. Multiple old rib fractures are seen on the left. CONCLUSION: 1. Probable inflammatory process and pneumonia in right midlung. 2. Right adrenal mass most likely an adenoma. 3. Right renal stones. 4. Follow-up is suggested with noncontrast chest CT in 6 months. Electronically signed by: Silvino Carvajal MD 06/04/2018 12:40 PM EDT
[2018-06-04] MEDS ORDERED: Azithromycin Inj 500 MG in Sodium Chlor 0.9% Inj 250 ML IV.SIG ONE (13:26)
[2018-06-04] MEDS ORDERED: Dextrose 50% in Water 50 ML Vial IV.PUSH PRN ×2 (14:09→15:37)
[2018-06-04] MEDS ORDERED: Acetaminophen 325 MG Tablet PO PRN (14:13)
[2018-06-04] MEDS ORDERED: Bisacodyl 10 MG Supp RECTAL PRN (14:13)
--- NOTE | 2018-06-04 14:14 | ED ---
HPI General Chief Complaint: Syncope Stated Complaint: medical Time Seen by Provider: 06/04/18 10:00 Source: patient, family and old records reviewed Mode of arrival: EMS Limitations: no limitations History of Present Illness HPI narrative: and then she went back to sleep when she woke up this morning her sugar was markedly elevated and she noticed some facial tingling. Because she had a recent IN she was worried and came to the hospital for further evaluation.The patient is a 72-year-old female with history of diabetes hypertension hypothyroidism and kidney disease that had a recent CVA as well as CAD with stent placement that was brought to the emergency department due to difficulty controlling her sugar. Patient stated that her glucose was very low last night and they called 911 they gave her something to drink, in addition she reports that she had a syncopal episode. MD complaint: loss of consciousness Current symptoms: none Related Data Home Medications Medication Instructions Recorded Confirmed Humalog U-100 Insulin 14 units SUB-Q ACHS 06/04/18 06/04/18 amlodipine 10 mg PO DAILY 06/04/18 06/04/18 aspirin 325 mg PO DAILY 06/04/18 06/04/18 chlorthalidone 25 mg PO Q OTHER DAY 06/04/18 06/04/18 clopidogrel 75 mg PO DAILY 06/04/18 06/04/18 insulin glargine [Lantus U-100 60 units SUB-Q DAILY 06/04/18 06/04/18 Insulin] levothyroxine 25 mcg PO DAILY 06/04/18 06/04/18 potassium chloride 10 meq PO DAILY 06/04/18 06/04/18 pravastatin 40 mg PO DAILY 06/04/18 06/04/18 valsartan-hydrochlorothiazide 1 tab PO DAILY 06/04/18 06/04/18 Allergies Allergy/AdvReac Type Severity Reaction Status Date / Time No Known Drug Allergies Allergy Anaphylaxis Verified 06/04/18 14:12 DYE Allergy Severe DYE GIVEN Uncoded 06/04/18 10:[address] FRAZIER-PT WILL FIND OUT NAME OF DYE Review of Systems ROS Unobtainable All other systems reviewed negative except as stated in HPI [facility] Medical History Medical History Diabetes (Acute) Dizziness (Acute) High cholesterol (Acute) Hx of hysterectomy (Acute) Hypertension (Acute) Hypothyroidism (Acute) Stroke (Acute) Syncope (Acute) Surgical History Surgical History Hx of cardiac catheterization (Acute) Family History Family History Other CAD (coronary artery disease) Social History Social History Substance History: No History of Abuse Second Hand Smoke Exposure: No Smoking Status: Never smoker How Often Do You Have a Drink Containing Alcohol: Monthly or less Recent Travel in [facility] within the Last 8 Weeks: No Recent Out of Country Travel within the Last 8 Weeks: No Immunization History Tetanus Immunization: Unsure Hx Influenza Vaccine This Season: No Exam Narrative Exam Narrative: GENERAL: Awake alert and oriented in no distress SKIN: Focused skin assessment warm/dry. HEAD: Atraumatic. Normocephalic. EYES: Pupils equal and round. No scleral icterus. No injection or drainage. ENT: No nasal bleeding or discharge. Mucous membranes pink and moist. NECK: Trachea midline. No JVD. CARDIOVASCULAR: Regular rate and rhythm. No murmur appreciated. RESPIRATORY: No accessory muscle use. Clear to auscultation. Breath sounds equal bilaterally. GASTROINTESTINAL: Abdomen soft, non-tender, nondistended. Hepatic and splenic margins not palpable. MUSCULOSKELETAL: No obvious deformities. No clubbing. No cyanosis. No edema. NEUROLOGICAL: Awake and alert. No obvious cranial nerve deficits. Motor grossly within normal limits. Normal speech. PSYCHIATRIC: Appropriate mood and affect; insight and judgment normal. Course Hospital Course: initiate insulin treatment. Not septic not appearing toxic no lactic acidosis. just with fluids and we did notPatient was hydrated in the emergency department with improvement of her hyperglycemia. Worrisome findings for pneumonia on chest x-ray confirmed by CT. She was started on cefepime and Zithromax the fact that she had a recent hospitalization and was admitted for further evaluation. Her glucose did improve markedly. Head CT was unremarkable for acute intracranial process Initial Documented Vital Signs Temperature 98.5 F 06/04/18 09:19 Pulse Rate 81 06/04/18 09:19 Respiratory Rate 17 06/04/18 09:19 Blood Pressure 157/70 H 07/29/18 09:19 Pulse Oximetry 98 07/29/18 09:19 Last Documented Vital Signs Temperature 98.5 F 06/04/18 09:19 Pulse Rate 86 06/04/18 14:23 Respiratory Rate 17 06/04/18 14:23 Blood Pressure 151/73 H 06/04/18 13:00 Pulse Oximetry 99 06/04/18 13:00 Medical Decision Making MDM Narrative Medical decision making narrative: Patient with labile blood glucose levels likely secondary to pneumonia Lab Data Lab results reviewed: Yes I reviewed the patient's lab results. Result diagrams: 06/04/18 10:21 06/04/18 10:21 Lab Results 06/04/18 06/04/18 06/04/18 Range/Units 10:21 10:21 10:21 WBC (4.0-11.0) th/mm3 RBC (4.00-5.30) mil/mm3 Hgb (11.6-15.3) gm/dL Hct (35.0-46.0) % MCV (80.0-100.0) fL MCH (27.0-34.0) pg MCHC (32.0-36.0) % RDW (11.6-17.2) % Plt Count (150-450) th/mm3 MPV (7.0-11.0) fL Neut % (Auto) (16.0-70.0) % Lymph % (Auto) (9.0-44.0) % [place] % (Auto) (0.0-8.0) % Eos % (Auto) (0.0-4.0) % Baso % (Auto) (0.0-2.0) % Neut # (Auto) (1.8-7.7) th/mm3 Lymph # (Auto) (1.0-4.8) th/mm3 [place] # (Auto) (0.0-0.9) th/mm3 Eos # (Auto) (0.0-0.4) th/mm3 Baso # (Auto) (0.0-0.2) th/mm3 WBC Differential Differential Comment Sodium 141 (136-145) meq/L Potassium 4.8 (3.5-5.1) meq/L Chloride 109 H (98-107) meq/L Carbon Dioxide 25.1 (21.0-32.0) meq/L Anion Gap 7 (5-15) meq/L BUN 42 H (7-18) mg/dL Creatinine 1.56 H (0.50-1.00) mg/dL Estimated GFR 40 L (>89) mL/min POC Glucose (68-110) mg/dl Random Glucose 357 H (74-106) mg/dL Calcium 8.8 (8.5-10.1) mg/dL Total Bilirubin 0.2 (0.2-1.0) mg/dL AST 27 (15-37) U/L ALT 25 (10-53) U/L Alkaline Phosphatase 132 H (45-117) U/L Troponin I 0.04 (0.02-0.05) ng/mL B-Natriuretic Peptide 149 H (0-100) pg/mL Total Protein 7.4 (6.4-8.2) g/dL Albumin 3.3 L (3.4-5.0) g/dL Beta-Hydroxybutyric Acd 0.10 (0.00-0.39) mmol/L Urine Color Red (Yellw/Straw) Urine Clarity Clear (Clear) Urine pH 5.0 (5.0-8.5) Ur Specific [place] 1.010 (1.002-1.035) Urine Protein 100 H (Neg-Trace) mg/dL Urine Glucose (UA) 500 or greater (Negative) mg/dL Urine Ketones Negative (Negative) mg/dL Urine Occult Blood Small H (Negative) Urine Nitrate Negative (Negative) Urine Bilirubin Negative (Negative) Urine Urobilinogen Less than 2 (Less than 2) mg/dL Ur Leukocyte Esterase Negative (Negative) Urine RBC 1 (0-3) /hpf Urine WBC 1 (0-5) /hpf Ur Squamous Epith Cells <1 (0-5) /hpf Urine Mucus Few H (Occasional) /lpf Micro UA Comment Culture not ind Urine Culture Comments Culture not ind 06/04/18 06/04/18 06/04/18 Range/Units 10:21 14:07 17:41 WBC 11.0 (4.0-11.0) th/mm3 RBC 4.10 (4.00-5.30) mil/mm3 Hgb 11.8 (11.6-15.3) gm/dL Hct 37.0 (35.0-46.0) % MCV 90.1 (80.0-100.0) fL MCH 28.9 (27.0-34.0) pg MCHC 32.0 (32.0-36.0) % RDW 14.3 (11.6-17.2) % Plt Count 187 (150-450) th/mm3 MPV 10.6 (7.0-11.0) fL Neut % (Auto) 85.2 H (16.0-70.0) % Lymph % (Auto) 9.3 (9.0-44.0) % [place] % (Auto) 5.1 (0.0-8.0) % Eos % (Auto) 0.1 (0.0-4.0) % Baso % (Auto) 0.3 (0.0-2.0) % Neut # (Auto) 9.4 H (1.8-7.7) th/mm3 Lymph # (Auto) 1.0 (1.0-4.8) th/mm3 [place] # (Auto) 0.6 (0.0-0.9) th/mm3 Eos # (Auto) 0.0 (0.0-0.4) th/mm3 Baso # (Auto) 0.0 (0.0-0.2) th/mm3 WBC Differential . Differential Comment Auto diff final Sodium (136-145) meq/L Potassium (3.5-5.1) meq/L Chloride (98-107) meq/L Carbon Dioxide (21.0-32.0) meq/L Anion Gap (5-15) meq/L BUN (7-18) mg/dL Creatinine (0.50-1.00) mg/dL Estimated GFR (>89) mL/min POC Glucose 192 H 172 H (68-110) mg/dl Random Glucose (74-106) mg/dL Calcium (8.5-10.1) mg/dL Total Bilirubin (0.2-1.0) mg/dL AST (15-37) U/L ALT (10-53) U/L Alkaline Phosphatase (45-117) U/L Troponin I (0.02-0.05) ng/mL B-Natriuretic Peptide (0-100) pg/mL Total Protein (6.4-8.2) g/dL Albumin (3.4-5.0) g/dL Beta-Hydroxybutyric Acd (0.00-0.39) mmol/L Urine Color (Yellw/Straw) Urine Clarity (Clear) Urine pH (5.0-8.5) Ur Specific [place] (1.002-1.035) Urine Protein (Neg-Trace) mg/dL Urine Glucose (UA) (Negative) mg/dL Urine Ketones (Negative) mg/dL Urine Occult Blood (Negative) Urine Nitrate (Negative) Urine Bilirubin (Negative) Urine Urobilinogen (Less than 2) mg/dL Ur Leukocyte Esterase (Negative) Urine RBC (0-3) /hpf Urine WBC (0-5) /hpf Ur Squamous Epith Cells (0-5) /hpf Urine Mucus (Occasional) /lpf Micro UA Comment Urine Culture Comments Imaging Data Radiologist's impression: Chest X-Ray 06/04/18 10:10 CONCLUSION: Slight cardiomegaly and questionable slight consolidation right lower lung. Head CT 06/04/18 10:10 CONCLUSION: Slight chronic small vessel ischemic and atrophic changes and is stable area of lacunar type infarction left periventricular white matter tracks not significantly changed since 04/2018. Chest CT 06/04/18 11:22 CONCLUSION: 1. Probable inflammatory process and pneumonia in right midlung. 2. Right adrenal mass most likely an adenoma. 3. Right renal stones. 4. Follow-up is suggested with noncontrast chest CT in 6 months. Discharge Plan Discharge Disposition Patient Disposition: 30 Still Patient Discharge Condition Condition: Good Discharge Details Diagnosis: Hospital-acquired bacterial pneumonia, Syncope, Hyperglycemia Physicians Team ED Provider: Gui Foreman Primary Care Provider: UNKNOWN, Attending Provider: Venkatesh Peoples Other Providers: Robi Richard Status ED Status: Left Department Discharge Information Discharge Date/Time: 06/04/18 14:36
--- NOTE | 2018-06-04 15:58 | P.HP ---
History of Present Illness Primary Care Physician: UNKNOWN History of Present Illness: This is a 72-year-old female with a history of hypothyroidism, ckd stage 3, hypertension, diabetes mellitus, coronary artery disease status post stent in the distant past and CVA. She presents to the emergency department complaining of right facial numbness. States she woke up with tingling sensation on the right face. She was diagnosed with lacunar infarct with mild residual memory loss 2 months ago. She is on aspirin and Plavix which she has been taking. Denies fever, chills, nausea and focal weakness. Yesterday she also found herself on the floor does not remember what happened. She called 911 and was evaluated by EMS and was found to have hypoglycemia glucose of 60. She refused to be brought to the hospital. States she has been compliant with her diabetic medications no recent medical adjustment. She takes Lantus 60 units in the morning and Humalog 14 units preprandial. She has not skipped meals however yesterday it was her first time to get out of the house after having a stroke. In the emergency department, she was found to have right-sided pneumonia. Denies chills, shortness of breath and swallowing difficulty. She has had cough when she was on lisinopril which has resolved. She received IV cefepime and fluid bolus of 2 L. All other systems reviewed negative Inpatient Certification: I certify that the inpatient services were ordered in accordance with Medicare regulations governing the order. This includes certification that hospital inpatient services are reasonable and necessary and in the case of services not specified as inpatient-only under 42 CFR 419.22(n), that they are appropriately provided as inpatient services in accordance to with the 2-midnight benchmark under 43 CFR 412.3(e) Estimated Total Length of Stay (Days): 2 Plans for Post Hospital Care: Not yet determined Review of Systems All other systems reviewed negative except as stated in HPI PMFSH - History History Provided By: Patient - Medical History Medical History: Medical History (Last Updated 06/04/18 @ 10:01 by Keith Borrero) Diabetes Dizziness High cholesterol Hx of hysterectomy Hypertension Hypothyroidism Stroke Syncope - Surgical History Surgical History: Surgical History (Last Updated 06/04/18 @ 10:01 by Keith Borrero) Hx of cardiac catheterization - Family History Family History: Family History (Last Updated 06/04/18 @ 15:51 by Venkatesh Peoples MD) Other CAD (coronary artery disease) - Tobacco History Second Hand Smoke Exposure: No Smoking Status: Never smoker - Alcohol History How Often Do You Have a Drink Containing Alcohol: Monthly or less - Substance Use History Substance History: No History of Abuse - Travel History Recent Travel in the [place] Within the Last 8 Weeks: No Recent Travel Out of the Country Within the Last 8 Weeks: No - Immunization History Tetanus Immunization: Unsure Hx Influenza Vaccine This Season: No Medications and Allergies Active Medications: Active Medications Acetaminophen (Tylenol) 650 mg PO Q4H PRN PRN Reason: Temp > 100.4 Albuterol (Albuterol Neb (Prn)) 2.5 mg NEB Q8HR NEB PRN PRN Reason: SHORTNESS OF BREATH/WHEEZING Aspirin (Aspirin) 325 mg PO DAILY [facility] Bisacodyl (Dulcolax Supp) 10 mg RECTAL DAILY PRN PRN Reason: SEVERE CONSITIPATION Clopidogrel Bisulfate (Plavix) 75 mg PO DAILY [facility] Dextrose (D50w Vial) 50 ml IV.PUSH UNSCH PRN PRN Reason: PER HYPOGLYCEMIA PROTOCOL Enalaprilat (Vasotec Inj) 1.25 mg IV.PUSH Q4H PRN PRN Reason: For SBP > 220 or DBP > 120 Glucagon (Glucagon Inj) 1 mg OTHER PRN PRN PRN Reason: for Hypoglycemia Protocol Heparin Sodium (Porcine) (Heparin Inj) 5,000 units SQ Q12H [facility] Azithromycin 500 mg/ Sodium (Chloride) 250 mls @ 250 mls/hr IV.SIG Q24H [facility] Cefepime HCl 2,000 mg/ Sodium (Chloride) 100 mls @ 200 mls/hr IV.SIG Q8H [facility] Sodium Chloride (Ns Inj) 1,000 mls @ 70 mls/hr IV.CONT .[id number] [facility] Insulin Aspart (Novolog Insulin Correctional Sugar Inj) 0 unit SQ ACHS [facility]; Protocol Lactulose (Lactulose Liq) 30 ml PO DAILY PRN PRN Reason: SEVERE CONSITIPATION Levothyroxine Sodium (Synthroid) 25 mcg PO DAILY@0600 [facility] Miscellaneous (Pill Splitter) 1 each OTHER UNSCH [facility] Ondansetron HCl (Zofran Inj) 4 mg IV.PUSH Q6H PRN PRN Reason: NAUSEA OR VOMITING Pravastatin Sodium (Pravachol) 40 mg PO DAILY [facility] Senna/Docusate Sodium (Dot-Colace) 1 tab PO BID [facility] Sennosides (Senokot) 17.2 mg PO Q12H PRN PRN Reason: Moderate Constipation Sodium Chloride (Ns Flush) 2 ml IV.FLUSH PRN PRN PRN Reason: FLUSH AFTER USING IV ACCESS Sodium Chloride (Ns Flush) 2 ml IV.FLUSH BID [facility] Allergies Allergy/AdvReac Type Severity Reaction Status Date / Time No Known Drug Allergies Allergy Anaphylaxis Verified 06/04/18 14:12 DYE Allergy Severe DYE GIVEN Uncoded 06/04/18 10:[address] FRAZIER-PT WILL FIND OUT NAME OF DYE Home Medications Medication Instructions Recorded Confirmed Type Humalog U-100 Insulin 14 units SUB-Q ACHS 06/04/18 06/04/18 History amlodipine 10 mg PO DAILY 06/04/18 06/04/18 History aspirin 325 mg PO DAILY 06/04/18 06/04/18 History chlorthalidone 25 mg PO Q OTHER DAY 06/04/18 06/04/18 History clopidogrel 75 mg PO DAILY 06/04/18 06/04/18 History insulin glargine [Lantus U-100 60 units SUB-Q DAILY 06/04/18 06/04/18 History Insulin] levothyroxine 25 mcg PO DAILY 06/04/18 06/04/18 History potassium chloride 10 meq PO DAILY 06/04/18 06/04/18 History pravastatin 40 mg PO DAILY 06/04/18 06/04/18 History valsartan-hydrochlorothiazide 1 tab PO DAILY 06/04/18 06/04/18 History Exam Vital signs: Vital Signs 06/04/18 09:19 06/04/18 10:02 06/04/18 12:00 Temperature 98.5 F Pulse Rate 81 78 76 Respiratory Rate 17 20 Blood Pressure 157/70 H 153/70 H 142/66 H Pulse Oximetry 98 97 96 06/04/18 13:00 06/04/18 14:23 Temperature Pulse Rate 78 86 Respiratory Rate 18 17 Blood Pressure 151/73 H Pulse Oximetry 99 Intake & Output 06/03/18 06/04/18 06/04/18 18:59 06:59 18:59 Weight 91.626 kg Narrative: GENERAL: This is an obese, well-developed patient, in no apparent distress. SKIN: Warm and dry. HEAD: Atraumatic. Normocephalic. EYES: Pupils equal and round. No scleral icterus. No injection or drainage. ENT: No nasal bleeding or discharge. Mucous membranes pink and moist. NECK: Trachea midline. No JVD. CARDIOVASCULAR: Regular rate and rhythm. RESPIRATORY: No accessory muscle use. Clear to auscultation. Breath sounds equal bilaterally. GASTROINTESTINAL: Abdomen soft, non-tender, nondistended. MUSCULOSKELETAL: Extremities without clubbing, cyanosis, or edema. No obvious deformities. NEUROLOGICAL: Awake and alert. No obvious cranial nerve deficits. Motor grossly within normal limits. Five out of 5 muscle strength in the arms and legs. Normal speech. PSYCHIATRIC: Appropriate mood and affect; insight and judgment normal. Results - Labs CBC & Chem 7: 06/04/18 10:21 06/04/18 10:21 Labs: Laboratory Results - last 24 hr 06/04/18 06/04/18 06/04/18 10:21 10:21 10:21 WBC RBC Hgb Hct MCV MCH MCHC RDW Plt Count MPV Neut % (Auto) Lymph % (Auto) [place] % (Auto) Eos % (Auto) Baso % (Auto) Neut # (Auto) Lymph # (Auto) [place] # (Auto) Eos # (Auto) Baso # (Auto) WBC Differential Differential Comment Sodium 141 Potassium 4.8 Chloride 109 H Carbon Dioxide 25.1 Anion Gap 7 BUN 42 H Creatinine 1.56 H Estimated GFR 40 L POC Glucose Random Glucose 357 H Calcium 8.8 Total Bilirubin 0.2 AST 27 ALT 25 Alkaline Phosphatase 132 H Troponin I 0.04 B-Natriuretic Peptide 149 H Total Protein 7.4 Albumin 3.3 L Beta-Hydroxybutyric Acd 0.10 Urine Color Red Urine Clarity Clear Urine pH 5.0 Ur Specific [place] 1.010 Urine Protein 100 H Urine Glucose (UA) 500 or greater Urine Ketones Negative Urine Occult Blood Small H Urine Nitrate Negative Urine Bilirubin Negative Urine Urobilinogen Less than 2 Ur Leukocyte Esterase Negative Urine RBC 1 Urine WBC 1 Ur Squamous Epith Cells <1 Urine Mucus Few H Micro UA Comment Culture not ind Urine Culture Comments Culture not ind 06/04/18 06/04/18 10:21 14:07 WBC 11.0 RBC 4.10 Hgb 11.8 Hct 37.0 MCV 90.1 MCH 28.9 MCHC 32.0 RDW 14.3 Plt Count 187 MPV 10.6 Neut % (Auto) 85.2 H Lymph % (Auto) 9.3 [place] % (Auto) 5.1 Eos % (Auto) 0.1 Baso % (Auto) 0.3 Neut # (Auto) 9.4 H Lymph # (Auto) 1.0 [place] # (Auto) 0.6 Eos # (Auto) 0.0 Baso # (Auto) 0.0 WBC Differential . Differential Comment Auto diff final Sodium Potassium Chloride Carbon Dioxide Anion Gap BUN Creatinine Estimated GFR POC Glucose 192 H Random Glucose Calcium Total Bilirubin AST ALT Alkaline Phosphatase Troponin I B-Natriuretic Peptide Total Protein Albumin Beta-Hydroxybutyric Acd Urine Color Urine Clarity Urine pH Ur Specific [place] Urine Protein Urine Glucose (UA) Urine Ketones Urine Occult Blood Urine Nitrate Urine Bilirubin Urine Urobilinogen Ur Leukocyte Esterase Urine RBC Urine WBC Ur Squamous Epith Cells Urine Mucus Micro UA Comment Urine Culture Comments - Imaging Impressions Chest X-Ray 06/04/18 10:10 CONCLUSION: Slight cardiomegaly and questionable slight consolidation right lower lung. Head CT 06/04/18 10:10 CONCLUSION: Slight chronic small vessel ischemic and atrophic changes and is stable area of lacunar type infarction left periventricular white matter tracks not significantly changed since 04/2018. Chest CT 06/04/18 11:22 CONCLUSION: 1. Probable inflammatory process and pneumonia in right midlung. 2. Right adrenal mass most likely an adenoma. 3. Right renal stones. 4. Follow-up is suggested with noncontrast chest CT in 6 months. Caprini VTE Risk Assessment Caprini VTE Risk Assessment: Moderate/High Risk (score >= 2) Caprini Risk Assessment Model: Point Value = 1 Point Value = 2 Point Value = 3 Point Value = 5 Age 41-60 Minor surgery BMI > 25 kg/m2 Swollen legs Varicose veins or History of unexplained or recurrent spontaneous Oral contraceptives or hormone replacement Sepsis (< 1 month) Serious lung disease, including pneumonia (< 1 month) Abnormal pulmonary function Acute myocardial infarction Congestive heart failure (< 1 month) History of inflammatory bowel disease Medical patient at bed rest Age 61-74 Arthroscopic surgery Major open surgery (> 45 min) Laparoscopic surgery (> 45 min) Malignancy Confined to bed (> 72 hours) Immobilizing plaster cast Central venous access Age >= 75 History of VTE Family history of VTE Factor V Leiden Prothrombin [id number] Lupus anticoagulant Anticardiolipin antibodies Elevated serum homocysteine Heparin-induced thrombocytopenia Other congenital or acquired thrombophilia Stroke (< 1 month) Elective arthroplasty Hip, pelvis, or leg fracture Acute spinal cord injury (< 1 month) Prophylaxis Regimen: Total Risk Factor Score Risk Level Prophylaxis Regimen 0-1 Low Early ambulation 2 Moderate Order ONE of the following: *Sequential Compression Device (SCD) *Heparin 5000 units SQ BID 3-4 Higher Order ONE of the following medications: *Heparin 5000 units SQ TID *Enoxaparin/Lovenox 40 mg SQ daily (WT < 150 kg, CrCl > 30 mL/min) *Enoxaparin/Lovenox 30 mg SQ daily (WT < 150 kg, CrCl > 10-29 mL/min) *Enoxaparin/Lovenox 30 mg SQ BID (WT < 150 kg, CrCl > 30 mL/min) AND/OR *Sequential Compression Device (SCD) 5 or more Highest Order ONE of the following medications: *Heparin 5000 units SQ TID (Preferred with Epidurals) *Enoxaparin/Lovenox 40 mg SQ daily (WT < 150 kg, CrCl > 30 mL/min) *Enoxaparin/Lovenox 30 mg SQ daily (WT < 150 kg, CrCl > 10-29 mL/min) *Enoxaparin/Lovenox 30 mg SQ BID (WT < 150 kg, CrCl > 30 mL/min) AND *Sequential Compression Device (SCD) Assessment and Plan - Plan This is a 72-year-old female with a history of hypothyroidism, ckd stage 3, hypertension, diabetes mellitus, coronary artery disease status post stent in the distant past and CVA. She presents to the emergency department complaining of right facial numbness. 06/03 she also found herself on the floor does not remember what happened. Was found to have hypoglycemia glucose of 60. In the emergency department, she was found to have right-sided pneumonia. Right facial numbness with history of recent CVA on antiplatelets. At this time she is neurologically intact. EKG tracing interpreted by me with sinus rhythm. She just had extensive stroke workup will obtain brain MRI. Check lipid profile and A1c. Continue aspirin and Plavix. Consult patient's neurologist. Allow permissive hypertension at this time. Swallowing evaluation consult speech and physical therapy Hospital-acquired pneumonia. Chest x-ray interpreted by me. Continue IV cefepime and Zithromax and follow-up cultures. Albuterol as needed. Obtain urinary pneumococcal and Legionella antigen. Syncope likely secondary to hypoglycemia. Neurochecks. She has history of diabetes mellitus we will hold diabetic medications for now. Monitor fingersticks with sliding scale coverage. Hypoglycemia protocol Incidental finding of right adrenal gland mass likely adenoma. Repeat CT scan in 6 months DVT prophylaxis with SCD and subcu heparin Discharge Planning: DC in 2-3 days. Home health care versus rehab
[2018-06-04] MEDS: Heparin - SQ 10,000 UNITS/ML Vial SQ SCH (17:43)
[2018-06-04] MEDS: Sod Chloride 0.9% Inj 1,000 ML IV.CONT SCH (17:44)
[2018-06-04] MEDS ORDERED: Chlorthalidone 50 MG Tablet PO SCH (18:00)
[2018-06-04] MEDS: Insulin NovoLOG Aspart Correctional Sugar Inj SQ SCH ×2 (18:47→22:04)
[2018-06-04] MEDS: Senna/Docusate Sodium 8.6/50 MG Tablet PO SCH (21:46)
[2018-06-04 23:17] LABS: CKMB Percent 0.6 % (0.0-4.0)
[2018-06-05] MEDS: Heparin - SQ 10,000 UNITS/ML Vial SQ SCH ×2 (06:30→17:28)
[2018-06-05] MEDS: Sod Chloride 0.9% Inj 1,000 ML IV.CONT SCH (06:32)
[2018-06-05] MEDS: Insulin NovoLOG Aspart Correctional Sugar Inj SQ SCH ×4 (08:11→21:21)
[2018-06-05] MEDS: Senna/Docusate Sodium 8.6/50 MG Tablet PO SCH ×2 (08:12→21:21)
[2018-06-05] MEDS: Aspirin 325 MG Tablet PO SCH (08:12)
[2018-06-05] MEDS ORDERED: Non-Formulary Drug (Valsartan-Hydrochlorothiazide [Valsartan-Hydrochlorothiazide] 1 TAB) PO SCH (09:00)
[2018-06-05] MEDS ORDERED: amLODIPine 10 MG Tablet PO SCH (09:00)
[2018-06-05] MEDS ORDERED: hydroCHLOROthiazide 25 MG Tablet PO SCH (09:00)
--- NOTE | 2018-06-05 09:29 | MB ---
cc: Robi Day MD DATE: 06/05/2018 HISTORY OF PRESENT ILLNESS: A 72-year-old right-handed woman with hypertension, insulin dependent diabetes, hypercholesterolemia, some renal insufficiency, and hypothyroidism. She tells me she was in the hospital with a stroke about a month ago with some speech problems and difficulty walking and then last evening, she wound up on the floor. She is not sure how she got there. She was in the bedroom evidently overnight and could not get up off the floor. MEDICATIONS AT HOME: 1. Insulin. 2. Valsartan. 3. Hydrochlorothiazide. 4. Pravastatin. 5. Potassium. 6. Thyroid. 7. Plavix. 8. Chlorthalidone. 9. Aspirin. 10. Amlodipine. PAST MEDICAL HISTORY: She was seen by past medical history seen by Dr. aLy 04/06/2018 with slurring of speech. She said she had a stroke in the past at that time, she was on 81 of aspirin then. MRI showed an acute very small left periventricular white matter change. MRA shows some atherosclerotic disease in the distal carotids intracranially. No large vessel occlusion. Carotid ultrasound was negative. He felt she had a small left ybarra radiata stroke and put her on Plavix. REVIEW OF SYSTEMS: She denies any history of seizures. She has not woken up, wet the bed or bit her tongue. No odd smells, tastes, or dj vu. She denied any history of atrial fibrillation, Coumadin, CABG. She sees Dr. Duron from cardiology. No history of hepatic or pulmonary disease, lupus, ulcer, cancer, or seizure. SOCIAL HISTORY: She is not a smoker or a drinker and lives by herself. FAMILY HISTORY: Negative for cancer, seizure or stroke. PHYSICAL EXAMINATION: On exam, sinus rhythm here, afebrile, 86, 18, 122/76. NEUROLOGIC: She is awake and alert. Speech is fluent. She is not aphasic. Visual barajas are full. Extraocular movements intact without status. Face is symmetric with normal sensation. Tongue was midline. No drift. Normal strength in the upper and lower extremities bilaterally. Toes downgoing bilaterally. Pinprick is intact throughout. She is not ataxic on [id number]. No apparent distress. LABORATORY DATA: CBC is normal. UA negative. Basic metabolic profile: Glucose evidently was 60 when they found her. CPK 1300. BMP: Creatinine 1.56, otherwise normal. GFR is 40. Troponin negative. Albumin normal CBC, normal. Last admission coag's were normal. LFTs were normal. In March, troponin was negative. She had an SPEP was normal 2016. Cholesterol was 354 in March with an LDL of 240. Her B12, B6 and thyroid were normal then, as well as a PTH. Urine drug screen was negative then. Rheumatoid factor has been negative. DONALD was negative. Hepatitis C negative. Brain MRI from 04/20/2018 showed the stable left stroke. Echocardiogram from 04/07/2018 showed ejection fraction 45-50%. Mitral and aortic valves with normal, left atrial size was reported as normal. Carotid ultrasound was negative back in March. In 2016, she had an EEG done that showed some mild slowing, otherwise normal. IMPRESSION: Found on the floor. She was seen last month for a questionable right-sided tingling and facial tingling, but that was not long after a stroke, probably related to that. She has an ER note that notes she may have had a recent PR. They do not mention the fact that she was on the floor; however. There are notes that say she woke up with tingling on her face. RECOMMENDATIONS: Found on the floor. Probably not anything new neurologically. I would recommend checking a Holter monitor. We are going to check an MRI of the brain, MRA [place] and neck and continue her on her current medications. With the cardiac history, I would recommend having cardiology see her for possible syncopal episode and I would defer to the med team to put in that consult, but she looks intact neurologically at this time. We will also recheck an EEG. We will check some standing blood pressures on her. Continue the aspirin, statin and Plavix. MD KAYLEIGH De Los Santos/NASREEN , 09:04 AM , 09:15 AM
[2018-06-05 10:11] LABS: Chol/HDL Ratio 2.54 Ratio; HDL Cholesterol 79.3 mg/dL (40.0-60.0)
[2018-06-05] MEDS ORDERED: Gadobutrol PF 10 MMOL/10 ML Vial (for RAD) IV.SIG ONE (12:50)
--- NOTE | 2018-06-05 13:07 | MR ---
EXAM DATE: 06/05/2018 12:52 PM EDT AGE/SEX: 72 years / Female INDICATIONS: CVA. CLINICAL DATA: This is the patient's initial encounter. Patient reports that signs and symptoms have been present for 1 day and indicates a pain score of 3/10. MEDICAL/SURGICAL HISTORY: Diabetes mellitus type II. Hypertension. Cerebrovascular disease. . Cardiac cath. COMPARISON: [facility] – [place], [place] HEAD W & W/O CONTRAST, 06/05/2018. . TECHNIQUE: 3D [id number] MRA was performed. Source images, multiplanar STS MIP, and 3D volum e MIP reconstructions were reviewed. FINDINGS: Both distal internal carotid arteries are patent. The anterior and middle cerebral circulation is wid [place] patent bilaterally. The vertebral arteries are patent. There are patchy areas of moderate narrowing in the basilar and po sterior cerebral arteries bilaterally. This would suggest the possibility of intracranial atheroscler otic disease. CONCLUSION: 1. Possible intracranial atherosclerotic disease in the posterior circulation as described above. 2. No large or central vessel occlusion identified. Electronically signed by: Get Webb MD 06/05/2018 1:05 PM EDT
--- NOTE | 2018-06-05 13:13 | MR ---
EXAM DATE: 06/05/2018 1:06 PM EDT AGE/SEX: 72 years / Female INDICATIONS: CVA. CLINICAL DATA: This is the patient's initial encounter. Patient reports that signs and symptoms have been present for 1 day and indicates a pain score of 3/10. MEDICAL/SURGICAL HISTORY: Hypertension. Diabetes mellitus type I. Cerebrovascular disease. . Cardiac cath. [place] [facility] [place] [facility] [place]/2018. . TECHNIQUE: Multiplanar, multisequence examination of the brain was performed without and with 10 ml M ultihance (gadobenate) contrast as a single exam dose. FINDINGS: Diffusion weighted images demonstrate a focus of restricted diffusion in the left frontal region as b efore, decreased in hyperintensity from the previous exam. This is characteristic of a subacute infar ct. There are no new areas of infarction identified. There are scattered foci of increased FLAIR sign al in the bilateral centrum semiovale and periventricular white matter. There is no hemorrhage. Remot e right thalamic lacunar infarct. There is mild atrophy. No abnormal areas of enhancement are seen. CONCLUSION: 1. There is no evidence of acute infarction or mass. 2. Reidentified is a left frontal infarct with mild diffusion hyperintensity, decreased in prominenc e from the previous study as expected. Electronically signed by: Rico Fonseca MD 06/05/2018 1:12 PM EDT
--- NOTE | 2018-06-05 14:11 | MR ---
EXAM DATE: 06/05/2018 1:22 PM EDT AGE/SEX: 72 years / Female INDICATIONS: . CVA. CLINICAL DATA: This is the patient's initial encounter. Patient reports that signs and symptoms have been present for 1 day and indicates a pain score of 3/10. MEDICAL/SURGICAL HISTORY: Diabetes mellitus type II. Hypertension. Cerebrovascular disease. . Cardia cath. [place] [facility] [place]/2018. . TECHNIQUE: 10 ml Gadavist (gadobutrol) contrast infused MRA (single exam dose) of the extracranial circulation was performed using a neurovascular coil. Postprocessing was performed, including rotati ng sub-volume maximum intensity projections of each carotid artery, rotating full-volume maximum inte nsity projections of both carotid arteries, sagittal and coronal sliding thin-slab reformations of ea ch carotid artery, and left oblique sliding thin-slab reformation through the aortic arch to include the origin of the arch branch vessels. FINDINGS: Aortic Arch : There is a three-vessel origin of the great vessels from the aorta. No evidence of o stial narrowing. Right Carotid : The common carotid artery is intact. The carotid bulb has a normal configuration wi thout ulceration or narrowing. The internal carotid artery lumen is smooth without stenosis. The ex ternal carotid artery is intact. Left Carotid : The common carotid artery is intact. The carotid bulb has a normal configuration wit hout ulceration or narrowing. The internal carotid artery lumen is smooth without stenosis. The ext ernal carotid artery is intact. Vertebrals : The vertebral arteries have a symmetric diameter. No stenotic lesions are seen. CONCLUSION: 1. No hemodynamically significant carotid artery stenosis identified. 2. Both vertebral arteries appear widely patent. Percent stenosis is calculated using the diameter of the stenotic region over the diameter of the nor mal distal internal carotid artery Electronically signed by: Get Webb MD 06/05/2018 2:10 PM EDT
--- NOTE | 2018-06-05 14:19 | P.PN ---
Subjective Interval history: Follow-up on patient with syncopal episode, right-sided facial numbness, HCAP. Patient seen and examined. Patient denies any facial numbness today. She denies any headache or visual changes. She denies any new onset weakness. Patient follows with Dr. Duron of cardiology. She states she recently completed 2 week Holter monitor test and has not gone back for the results. She denies any fever or chills. She denies any complaints of cough. She denies any shortness of breath. She denies any nausea, vomiting or abdominal pain. Physical Exam Vital signs: Vital Signs 06/04/18 14:23 06/04/18 20:00 06/05/18 00:00 Temperature 98.3 F 98.1 F Pulse Rate 86 89 87 Respiratory Rate 17 18 18 Blood Pressure 146/74 H 142/73 H Pulse Oximetry 95 94 L 06/05/18 04:00 06/05/18 08:00 06/05/18 12:41 Temperature 98.4 F 98 F Pulse Rate 86 82 78 Respiratory Rate 18 20 Blood Pressure 122/76 127/70 Pulse Oximetry 98 95 Intake & Output 06/04/18 06/05/18 06/05/18 18:59 06:59 18:59 Intake Total 1100 / 1100 100 / 100 Balance 1100 / 1100 100 / 100 Weight 91.626 kg 92.1 kg Intake: IV 1100 / 1100 100 / 100 NS Inj 1,000 ML @ 70 mls/hr IV. 1000 / 1000 CONT .[id number] NEETA Rx#:[id number] Maxipime Inj 2,000 MG In NS Inj 100 / 100 100 / 100 100 ML @ 200 mls/hr IV.SIG Q8H NEETA Rx#:[id number] Other: # Voids 3 Date of Last Bowel Movement 06/03/18 Narrative: GENERAL: This is an obese, well-developed -Welsh female patient, in no apparent distress. Awake and alert. Oriented 3. SKIN: Warm and dry. No generalized rash. HEAD: Atraumatic. Normocephalic. EYES: Pupils equal and round. No scleral icterus. No injection or drainage. ENT: No nasal bleeding or discharge. Mucous membranes pink and moist. NECK: Trachea midline. No JVD. CARDIOVASCULAR: Regular rate and rhythm. RESPIRATORY: No accessory muscle use. Clear to auscultation. Breath sounds equal bilaterally. GASTROINTESTINAL: Abdomen soft, non-tender, nondistended. MUSCULOSKELETAL: Extremities without clubbing, cyanosis, or edema. No obvious deformities. NEUROLOGICAL: Awake and alert. No obvious cranial nerve deficits. Motor grossly within normal limits. Normal speech. PSYCHIATRIC: Appropriate mood and affect; insight and judgment normal. Results - Labs CBC & Chem 7: 06/04/18 10:21 06/04/18 10:21 Laboratory Results - last 24 hr 06/04/18 06/04/18 06/04/18 10:21 17:41 21:40 POC Glucose 172 H 276 H Total Creatine Kinase 1391 H CK-MB (CK-2) 8.0 H CK-MB (CK-2) % 0.6 Triglycerides Cholesterol LDL Cholesterol, Calc HDL Cholesterol Cholesterol/HDL Ratio 06/05/18 06/05/18 06/05/18 07:33 07:56 11:25 POC Glucose 159 H 258 H Total Creatine Kinase CK-MB (CK-2) CK-MB (CK-2) % Triglycerides 139 Cholesterol 202 H LDL Cholesterol, Calc 95 HDL Cholesterol 79.3 H Cholesterol/HDL Ratio 2.54 Microbiology 06/04/18 10:21 Blood - Peripheral Aerobic Blood Culture - Preliminary No growth in 1 day 06/04/18 10:21 Blood - Peripheral Anaerobic Blood Culture - Preliminary No growth in 1 day 06/04/18 10:26 Blood - Peripheral Aerobic Blood Culture - Preliminary No growth in 1 day 06/04/18 10:26 Blood - Peripheral Anaerobic Blood Culture - Preliminary No growth in 1 day 06/04/18 14:49 Nasal Wash Influenza Types A,B Antigen - Final Negative for FLU A and B antigen Infection due to influenza A or B cannot be ruled out since the antigen present in the sample may be below the detection limit of the test. - Imaging Impressions Head MRI 06/05/18 00:00 CONCLUSION: 1. There is no evidence of acute infarction or mass. 2. Reidentified is a left frontal infarct with mild diffusion hyperintensity, decreased in prominence from the previous study as expected. Head MRA 06/05/18 00:00 CONCLUSION: 1. Possible intracranial atherosclerotic disease in the posterior circulation as described above. 2. No large or central vessel occlusion identified. Neck MRA 06/05/18 00:00 CONCLUSION: 1. No hemodynamically significant carotid artery stenosis identified. 2. Both vertebral arteries appear widely patent. Percent stenosis is calculated using the diameter of the stenotic region over the diameter of the normal distal internal carotid artery Assessment and Plan - Plan 72-year-old female with a history of hypothyroidism, ckd stage 3, hypertension, diabetes mellitus, coronary artery disease status post stent in the distant past and CVA admitted with recent syncopal episode and right-sided facial numbness. Found to have right-sided pneumonia. Right sided facial numbness in patient with history of recent CVA MRI head no evidence of acute infarction or mass Neck MRA no hemodynamically significant stenosis Head MRA possible intracranial atherosclerotic disease in the posterior circulation Normal appearing EEG -Neurology following, appreciate assistance -continue aspirin, Plavix and statin -PT/OT/ST -neuro checks Recent syncopal episode, possibly secondary to hypoglycemia -We will consult patient's public relations analyst for further evaluation, appreciate assistance -Continuous cardiac monitoring Hypertension -resume home dose of Norvasc -Monitor BP and adjust treatment accordingly Hospital-acquired pneumonia -Continue on IV cefepime and azithromycin -Albuterol as needed -Continue to monitor respiratory status -Supplemental oxygen as needed DM with recent hypoglycemic episode blood sugars running between mid 100s and 200s -Will begin Levemir 10u daily -continue accucheks and ISS -HgbA1c pending Hypothyroidism -Continue on home dose of Synthroid Incidental finding of right adrenal gland mass, likely adenoma -Repeat CT scan in 6 months DVT prophylaxis -Heparin Discussed Condition With: patient, nursing staff, Dr. Neri Discharge Planning: Patient not ready for discharge. Workup in progress. DC pending cardiology and neurology clearance.
--- NOTE | 2018-06-05 15:26 | MG ---
cc: Urvashi Chu MD EEG NUMBER: [id number] REFERRING PHYSICIAN: Robi Day MD PATIENT IDENTIFICATIONS: A 72-year-old patient in room 1525, awake, drowsy, asleep with photic stimulation. Last EEG in 2016 showed mild slowing, possibly left more than right. CT shows slight chronic small vessel disease, stable, lacune. Admitted with difficulty controlling blood sugar, syncope, with loss of consciousness, with a history of thyroid disease, neuropathy, hypertension, diabetes. On Synthroid, aspirin, antibiotic. DESCRIPTION OF RECORD: There is an alpha rhythm of 8 Hz, 20-40 microvolts. Fairly symmetrical. Tends to fall asleep towards less than the middle portion of the recording with some attenuation. Some leg twitching. Wakes herself up, arouses, but no epileptiform features during that portion. EKG looks sinus. Photic stimulation does elicit a posterior driving response. No evidence of any epileptiform features. IMPRESSION: Overall, normal appearing electroencephalogram. Clinical correlation. MD LOREE Donald/megan/donna , 02:59 PM , 03:06 PM
[2018-06-05 16:23] LABS: Hemoglobin A1c 7.2 % (4.3-6.0)
[2018-06-05] MEDS ORDERED: Azithromycin Inj 500 MG in Sodium Chlor 0.9% Inj 250 ML IV.SIG SCH (17:00)
--- NOTE | 2018-06-05 18:21 | P.CONCA ---
<Tia Arriaza - Last Filed: 06/05/18 22:00> History of Present Illness Service: Cardiology Consult date: 06/05/18 Reason for Consult: Syncope Primary Care Provider: UNKNOWN Chief Complaint: Syncope/R facial numbness History of Present Illness: Ms. Mon is a pleasant 72 year old known to Dr. Duron. She has a history of CAD , non-ischemic cardiomyopathy, hypertension, hyperlipidemia, diabetes mellitus. She was admitted in April for CVA. She has been on aspirin, plavix, statin. No atrial fibrillation was seen during hospitalization. Recent outpatient telemetry did not reveal any bradycardia or atrial fibrillation. She did have a 4 beat run of VT. Recent echocardiogram with EF 45-50%, mitral and aortic valves were normal, left atrial size was reported as normal. Carotid ultrasound without hemodynamically significant stenosis. She presented to the ED after an episode of "falling out" at home on Tuesday evening. She does not recall what happened prior. She remembers waking up and feeling overwhelmingly weak. She was able to make it to the phone and call 911. EMS reports she was hypoglycemic with blood glucose of 60. She also reported right sided facial numbness at that time. She was brought to the ED for further evaluation and treatment. CT Head showed slight chronic small vessel ischemic and atrophic changes and is stable area of lacunar type infarction left periventricular white matter tracks not significantly changed since 04/2018. CXR - Slight cardiomegaly and questionable slight consolidation right lower lung. CT chest - Probable inflammatory process and pneumonia in right midlung. Right adrenal mass most likely an adenoma. Right renal stones. Telemetry - NSR. Her neuro status is back to baseline. She is resting in bed without distress. She denies cp, sob, palpitations or complaints. Review of Systems All other systems reviewed negative except as stated in HPI PMFSH - History History Provided By: Patient - Medical History Medical History: Medical History (Last Reviewed 06/04/18 @ 17:59 by Gui Foreman DO) Diabetes Dizziness High cholesterol Hx of hysterectomy Hypertension Hypothyroidism Stroke Syncope - Surgical History Surgical History: Surgical History (Last Reviewed 06/04/18 @ 17:59 by Gui Foreman DO) Hx of cardiac catheterization - Family History Family History: Family History (Last Reviewed 06/04/18 @ 17:59 by Gui Foreman DO) Other CAD (coronary artery disease) - Tobacco History Second Hand Smoke Exposure: No Smoking Status: Never smoker - Alcohol History How Often Do You Have a Drink Containing Alcohol: Monthly or less - Substance Use History Substance History: No History of Abuse - Travel History Recent Travel in the [place] Within the Last 8 Weeks: No Recent Travel Out of the Country Within the Last 8 Weeks: No - Immunization History Tetanus Immunization: Unsure Hx Influenza Vaccine This Season: No Medications and Allergies Allergies Allergy/AdvReac Type Severity Reaction Status Date / Time No Known Drug Allergies Allergy Anaphylaxis Verified 06/04/18 14:12 DYE Allergy Severe DYE GIVEN Uncoded 06/04/18 10:[address] FRAZIER-PT WILL FIND OUT NAME OF DYE Home Medications Medication Instructions Recorded Confirmed Type Humalog U-100 Insulin 14 units SUB-Q ACHS 06/04/18 06/04/18 History amlodipine 10 mg PO DAILY 06/04/18 06/04/18 History clopidogrel 75 mg PO DAILY 06/04/18 06/04/18 History levothyroxine 25 mcg PO DAILY 06/04/18 06/04/18 History potassium chloride 10 meq PO DAILY 06/04/18 06/04/18 History pravastatin 40 mg PO DAILY 06/04/18 06/04/18 History valsartan-hydrochlorothiazide 1 tab PO DAILY 06/04/18 06/04/18 History Active Medications: Active Medications Acetaminophen (Tylenol) 650 mg PO Q4H PRN PRN Reason: Temp > 100.4 Albuterol (Albuterol Neb (Prn)) 2.5 mg NEB Q8HR NEB PRN PRN Reason: SHORTNESS OF BREATH/WHEEZING Amlodipine Besylate (Norvasc) 10 mg PO DAILY [facility] Aspirin (Aspirin) 325 mg PO DAILY [facility] Last Admin: 06/05/18 08:12 Dose: 325 mg Bisacodyl (Dulcolax Supp) 10 mg RECTAL DAILY PRN PRN Reason: SEVERE CONSITIPATION Clopidogrel Bisulfate (Plavix) 75 mg PO DAILY [facility] Last Admin: 06/05/18 08:12 Dose: 75 mg Dextrose (D50w Vial) 50 ml IV.PUSH UNSCH PRN PRN Reason: PER HYPOGLYCEMIA PROTOCOL Enalaprilat (Vasotec Inj) 1.25 mg IV.PUSH Q4H PRN PRN Reason: For SBP > 220 or DBP > 120 Glucagon (Glucagon Inj) 1 mg OTHER PRN PRN PRN Reason: for Hypoglycemia Protocol Heparin Sodium (Porcine) (Heparin Inj) 5,000 units SQ Q12H [facility] Last Admin: 06/05/18 17:28 Dose: 5,000 units Azithromycin 500 mg/ Sodium (Chloride) 250 mls @ 250 mls/hr IV.SIG Q24H [facility] Last Admin: 06/05/18 17:30 Dose: 250 mls/hr Cefepime HCl 2,000 mg/ Sodium (Chloride) 100 mls @ 200 mls/hr IV.SIG Q8H [facility] Last Infusion: 06/05/18 14:24 Dose: Infused Insulin Aspart (Novolog Insulin Correctional Sugar Inj) 0 unit SQ [facility]; Protocol Last Admin: 06/05/18 17:28 Dose: 1 unit Insulin Detemir (Levemir Inj) 10 unit SQ [facility] Lactulose (Lactulose Liq) 30 ml PO DAILY PRN PRN Reason: SEVERE CONSITIPATION Levothyroxine Sodium (Synthroid) 25 mcg PO DAILY@0600 [facility] Last Admin: 06/05/18 06:31 Dose: 25 mcg Miscellaneous (Pill Splitter) 1 each [facility] Ondansetron HCl (Zofran Inj) 4 mg IV.PUSH Q6H PRN PRN Reason: NAUSEA OR VOMITING Pravastatin Sodium (Pravachol) 40 mg PO DAILY [facility] Last Admin: 06/05/18 08:12 Dose: 40 mg Senna/Docusate Sodium (Dot-Colace) 1 tab PO BID [facility] Last Admin: 06/05/18 08:12 Dose: 1 tab Sennosides (Senokot) 17.2 mg PO Q12H PRN PRN Reason: Moderate Constipation Sodium Chloride (Ns Flush) 2 ml IV.FLUSH PRN PRN PRN Reason: FLUSH AFTER USING IV ACCESS Sodium Chloride (Ns Flush) 2 ml IV.FLUSH BID [facility] Last Admin: 06/05/18 08:11 Dose: 2 ml Exam Vital signs: Vital Signs 06/04/18 20:00 06/05/18 00:00 06/05/18 04:00 Temperature 98.3 F 98.1 F 98.4 F Pulse Rate 89 87 86 Respiratory Rate 18 18 18 Blood Pressure 146/74 H 142/73 H 122/76 Pulse Oximetry 95 94 L 98 06/05/18 08:00 06/05/18 12:41 06/05/18 16:00 Temperature 98 F 98 F Pulse Rate 82 78 82 Respiratory Rate 20 20 Blood Pressure 127/70 178/77 H Pulse Oximetry 95 96 06/05/18 17:25 Temperature Pulse Rate Respiratory Rate Blood Pressure Pulse Oximetry 96 Intake & Output 06/04/18 06/05/18 06/05/18 18:59 06:59 18:59 Intake Total 1100 / 1100 200 / 200 Balance 1100 / 1100 200 / 200 Weight 91.626 kg 92.1 kg Intake: IV 1100 / 1100 200 / 200 NS Inj 1,000 ML @ 70 mls/hr IV. 1000 / 1000 CONT .[id number] [facility] Rx#:[id number] Maxipime Inj 2,000 MG In NS Inj 100 / 100 200 / 200 100 ML @ 200 mls/hr IV.SIG Q8H [facility] Rx#:[id number] Other: # Voids 3 Date of Last Bowel Movement 06/03/18 Narrative: GENERAL: Awake, alert. No apparent distress. SKIN: Warm and dry. HEAD: Atraumatic. Normocephalic. EYES: Pupils equal and round. No scleral icterus. No injection or drainage. ENT: No nasal bleeding or discharge. Mucous membranes pink and moist. NECK: Trachea midline. No JVD. CARDIOVASCULAR: Regular rate and rhythm. No murmurs, rubs, gallops. PMI normal. RESPIRATORY: No accessory muscle use. Clear to auscultation. Breath sounds equal bilaterally. GASTROINTESTINAL: Abdomen soft, non-tender, nondistended. MUSCULOSKELETAL: Extremities without clubbing, cyanosis, or edema. No obvious deformities. NEUROLOGICAL: Awake and alert. No obvious cranial nerve deficits. Motor grossly within normal limits. Five out of 5 muscle strength in the arms and legs. Normal speech. PSYCHIATRIC: Appropriate mood and affect; insight and judgment normal. Results 06/04/18 10:21 06/04/18 10:21 Cardiac Enzymes 06/04/18 Range/Units 10:21 CK-MB (CK-2) 8.0 H (0.5-3.6) ng/mL Lipids 06/05/18 Range/Units 07:56 Triglycerides 139 (42-150) mg/dL Cholesterol 202 H (120-200) mg/dL HDL Cholesterol 79.3 H (40.0-60.0) mg/dL Cholesterol/HDL Ratio 2.54 Ratio Intake and Output 06/05/18 06/05/18 06/05/18 06:59 14:59 22:59 Intake Total 1000 / 1000 200 / 200 Balance 1000 / 1000 200 / 200 Intake: IV 1000 / 1000 200 / 200 NS Inj 1,000 ML @ 70 mls/hr IV. 1000 / 1000 CONT .[id number] [facility] Rx#:[id number] Maxipime Inj 2,000 MG In NS Inj 200 / 200 100 ML @ 200 mls/hr IV.SIG Q8H [facility] Rx#:[id number] Other: # Voids 3 Weight 92.1 kg - EKG Interpretation EKG: sinus rhythm Assessment and Plan - Assessment (1) Syncope Code(s): R55 - Syncope and collapse Status: Acute (2) CVA (cerebral vascular accident) Code(s): I63.9 - Cerebral infarction, unspecified Status: Acute (3) CAD (coronary artery disease) Code(s): I25.10 - Atherosclerotic heart disease of [place] coronary artery without angina pectoris Status: Chronic (4) Hospital-acquired bacterial pneumonia Code(s): J15.9 - Unspecified bacterial pneumonia Status: Acute (5) Hypertension Code(s): I10 - Essential (primary) hypertension Status: Chronic (6) Hyperlipidemia Code(s): E78.5 - Hyperlipidemia, unspecified Status: Chronic - Plan Syncopal episode possibly related to hypoglycemia. BP stable. Recent outpatient telemetry with underlying rhythm - normal sinus rhythm, no atrial fibrillation or lionel arrhythmias were noted. Continue to monitor telemetry for arrhythmias. Recent echo with EF 45-50%. Continue aspirin, plavix, statin , ARB, diuretic. Continue antibiotic therapy for pneumonia. P.T. for strengthening. Code Status: Full Discussed Condition With: Dr. Duron <Uziel Duron - Last Filed: 06/27/18 09:57> History of Present Illness Primary Care Provider: UNKNOWN [facility] - Medical History Medical History: Medical History (Last Reviewed 06/04/18 @ 17:59 by Gui Foreman DO) Diabetes Dizziness High cholesterol Hx of hysterectomy Hypertension Hypothyroidism Stroke Syncope - Surgical History Surgical History: Surgical History (Last Reviewed 06/04/18 @ 17:59 by Gui Foreman DO) Hx of cardiac catheterization - Family History Family History: Family History (Last Reviewed 06/04/18 @ 17:59 by Gui Foreman DO) Other CAD (coronary artery disease) Results 06/04/18 10:21 06/04/18 10:21 Assessment and Plan - Attending Attestation Pt. seen and examined. Agree with above plan. The care was reviewed with the pt.Syncope prob. sec to hypotension <Tia Arriaza - Last Filed: 06/05/18 22:00> (1) Syncope Qualifiers: Syncope type: unspecified Qualified Code(s): R55 - Syncope and collapse (6) Hyperlipidemia Qualifiers: Hyperlipidemia type: mixed hyperlipidemia Qualified Code(s): E78.2 - Mixed hyperlipidemia
[2018-06-05 20:39] VITALS: RESP 18
[2018-06-05] MEDS ORDERED: Insulin Detemir Inj 1,000 UNIT/10 ML Vial SQ SCH (21:00)
--- NOTE | 2018-06-05 22:13 | ECG ---
Date Performed: 06/04/2018 Time Performed: 11:07:34 PTAGE: 72 years EKG: Sinus rhythm NONSPECIFIC T-WAVE ABNORMALITY BORDERLINE ECG PREVIOUS TRACING : 04/20/2018 14.27 Since the previous tracing, no significant change noted DOCTOR: Gigi Otoole Interpretating Date/Time 06/05/2018 22:11:15
[2018-06-06] MEDS: Heparin - SQ 10,000 UNITS/ML Vial SQ SCH (06:50)
--- NOTE | 2018-06-06 07:57 | P.PNNEU ---
Subjective Subjective Comments: No acute events reported Active Medications: Active Medications Acetaminophen (Tylenol) 650 mg PO Q4H PRN PRN Reason: Temp > 100.4 Albuterol (Albuterol Neb (Prn)) 2.5 mg NEB Q8HR NEB PRN PRN Reason: SHORTNESS OF BREATH/WHEEZING Amlodipine Besylate (Norvasc) 10 mg PO DAILY [facility] Aspirin (Aspirin) 325 mg PO DAILY [facility] Last Admin: 06/05/18 08:12 Dose: 325 mg Bisacodyl (Dulcolax Supp) 10 mg RECTAL DAILY PRN PRN Reason: SEVERE CONSITIPATION Clopidogrel Bisulfate (Plavix) 75 mg PO DAILY [facility] Last Admin: 06/05/18 08:12 Dose: 75 mg Dextrose (D50w Vial) 50 ml IV.PUSH UNSCH PRN PRN Reason: PER HYPOGLYCEMIA PROTOCOL Enalaprilat (Vasotec Inj) 1.25 mg IV.PUSH Q4H PRN PRN Reason: For SBP > 220 or DBP > 120 Glucagon (Glucagon Inj) 1 mg OTHER PRN PRN PRN Reason: for Hypoglycemia Protocol Heparin Sodium (Porcine) (Heparin Inj) 5,000 units SQ Q12H [facility] Last Admin: 06/06/18 06:50 Dose: 5,000 units Hydrochlorothiazide (Hydrodiuril) 25 mg PO DAILY [facility] Azithromycin 500 mg/ Sodium (Chloride) 250 mls @ 250 mls/hr IV.SIG Q24H [facility] Last Infusion: 06/05/18 18:31 Dose: Infused Cefepime HCl 2,000 mg/ Sodium (Chloride) 100 mls @ 200 mls/hr IV.SIG Q8H [facility] Last Admin: 06/06/18 06:50 Dose: 200 mls/hr Insulin Aspart (Novolog Insulin Correctional Sugar Inj) 0 unit SQ ACHS [facility]; Protocol Last Admin: 06/05/18 21:21 Dose: 3 unit Insulin Detemir (Levemir Inj) 10 unit SQ HS [facility] Last Admin: 06/05/18 21:20 Dose: 10 unit Lactulose (Lactulose Liq) 30 ml PO DAILY PRN PRN Reason: SEVERE CONSITIPATION Levothyroxine Sodium (Synthroid) 25 mcg PO DAILY@0600 [facility] Last Admin: 06/06/18 06:51 Dose: 25 mcg Miscellaneous (Pill Splitter) 1 each OTHER UNSCH [facility] Ondansetron HCl (Zofran Inj) 4 mg IV.PUSH Q6H PRN PRN Reason: NAUSEA OR VOMITING Pravastatin Sodium (Pravachol) 40 mg PO DAILY [facility] Last Admin: 06/05/18 08:12 Dose: 40 mg Senna/Docusate Sodium (Dot-Colace) 1 tab PO BID [facility] Last Admin: 06/05/18 21:21 Dose: Not Given Sennosides (Senokot) 17.2 mg PO Q12H PRN PRN Reason: Moderate Constipation Sodium Chloride (Ns Flush) 2 ml IV.FLUSH PRN PRN PRN Reason: FLUSH AFTER USING IV ACCESS Sodium Chloride (Ns Flush) 2 ml IV.FLUSH BID [facility] Last Admin: 06/05/18 21:20 Dose: 2 ml Valsartan (Diovan) 80 mg PO DAILY [facility] Allergies/Adverse Reactions: Allergies Allergy/AdvReac Type Severity Reaction Status Date / Time No Known Drug Allergies Allergy Anaphylaxis Verified 06/04/18 14:12 DYE Allergy Severe DYE GIVEN Uncoded 06/04/18 10:[address] FRAZIER-PT WILL FIND OUT NAME OF DYE Physical Exam Vital signs: Vital Signs 06/05/18 08:00 06/05/18 08:40 06/05/18 12:41 Temperature 98 F 98 F Pulse Rate 82 80 78 Respiratory Rate 20 18 Blood Pressure 127/70 141/77 H Pulse Oximetry 95 99 06/05/18 16:00 06/05/18 17:25 06/05/18 20:00 Temperature 98 F 97.6 F Pulse Rate 82 91 H Respiratory Rate 20 18 Blood Pressure 178/77 H 118/69 Pulse Oximetry 96 96 96 06/05/18 20:38 06/06/18 00:00 06/06/18 00:05 Temperature 98 F 97.4 F L 97.7 F Pulse Rate 80 72 76 Respiratory Rate 18 18 18 Blood Pressure 148/77 H 159/71 H 147/78 H Pulse Oximetry 95 94 L 98 06/06/18 00:10 06/06/18 04:00 06/06/18 04:05 Temperature 97.7 F 98 F 98 F Pulse Rate 79 73 80 Respiratory Rate 18 18 18 Blood Pressure 144/78 H 156/80 H 172/71 H Pulse Oximetry 97 98 98 06/06/18 04:10 Temperature 97 F L Pulse Rate 84 Respiratory Rate 18 Blood Pressure 152/70 H Pulse Oximetry 95 Intake & Output 06/05/18 06/06/18 06/06/18 18:59 06:59 18:59 Intake Total 450 / 450 1100 / 1100 Balance 450 / 450 1100 / 1100 Weight 92.1 kg Intake: IV 450 / 450 1100 / 1100 NS Inj 1,000 ML @ 70 mls/hr IV. 1000 / 1000 CONT .[id number] [facility] Rx#:[id number] Azithromycin Inj 500 MG In NS 250 / 250 Inj 250 ML @ 250 mls/hr IV.SIG Q24H [facility] Rx#:[id number] Maxipime Inj 2,000 MG In NS Inj 200 / 200 100 / 100 100 ML @ 200 mls/hr IV.SIG Q8H [facility] Rx#:[id number] Other: # Voids 5 5 Date of Last Bowel Movement 06/04/18 Narrative: vff face sym nl voice 5/5 gait mainly steady Objective Laboratory Results - last 24 hr 06/05/18 06/05/18 06/05/18 07:56 07:56 11:25 POC Glucose 258 H Hemoglobin A1c 7.2 H Triglycerides 139 Cholesterol 202 H LDL Cholesterol, Calc 95 HDL Cholesterol 79.3 H Cholesterol/HDL Ratio 2.54 06/05/18 06/05/18 06/06/18 16:59 20:12 07:50 POC Glucose 196 H 241 H 146 H Hemoglobin A1c Triglycerides Cholesterol LDL Cholesterol, Calc HDL Cholesterol Cholesterol/HDL Ratio Microbiology 06/04/18 10:21 Aerobic Blood Culture - Preliminary Blood - Peripheral No growth in 1 day Anaerobic Blood Culture - Preliminary No growth in 1 day 06/04/18 10:26 Aerobic Blood Culture - Preliminary Blood - Peripheral No growth in 1 day Anaerobic Blood Culture - Preliminary No growth in 1 day Review/Management - Review/Management Plan: imp mri nothing new mrax2 i reviewed ok cow and neck neg eeg nl cards saw sr holter pend standing bp ok plan ok to dc on current antiplatelets when cleared by cards i would change to 81 asa and plavix in one week she wants o/p 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
[2018-06-06] MEDS: Insulin NovoLOG Aspart Correctional Sugar Inj SQ SCH (08:05)
[2018-06-06] MEDS ORDERED: hydroCHLOROthiazide 25 MG Tablet PO SCH (09:00)
[2018-06-06] MEDS ORDERED: amLODIPine 10 MG Tablet PO SCH (09:00)
[2018-06-06] MEDS: Senna/Docusate Sodium 8.6/50 MG Tablet PO SCH (09:04)
[2018-06-06] MEDS: Aspirin 325 MG Tablet PO SCH (09:05)
[2018-06-06] MEDS ORDERED: Metoprolol Tartrate 25 MG Tablet PO SCH (09:15)
--- NOTE | 2018-06-06 09:18 | P.DS ---
Date of admission: 06/04/18 14:25 Primary care physician: UNKNOWN Attending physician on discharge: Shannan Mcclain Anticipated date of discharge: 06/06/18 Brief History from admission: This is a 72-year-old female with a history of hypothyroidism, ckd stage 3, hypertension, diabetes mellitus, coronary artery disease status post stent in the distant past and CVA. She presents to the emergency department complaining of right facial numbness. States she woke up with tingling sensation on the right face. She was diagnosed with lacunar infarct with mild residual memory loss 2 months ago. She is on aspirin and Plavix which she has been taking. Denies fever, chills, nausea and focal weakness. Yesterday she also found herself on the floor does not remember what happened. She called 911 and was evaluated by EMS and was found to have hypoglycemia glucose of 60. She refused to be brought to the hospital. States she has been compliant with her diabetic medications no recent medical adjustment. She takes Lantus 60 units in the morning and Humalog 14 units preprandial. She has not skipped meals however yesterday it was her first time to get out of the house after having a stroke. In the emergency department, she was found to have right-sided pneumonia. Denies chills, shortness of breath and swallowing difficulty. She has had cough when she was on lisinopril which has resolved. She received IV cefepime and fluid bolus of 2 L. All other systems reviewed negative DS: Diagnosis - Discharge Diagnosis (1) Right facial numbness Status: Acute (2) Hypoglycemia Status: Acute (3) Recent cerebrovascular accident (CVA) Status: Acute (4) Hospital-acquired bacterial pneumonia Status: Acute (5) Mass of right adrenal gland Status: Acute (6) Syncope Status: Acute (7) Weakness Status: Acute (8) Hypertension Status: Chronic DS: Medications - Discharge Medications Prescriptions: aspirin 325 mg PO DAILY 7 Days #7 tab aspirin [Enteric Coated Aspirin] 81 mg PO DAILY #30 tab levofloxacin [Levaquin] 750 mg PO DAILY #5 tab metoprolol tartrate 12.5 mg PO BID #30 tab DS: Summary Hospital Course: Patient was seen in consultation by cardiology and neurology. Per cardiology, patient had a recent Holter monitor evaluation which failed to show any arrhythmias. She underwent a recent echocardiogram with EF of 45-50%. Workup was unremarkable. Patient reported a low blood sugar in the 60s at home. She was monitored with Accu-Cheks which showed no hypoglycemic episodes and blood sugars remained between mid 100-200s. Patient had no syncopal episodes or recurrence of right-sided facial numbness throughout her hospitalization. She was started on IV antibiotic therapy for hospital-acquired pneumonia and then transitioned to oral therapy at time of discharge. Patient was seen in consultation by physical therapy. Patient was cleared for discharge from specialty services. Patient was given prescription for outpatient physical therapy at her request was also set up for home health care PT/OT/ST at time of discharge. Patient was advised that incidental finding of a right adrenal gland mass and was recommended to follow-up with repeat CT scan in 6 months for further evaluation. - Time Spent with Patient Total time spent providing and/or coordinating discharge services: Greater than 30 minutes Exam Vital signs: Vital Signs 06/05/18 12:41 06/05/18 16:00 06/05/18 17:25 Temperature 98 F Pulse Rate 78 82 Respiratory Rate 20 Blood Pressure 178/77 H Pulse Oximetry 96 96 06/05/18 20:00 06/05/18 20:38 06/06/18 00:00 Temperature 97.6 F 98 F 97.4 F L Pulse Rate 91 H 80 72 Respiratory Rate 18 18 18 Blood Pressure 118/69 148/77 H 159/71 H Pulse Oximetry 96 95 94 L 06/06/18 00:05 06/06/18 00:10 06/06/18 04:00 Temperature 97.7 F 97.7 F 98 F Pulse Rate 76 79 73 Respiratory Rate 18 18 18 Blood Pressure 147/78 H 144/78 H 156/80 H Pulse Oximetry 98 97 98 06/06/18 04:05 06/06/18 04:10 Temperature 98 F 97 F L Pulse Rate 80 84 Respiratory Rate 18 18 Blood Pressure 172/71 H 152/70 H Pulse Oximetry 98 95 Intake & Output 06/05/18 06/06/18 06/06/18 18:59 06:59 18:59 Intake Total 450 / 450 1100 / 1100 100 / 100 Balance 450 / 450 1100 / 1100 100 / 100 Weight 92.1 kg Intake: IV 450 / 450 1100 / 1100 100 / 100 NS Inj 1,000 ML @ 70 mls/hr IV. 1000 / 1000 CONT .[id number] NEETA Rx#:[id number] Azithromycin Inj 500 MG In NS 250 / 250 Inj 250 ML @ 250 mls/hr IV.SIG Q24H NEETA Rx#:[id number] Maxipime Inj 2,000 MG In NS Inj 200 / 200 100 / 100 100 / 100 100 ML @ 200 mls/hr IV.SIG Q8H NEETA Rx#:[id number] Other: # Voids 5 5 Date of Last Bowel Movement 06/04/18 Narrative: GENERAL: This is an obese, well-developed -[place] female patient, in no apparent distress. Awake and alert. Oriented 3. SKIN: Warm and dry. No generalized rash. HEAD: Atraumatic. Normocephalic. EYES: Pupils equal and round. No scleral icterus. No injection or drainage. ENT: No nasal bleeding or discharge. Mucous membranes pink and moist. NECK: Trachea midline. No JVD. CARDIOVASCULAR: Regular rate and rhythm. RESPIRATORY: Nonlabored. Clear to auscultation. Breath sounds equal bilaterally. GASTROINTESTINAL: Abdomen soft, non-tender, nondistended. MUSCULOSKELETAL: Extremities without clubbing, cyanosis, or edema. No obvious deformities. NEUROLOGICAL: Awake and alert. No obvious cranial nerve deficits. Motor grossly within normal limits. Normal speech. PSYCHIATRIC: Appropriate mood and affect; insight and judgment normal. Results Procedures completed during hospitalization: None Completed studies during hospitalization: Chest X-Ray 06/04/18 10:10 CONCLUSION: Slight cardiomegaly and questionable slight consolidation right lower lung. Head CT 06/04/18 10:10 CONCLUSION: Slight chronic small vessel ischemic and atrophic changes and is stable area of lacunar type infarction left periventricular white matter tracks not significantly changed since 04/2018. Chest CT 06/04/18 11:22 CONCLUSION: 1. Probable inflammatory process and pneumonia in right midlung. 2. Right adrenal mass most likely an adenoma. 3. Right renal stones. 4. Follow-up is suggested with noncontrast chest CT in 6 months. Head MRI 06/05/18 00:00 CONCLUSION: 1. There is no evidence of acute infarction or mass. 2. Reidentified is a left frontal infarct with mild diffusion hyperintensity, decreased in prominence from the previous study as expected. Head MRA 06/05/18 00:00 CONCLUSION: 1. Possible intracranial atherosclerotic disease in the posterior circulation as described above. 2. No large or central vessel occlusion identified. Neck MRA 06/05/18 00:00 CONCLUSION: 1. No hemodynamically significant carotid artery stenosis identified. 2. Both vertebral arteries appear widely patent. Percent stenosis is calculated using the diameter of the stenotic region over the diameter of the normal distal internal carotid artery Labs on day of discharge: Labs from last 24 hours 06/06/18 06/05/18 06/05/18 07:50 20:12 16:59 POC Glucose 146 H 241 H 196 H Hemoglobin A1c Triglycerides Cholesterol LDL Cholesterol, Calc HDL Cholesterol Cholesterol/HDL Ratio 06/05/18 06/05/18 06/05/18 11:25 07:56 07:56 POC Glucose 258 H Hemoglobin A1c 7.2 H Triglycerides 139 Cholesterol 202 H LDL Cholesterol, Calc 95 HDL Cholesterol 79.3 H Cholesterol/HDL Ratio 2.54 Preliminary micro results at discharge 06/04/18 10:21 Aerobic Blood Culture - Preliminary Blood - Peripheral No growth in 1 day Anaerobic Blood Culture - Preliminary No growth in 1 day 06/04/18 10:26 Aerobic Blood Culture - Preliminary Blood - Peripheral No growth in 1 day Anaerobic Blood Culture - Preliminary No growth in 1 day - Impressions ITS Impressions Chest X-Ray 06/04/18 10:10 CONCLUSION: Slight cardiomegaly and questionable slight consolidation right lower lung. Head CT 06/04/18 10:10 CONCLUSION: Slight chronic small vessel ischemic and atrophic changes and is stable area of lacunar type infarction left periventricular white matter tracks not significantly changed since 04/2018. Chest CT 06/04/18 11:22 CONCLUSION: 1. Probable inflammatory process and pneumonia in right midlung. 2. Right adrenal mass most likely an adenoma. 3. Right renal stones. 4. Follow-up is suggested with noncontrast chest CT in 6 months. Head MRI 06/05/18 00:00 CONCLUSION: 1. There is no evidence of acute infarction or mass. 2. Reidentified is a left frontal infarct with mild diffusion hyperintensity, decreased in prominence from the previous study as expected. Head MRA 06/05/18 00:00 CONCLUSION: 1. Possible intracranial atherosclerotic disease in the posterior circulation as described above. 2. No large or central vessel occlusion identified. Neck MRA 06/05/18 00:00 CONCLUSION: 1. No hemodynamically significant carotid artery stenosis identified. 2. Both vertebral arteries appear widely patent. Percent stenosis is calculated using the diameter of the stenotic region over the diameter of the normal distal internal carotid artery Discharge Plan - Discharge Disposition Patient Disposition: /Home Health Service - Discharge Condition Condition: Good - Discharge Order Discharge Orders: Discharge Order (Routine); Ordered 06/06/18 Ordered By: Yvette Pepper - Discharge Details Anticipated Discharge Date: 06/06/18 - Physicians Team Primary Care Provider: UNKNOWN, Attending Provider: Shannan Mcclain Other Providers: Robi Richard MD ; Uziel Duron MD
--- NOTE | 2018-06-06 09:26 | P.DCO ---
- Diagnosis (5) Syncope - Physical Therapy Order: Evaluate and treat, Improve ambulation, Strength and gait training - Occupational Therapy Order: Evaluate and treat, Improve ADL, Gross motor coordination, Fine motor coordination - Speech Therapy Order: To improve: Speech and communication skills, Cognitive skills, Swallowing - Certification I have seen patient Akilah Mon on 06/06/18. My clinical findings support the need for the requested home health care services because: Deconditioned with increased weakness, Limited ability to care for self, High risk of falls I certify that my clinical findings support that this patient is homebound because: Unsteady gait/balance, Unsafe to leave home unassisted, Unable to use public transportation, Poor cardiac reserve (5) Syncope Qualifiers: Syncope type: unspecified Qualified Code(s): R55 - Syncope and collapse
[2018-06-06 09:28] VITALS: BP 152/73; PULSE 71; TEMP 98.1; O2SAT 99
--- NOTE | 2018-06-08 16:49 | HM ---
Date Performed: 06/06/2018 Time Performed: 07:37:00 HOOKUP DATE: 06/06/18 07:37:00 AM Tue ANALYSIS START TIME: 06/06/2018 7:42:00 AM ANALYSIS END TIME: 06/07/2018 7:42:49 AM PATIENT AGE: 72 PATIENT HEIGHT PATIENT WEIGHT DRUG LIST: ROOM 1525 PATIENT DIAGNOSIS: SYNCOPE TEST NARRATIVE: The patient's average heart rate was 84 BPM. No episodes of tachycardia wer e noted. No episodes of bradycardia were noted. No pauses exceeding 2.0 seconds were noted. 1073 ventricular ectopics, which represented 1% of the total beat count, were noted. The highest carina tricular ectopic frequency occurred from 06:00 PM to 07:00 PM Tue. During this time 170 VE(s) occurr ed. Ventricular ectopics were observed as 1031 isolated beat(s) and as 21 couplet(s). No runs were noted. Some of the ventricular beats occurred in bigeminal cycles. 39 supraventricular ectopics, which represented < 1% of the total beat count, were noted. The highest supraventricular ectopic fr equency occurred from 09:00 AM to 10:00 AM Tue. During this time 14 SVE(s) occurred. In channel 1, a single episode of ST depression (defined as -1.0 mm or more) occurred at 07:31:14 PM Tue with a maximum depression of -3.3 mm. In channel 2, a single episode of ST depression (defined as -1.0 mm o r more) occurred at 07:31:14 PM Tue with a maximum depression of -3.0 mm. In channel 3, a single epi sode of ST depression (defined as -1.0 mm or more) occurred at 07:31:14 PM Tue with a maximum depress ion of -2.6 mm. NO DIARY ENTRIES WERE RECORDED BY PATIENT POOR QUALITY TRACING AFTER 2234 DUE TO LEAD REMOVAL/POOR REPLACEMENT TEST INTERPRETATION: Agree with the narrative summary. Signed by : Peterson Baez
== END 2018-06-06 11:36 | disposition home health service (06) ==
LOC: NEPC 09:14 → NEDA 14:25 → N05 14:36
PROVIDERS: ADMIT Hospitalist; ATTEND Hospitalist